=== PATIENT | female | born 1965 | race Two or more races ===

== ENCOUNTER 2020-10-24 13:02 | Outpatient (REF) | payer OTHER, SELFPAY ==
--- NOTE | 2020-10-24 13:07 | MM_ITS ---
EXAMINATION: MM SCREENING DIGITAL BREAST TOMOSYNTHESIS, BILATERAL CLINICAL INFORMATION: Screening. Asymptomatic. The lifetime risk of breast cancer based on the Tyrer-Cuzick Model is 5.0%. COMPARISON: Mammography: October 19, 2019 and studies dating back to February 07, 2012 TECHNIQUE: Digital breast tomosynthesis is performed in both the craniocaudal and mediolateral oblique views along with computer-aided detection (CAD). Synthesized 2D images are generated from the tomosynthesis. FINDINGS: There are scattered areas of fibroglandular density (ACR BI-RADS breast composition Category b). There are no significant masses, abnormal calcifications, or other abnormalities. MM/MM tomosynthesis screening BI IMPRESSION: There are no significant changes from prior study. ASSESSMENT: BI-RADS 1: Negative RECOMMENDATION: Routine annual mammography screening. This patient's information was entered into a reminder system with a target due date for their next mammogram.
== END 2020-10-24 13:03 | disposition home or self-care (01) ==
LOC: HO.MAMMO 13:02
PROVIDERS: PCP Internal Medicine; Visit Provider Internal Medicine
DX: Z12.31 Encounter for screening mammogram for malignant neoplasm of breast (principal)
CPT/HCPCS: 77063; 77067

== ENCOUNTER 2021-07-05 09:43 | Outpatient (REF) | payer OTHER, SELFPAY ==
--- NOTE | ~2021-07-05 | US_ITS ---
EXAMINATION: US ABDOMEN COMPLETE CLINICAL INFORMATION: Abnormal findings of blood chemistry. COMPARISON: CT abdomen and pelvis 06/22/2007. TECHNIQUE: Real-time imaging of the abdominal viscera. FINDINGS: PANCREAS: Normal. ABDOMINAL AORTA: The proximal, mid, and distal segments are normal in caliber. INFERIOR VENA CAVA: Visualized portions are normal. LIVER: The liver is normal in size. The liver contour is normal. Liver echotexture is increased. No focal hepatic lesion. There is no intrahepatic biliary duct dilatation seen. GALLBLADDER: Normal. The gallbladder is physiologically distended without evidence of stones, sludge, polyps, wall thickening or pericholecystic fluid. COMMON BILE DUCT: Normal in caliber measuring 0.3 cm in diameter. RIGHT KIDNEY: Normal. No hydronephrosis. No renal calculi or focal parenchymal lesions. The kidney measures 10.5 cm in maximum dimension. LEFT KIDNEY: Normal. No hydronephrosis. No renal calculi or focal parenchymal lesions. The kidney measures 9.8 cm in maximum dimension. SPLEEN: Normal. The spleen measures 9.9 cm in maximum dimension. FREE FLUID: None. US/US abdomen complete IMPRESSION: Echogenic liver probably representing fatty infiltration.
== END 2021-07-05 09:44 | disposition home or self-care (01) ==
LOC: HO.US 09:43
PROVIDERS: PCP Internal Medicine; Visit Provider Internal Medicine
DX: R79.89 Other specified abnormal findings of blood chemistry (principal)
CPT/HCPCS: 76700

== ENCOUNTER 2021-11-16 13:50 | Outpatient (REF) | payer OTHER, SELFPAY ==
[2021-11-16 14:20] LABS: MANUAL DIFF FLAG NO
[2021-11-16 14:39] LABS: Basophils Percent Auto 0.4 % (0-2); Eosinophils Absolute Auto 0.3 X10*3/uL (0.0-0.4); Eosinophils Percent Auto 3.2 % (0-4); Hematocrit 43.1 % (37.0-47.0); Hemoglobin 13.9 g/dl (12.0-16.0); Imm Gran Abs Auto 0.03 X10*3/uL (0.00-0.03); Imm Gran Pct Auto 0.4 % (0.0-0.4); Lymphocytes Absolute Auto 2.6 X10*3/uL (1.2-4.9); Lymphocytes Percent Auto 33.1 % (20-40); Mean Corpuscular HGB Conc 32.3 g/dl (31.0-35.0); Mean Corpuscular Hemoglobin 29.4 pg (27.0-33.0); Mean Corpuscular Volume 91.1 fL (80.0-98.0); Mean Platelet Volume 12.7 fL (9.4-12.3); Monocytes Absolute Auto 0.6 X10*3/uL (0.1-1.2); Monocytes Percent Auto 7.4 % (2-11); Neutrophils Absolute Auto 4.4 x10*3/uL (2.0-8.3); Neutrophils Percent Auto 55.5 % (45-73); Platelet Count 146 X10*3/uL (160-400); Red Blood Count 4.73 X10*6/uL (4.20-5.50); Red Cell Distribution Width 13.5 % (11.0-16.0); White Blood Count 7.9 X10*3/uL (4.8-10.8)
[2021-11-16 14:44] LABS: INTERNATIONAL NORM RATIO 1.1 (0.9-1.1); Prothrombin Time 12.8 SEC (9.9-13.0)
[2021-11-16 15:19] LABS: Alanine Aminotransferase 78 U/L (0-31); Albumin Level 4.1 g/dL (3.5-5.0); Alkaline Phosphatase 254 U/L (39-117); Aspartate Amino Transferase 94 U/L (5-31); Bilirubin Direct 0.2 mg/dL (0.0-0.5); Bilirubin Total 0.6 mg/dL (0.0-1.0); Iron 106 mcg/dL (30-160); Percent Iron Saturation 23 % (15-50); Total Iron Binding Capacity 455 mcg/dL (228-428); Total Protein 7.7 g/dL (6.5-8.0); Unsaturated Iron Binding 349 ug/dL
[2021-11-16 15:41] LABS: Ferritin 75 ng/mL (10-250)
[2021-11-19 13:31] LABS: Alpha 1 Anti-trypsin 185 mg/dL (83-199)
[2021-11-19 15:55] LABS: Mitochondrial Antibodies NEGATIVE (NEGATIVE)
[2021-11-20 14:43] LABS: Anti Nuclear Antibody Pattern Nuclear, Centromere; Anti Nuclear Antibody Screen POSITIVE (NEGATIVE)
[2021-11-21 13:32] LABS: Smooth Muscle Antibody <20 U (<20)
[2021-11-22 08:17] LABS: FIB-ALT 66 U/L (6-29); FIB-Alpha-2-Macroglobulin 301 mg/dL (106-279); FIB-Apolipoprotein A1 138 mg/dL (101-198); FIB-GGT 144 U/L (3-70); FIB-Haptoglobin 113 mg/dL (43-212); FIB-Total Bilirubin 0.5 mg/dL (0.2-1.2); Liver Fibrosis Score 0.58; Liver Fibrosis Stage F3; Nec Inflam Act Grade A1-A2
== END 2021-11-16 13:51 | disposition home or self-care (01) ==
LOC: HO.LAB 13:50
PROVIDERS: PCP Internal Medicine; Visit Provider Internal Medicine
DX: R79.89 Other specified abnormal findings of blood chemistry (principal); K76.0 Fatty (change of) liver, not elsewhere classified
CPT/HCPCS: 36415; 80076; 81596; 82103; 82728; 83540; 85025; 85610; 86015; 86038; 86039; 86255; 86256

== ENCOUNTER 2021-11-23 10:10 | Outpatient (REF) | payer OTHER, SELFPAY ==
--- NOTE | ~2021-11-23 | MM_ITS ---
EXAMINATION: MM SCREENING DIGITAL BREAST TOMOSYNTHESIS, BILATERAL CLINICAL INFORMATION: Screening. Asymptomatic. The lifetime risk of breast cancer based on the Tyrer-Cuzick Model is 7%. COMPARISON: Mammography: 10/24/2020, 10/19/2019, 09/21/2018 TECHNIQUE: Digital breast tomosynthesis is performed in both the craniocaudal and mediolateral oblique views along with computer-aided detection (CAD). Synthesized 2D images are generated from the tomosynthesis. FINDINGS: There are scattered areas of fibroglandular density (ACR BI-RADS breast composition Category b). There are no significant masses, abnormal calcifications, or other abnormalities. Parenchymal pattern is similar to prior studies. There are no significant changes. MM/MM tomosynthesis screening BI IMPRESSION: No mammographic evidence of malignancy. ASSESSMENT: BI-RADS 1: Negative RECOMMENDATION: Routine annual mammography screening. This patient's information was entered into a reminder system with a target due date for their next mammogram.
== END 2021-11-23 10:11 | disposition home or self-care (01) ==
LOC: HO.MAMMO 10:10
PROVIDERS: PCP Internal Medicine; Visit Provider Internal Medicine
DX: Z12.31 Encounter for screening mammogram for malignant neoplasm of breast (principal)
CPT/HCPCS: 77063; 77067

== ENCOUNTER 2021-12-13 10:40 | Outpatient (REF) | payer OTHER, SELFPAY ==
[2021-12-13 10:54] LABS: MANUAL DIFF FLAG NO
[2021-12-13 11:09] LABS: Basophils Percent Auto 0.6 % (0-2); Eosinophils Absolute Auto 0.2 X10*3/uL (0.0-0.4); Eosinophils Percent Auto 3.7 % (0-4); Hematocrit 42.8 % (37.0-47.0); Hemoglobin 13.7 g/dl (12.0-16.0); Imm Gran Abs Auto 0.02 X10*3/uL (0.00-0.03); Imm Gran Pct Auto 0.3 % (0.0-0.4); Lymphocytes Absolute Auto 2.2 X10*3/uL (1.2-4.9); Lymphocytes Percent Auto 34.1 % (20-40); Mean Corpuscular Hemoglobin 29.7 pg (27.0-33.0); Mean Corpuscular Volume 92.6 fL (80.0-98.0); Mean Platelet Volume 12.3 fL (9.4-12.3); Monocytes Absolute Auto 0.5 X10*3/uL (0.1-1.2); Monocytes Percent Auto 8.1 % (2-11); Neutrophils Absolute Auto 3.4 x10*3/uL (2.0-8.3); Neutrophils Percent Auto 53.2 % (45-73); Platelet Count 163 X10*3/uL (160-400); Red Blood Count 4.62 X10*6/uL (4.20-5.50); Red Cell Distribution Width 13.6 % (11.0-16.0); White Blood Count 6.4 X10*3/uL (4.8-10.8)
[2021-12-13 11:12] LABS: INTERNATIONAL NORM RATIO 1.2 (0.9-1.1); Prothrombin Time 13.2 SEC (9.9-13.0)
[2021-12-13 11:15] LABS: Partial Thromboplastin Time 44.4 SEC (24.1-38.0)
[2021-12-13 11:35] LABS: Alanine Aminotransferase 99 U/L (0-31); Alkaline Phosphatase 222 U/L (39-117); Aspartate Amino Transferase 100 U/L (5-31); Bilirubin Direct 0.2 mg/dL (0.0-0.5); Bilirubin Total 0.7 mg/dL (0.0-1.0); Total Protein 7.4 g/dL (6.5-8.0)
[2021-12-13 11:46] LABS: Gamma Glutamyl Transpeptidase 171 U/L (7-33)
[2021-12-16 21:42] LABS: Prot Elec - Albumin 3.9 g/dL (3.8-4.8); Prot Elec - Alpha1 0.3 g/dL (0.2-0.3); Prot Elec - Alpha2 0.8 g/dL (0.5-0.9); Prot Elec - Beta 1 0.6 g/dL (0.4-0.6); Prot Elec - Beta 2 0.4 g/dL (0.2-0.5); Prot Elec - Gamma 1.2 g/dL (0.8-1.7); Prot Elec - Total Protein 7.2 g/dL (6.1-8.1)
== END 2021-12-13 10:41 | disposition home or self-care (01) ==
LOC: HO.LAB 10:40
PROVIDERS: PCP Internal Medicine; Visit Provider Internal Medicine
DX: R79.89 Other specified abnormal findings of blood chemistry (principal); R76.8 Other specified abnormal immunological findings in serum
CPT/HCPCS: 36415; 80076; 82977; 84165; 85025; 85610; 85730

== ENCOUNTER 2021-12-19 11:33 | Day surgery (SDC) | payer OTHER, SELFPAY ==
[2021-12-19] VITALS (9 sets, daily range): BP systolic 103–129; BP diastolic 56–76; PULSE 73–94; RESP 15–18; TEMP 36.8–37.3; O2SAT 94–99; BMI 39.8
--- NOTE | ~2021-12-19 | US_ITS ---
EXAMINATION: US GUIDED LIVER CORE BIOPSY CLINICAL INFORMATION: Elevated LFTs. COMPARISON: 07/05/2021 TECHNIQUE: Ultrasound-guided liver core biopsy. FINDINGS: Informed consent was obtained from the patient prior to the procedure. During this process, the procedure and potential alternatives were explained, along with the intended outcome and benefits. The risks of the procedure, as well as the risk of not doing the procedure, were discussed. The patient was given the opportunity to ask questions regarding the procedure and appeared competent to make medical decisions. A signed consent form which documents this discussion was placed in the medical record. Using sterile technique and ultrasound guidance, a 17-gauge guiding needle was directed into the left lobe of liver. Two 18-gauge core biopsies were then obtained and placed in formalin. Patient tolerated procedure without difficulty. US/US biopsy liver IMPRESSION: Hepatic core biopsy as described.
[2021-12-19 12:03] LABS: MANUAL DIFF FLAG NO
[2021-12-19 12:09] LABS: Basophils Percent Auto 0.6 % (0-2); Eosinophils Absolute Auto 0.2 X10*3/uL (0.0-0.4); Eosinophils Percent Auto 2.7 % (0-4); Hematocrit 43.9 % (37.0-47.0); Hemoglobin 14.1 g/dl (12.0-16.0); Imm Gran Abs Auto 0.02 X10*3/uL (0.00-0.03); Imm Gran Pct Auto 0.3 % (0.0-0.4); Lymphocytes Absolute Auto 2.7 X10*3/uL (1.2-4.9); Lymphocytes Percent Auto 40.5 % (20-40); Mean Corpuscular HGB Conc 32.1 g/dl (31.0-35.0); Mean Corpuscular Hemoglobin 29.5 pg (27.0-33.0); Mean Corpuscular Volume 91.8 fL (80.0-98.0); Mean Platelet Volume 12.2 fL (9.4-12.3); Monocytes Absolute Auto 0.5 X10*3/uL (0.1-1.2); Monocytes Percent Auto 6.9 % (2-11); Neutrophils Absolute Auto 3.3 x10*3/uL (2.0-8.3); Platelet Count 162 X10*3/uL (160-400); Red Blood Count 4.78 X10*6/uL (4.20-5.50); Red Cell Distribution Width 13.5 % (11.0-16.0); White Blood Count 6.7 X10*3/uL (4.8-10.8)
[2021-12-19 12:12] LABS: INTERNATIONAL NORM RATIO 1.2 (0.9-1.1); Prothrombin Time 13.1 SEC (9.9-13.0)
[2021-12-19 12:15] LABS: Partial Thromboplastin Time 49.6 SEC (24.1-38.0)
[2021-12-19] MEDS: Lidocaine HCl 1 % MPF 5 ML VIAL SUBCUT (13:55)
== END 2021-12-19 17:00 | disposition home or self-care (01) ==
PROVIDERS: Radiology Diagnostic Radiology; PCP Internal Medicine; Visit Provider Radiology Diagnostic Radiology
DX: R79.89 Other specified abnormal findings of blood chemistry (principal); R76.8 Other specified abnormal immunological findings in serum; K76.0 Fatty (change of) liver, not elsewhere classified; E78.5 Hyperlipidemia, unspecified; R31.29 Other microscopic hematuria; E66.9 Obesity, unspecified; Z68.39 Body mass index [BMI] 39.0-39.9, adult; Z79.899 Other long term (current) drug therapy
CPT/HCPCS: 36415; 47000; 76942; 85025; 85610; 85730; 88307; 88313; 99152; J2250; J3010

== ENCOUNTER 2022-01-02 10:51 | Outpatient (REF) | payer OTHER, SELFPAY ==
[2022-01-02 12:57] LABS: Alanine Aminotransferase 69 U/L (0-31); Alkaline Phosphatase 220 U/L (39-117); Aspartate Amino Transferase 55 U/L (5-31); Bilirubin Direct 0.2 mg/dL (0.0-0.5); Bilirubin Total 0.5 mg/dL (0.0-1.0); Total Protein 7.3 g/dL (6.5-8.0)
== END 2022-01-02 10:52 | disposition home or self-care (01) ==
LOC: HO.LAB 10:51
PROVIDERS: PCP Internal Medicine; Visit Provider Internal Medicine
DX: K76.0 Fatty (change of) liver, not elsewhere classified (principal); R79.89 Other specified abnormal findings of blood chemistry
CPT/HCPCS: 36415; 80076

== ENCOUNTER 2022-04-29 12:01 | Outpatient (REF) | payer OTHER, SELFPAY ==
[2022-04-29 13:15] LABS: Cholesterol 186 mg/dL; HDL Cholesterol 36 mg/dL; LDL Cholesterol Calculated 125 mg/dl; Triglycerides 126 mg/dL
[2022-04-29 13:16] LABS: Alanine Aminotransferase 45 U/L (0-31); Albumin Level 3.9 g/dL (3.5-5.0); Alkaline Phosphatase 176 U/L (39-117); Aspartate Amino Transferase 58 U/L (5-31); Bilirubin Direct 0.3 mg/dL (0.0-0.5); Bilirubin Total 0.6 mg/dL (0.0-1.0); Total Protein 7.2 g/dL (6.5-8.0)
== END 2022-04-29 12:02 | disposition home or self-care (01) ==
LOC: HO.LAB 12:01
PROVIDERS: Absent Provider Internal Medicine; PCP Internal Medicine; Visit Provider Internal Medicine
DX: E78.5 Hyperlipidemia, unspecified (principal); K76.0 Fatty (change of) liver, not elsewhere classified; R79.89 Other specified abnormal findings of blood chemistry
CPT/HCPCS: 36415; 80061; 80076

== ENCOUNTER 2022-08-13 13:57 | Outpatient (REF) | payer OTHER, SELFPAY ==
[2022-08-13 16:23] LABS: Alanine Aminotransferase 65 U/L (0-31); Albumin Level 3.9 g/dL (3.5-5.0); Alkaline Phosphatase 199 U/L (39-117); Aspartate Amino Transferase 93 U/L (5-31); Bilirubin Direct 0.2 mg/dL (0.0-0.5); Bilirubin Total 0.6 mg/dL (0.0-1.0); Cholesterol 194 mg/dL; HDL Cholesterol 41 mg/dL; LDL Cholesterol Calculated 129 mg/dl; Total Protein 7.5 g/dL (6.5-8.0); Triglycerides 123 mg/dL
[2022-08-18 14:01] LABS: ANA Pattern 2 Nuclear, Homogeneous; ANA Titer 2 1:40 titer; Anti Nuclear Antibody Pattern Nuclear, Centromere; Anti Nuclear Antibody Screen POSITIVE (NEGATIVE)
== END 2022-08-13 13:58 | disposition home or self-care (01) ==
LOC: HO.LAB 13:57
PROVIDERS: Internal Medicine; Absent Provider Internal Medicine; PCP Internal Medicine; Visit Provider Family Medicine
DX: E78.5 Hyperlipidemia, unspecified (principal); K76.0 Fatty (change of) liver, not elsewhere classified; R79.89 Other specified abnormal findings of blood chemistry; K74.00 Hepatic fibrosis, unspecified
CPT/HCPCS: 36415; 80061; 80076; 86038; 86039

== ENCOUNTER 2022-11-26 10:45 | Outpatient (REF) | payer OTHER, SELFPAY ==
--- NOTE | ~2022-11-26 | MM_ITS ---
EXAMINATION: MM SCREENING DIGITAL BREAST TOMOSYNTHESIS, BILATERAL CLINICAL INFORMATION: Screening. Asymptomatic. The lifetime risk of breast cancer based on the Tyrer-Cuzick Model is 6.0%. COMPARISON: Mammography: November 23, 2021 and studies dating back to July 06, 2015 TECHNIQUE: Digital breast tomosynthesis is performed in both the craniocaudal and mediolateral oblique views along with computer-aided detection (CAD). Synthesized 2D images are generated from the tomosynthesis. FINDINGS: There are scattered areas of fibroglandular density (ACR BI-RADS breast composition Category b). There are no significant masses, abnormal calcifications, or other abnormalities. MM/MM tomosynthesis screening BI IMPRESSION: No significant changes from prior exam. ASSESSMENT: BI-RADS 1: Negative RECOMMENDATION: Routine annual mammography screening. This patient's information was entered into a reminder system with a target due date for their next mammogram.
== END 2022-11-26 10:46 | disposition home or self-care (01) ==
LOC: HO.MAMMO 10:45
PROVIDERS: Visit Provider Internal Medicine
DX: Z12.31 Encounter for screening mammogram for malignant neoplasm of breast (principal)
CPT/HCPCS: 77063; 77067

== ENCOUNTER 2022-12-05 14:15 | Outpatient (REF) | payer OTHER, SELFPAY ==
[2022-12-05 14:33] LABS: MANUAL DIFF FLAG NO
[2022-12-05 14:46] LABS: INTERNATIONAL NORM RATIO 1.2 (0.9-1.1); Prothrombin Time 13.8 SEC (10.0-13.1)
[2022-12-05 14:51] LABS: Basophils Absolute Auto 0.1 X10*3/uL (0.0-0.2); Eosinophils Absolute Auto 0.1 X10*3/uL (0.0-0.4); Eosinophils Percent Auto 1.5 % (0-4); Hematocrit 42.6 % (37.0-47.0); Hemoglobin 13.8 g/dl (12.0-16.0); Imm Gran Abs Auto 0.03 X10*3/uL (0.00-0.03); Imm Gran Pct Auto 0.4 % (0.0-0.4); Lymphocytes Absolute Auto 2.3 X10*3/uL (1.2-4.9); Lymphocytes Percent Auto 31.1 % (20-40); Mean Corpuscular HGB Conc 32.4 g/dl (31.0-35.0); Mean Corpuscular Hemoglobin 29.7 pg (27.0-33.0); Mean Corpuscular Volume 91.8 fL (80.0-98.0); Mean Platelet Volume 12.1 fL (9.4-12.3); Monocytes Absolute Auto 0.5 X10*3/uL (0.1-1.2); Monocytes Percent Auto 6.4 % (2-11); Neutrophils Absolute Auto 4.4 x10*3/uL (2.0-8.3); Neutrophils Percent Auto 59.6 % (45-73); Platelet Count 154 X10*3/uL (160-400); Red Blood Count 4.64 X10*6/uL (4.20-5.50); Red Cell Distribution Width 13.2 % (11.0-16.0); White Blood Count 7.3 X10*3/uL (4.8-10.8)
[2022-12-05 15:14] LABS: Alanine Aminotransferase 51 U/L (0-31); Albumin Level 3.7 g/dL (3.5-5.0); Alkaline Phosphatase 191 U/L (39-117); Aspartate Amino Transferase 83 U/L (5-31); Bilirubin Direct 0.3 mg/dL (0.0-0.5); Bilirubin Total 0.7 mg/dL (0.0-1.0); Total Protein 7.5 g/dL (6.5-8.0)
[2022-12-09 14:24] LABS: Smooth Muscle Antibody <20 U (<20)
[2022-12-10 13:19] LABS: Mitochondrial Antibodies NEGATIVE (NEGATIVE)
[2022-12-10 15:52] LABS: Anti Nuclear Antibody Pattern Nuclear, Centromere; Anti Nuclear Antibody Screen POSITIVE (NEGATIVE)
[2022-12-10 23:24] LABS: Liver Kidney Microsomal Ab <=20.0 U (<=20.0)
[2022-12-12 16:33] LABS: FIB-ALT 43 U/L (6-29); FIB-Alpha-2-Macroglobulin 311 mg/dL (106-279); FIB-Apolipoprotein A1 115 mg/dL (101-198); FIB-GGT 36 U/L (3-70); FIB-Haptoglobin 72 mg/dL (43-212); FIB-Total Bilirubin 0.6 mg/dL (0.2-1.2); Liver Fibrosis Score 0.62; Liver Fibrosis Stage F3; Nec Inflam Act Grade A1; Nec Inflam Act Score 0.34
== END 2022-12-05 14:16 | disposition home or self-care (01) ==
LOC: HO.LAB 14:15
PROVIDERS: PCP Internal Medicine; Visit Provider Internal Medicine
DX: R79.89 Other specified abnormal findings of blood chemistry (principal); R76.8 Other specified abnormal immunological findings in serum; K75.81 Nonalcoholic steatohepatitis (NASH); K76.0 Fatty (change of) liver, not elsewhere classified
CPT/HCPCS: 36415; 80076; 81596; 85025; 85610; 86015; 86038; 86039; 86255; 86256; 86376

== ENCOUNTER 2023-04-03 11:46 | Outpatient (REF) | payer OTHER, SELFPAY ==
[2023-04-03 12:48] LABS: Alanine Aminotransferase 35 U/L (0-31); Albumin Level 3.3 g/dL (3.5-5.0); Alkaline Phosphatase 168 U/L (39-117); Aspartate Amino Transferase 72 U/L (5-31); Bilirubin Direct 0.7 mg/dL (0.0-0.5); Bilirubin Total 1.3 mg/dL (0.0-1.0); Total Protein 7.1 g/dL (6.5-8.0)
== END 2023-04-03 11:47 | disposition home or self-care (01) ==
LOC: HO.LAB 11:46
PROVIDERS: Visit Provider Internal Medicine
DX: K76.0 Fatty (change of) liver, not elsewhere classified (principal); R79.89 Other specified abnormal findings of blood chemistry
CPT/HCPCS: 36415; 80076

== ENCOUNTER 2023-05-05 08:47 | Outpatient (REF) | payer OTHER, SELFPAY | END 2023-05-05 08:48 | disposition home or self-care (01) | LOC: HO.HOSX 08:47 | PROVIDERS: Visit Provider Physician Assistant | DX: Z13.89 Encounter for screening for other disorder (principal) ==

== ENCOUNTER 2023-05-20 08:42 | Outpatient (REF) | payer OTHER, SELFPAY | END 2023-05-20 08:43 | disposition home or self-care (01) | LOC: HO.HOSX 08:42 | PROVIDERS: Visit Provider Physician Assistant | DX: Z13.89 Encounter for screening for other disorder (principal) ==

== ENCOUNTER 2023-06-19 08:39 | Outpatient (AMB) | payer OTHER, SELFPAY ==
[2023-06-19 08:41] VITALS: BP 112/72; PULSE 78; TEMP 36.7; O2SAT 98; BMI 32.1
--- NOTE | 2023-06-19 08:41 | MHC.OFFVIS ---
Intake Vital Signs 06/19/23 08:41 Height 5 ft 2 in Weight 175 lb 11.335 oz BMI 32.1 BP 112/72 Blood Pressure Location Lt brachial Position Sitting Pulse 78 Pulse Source Pulse Oximeter Temp 98.1 F Temp Source Skin Pulse Oximetry (%) 98 Oxygen Delivery Method Room Air Intake Visit Reasons: Positive LUCÍA Intake Note: New patient here for positive LUCÍA. 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 Senior Computer Specialist Required: Yes Senior Computer Specialist Language: Slab Installer Name: Clemente [email or web address] Information Interpreted: clinical only Accompanied by: Self / Same As Patient Allergies No Known Allergies [No Known Allergies*] Allergy (Unverified 06/19/23 08:44) Medication List - Last Reconciled 06/19/23 by Fred Pappas MD cetirizine 10 mg PO DAILY clotrimazole 1% appl topical diclofenac sodium 1% topical BID emtricitabine-tenofovir (TDF) 200-300 mg 1 tab PO DAILY meloxicam 15 mg PO DAILY sertraline 100 mg PO DAILY ursodiol mg PO BID HPI HPI Comments History of Present Illness Details The patient is referred for evaluation of a positive LUCÍA. She does have some liver disease and this is thought to be steatohepatitis. They did do some laboratory work and the LUCÍA was positive at a titer of 1:1280. This was in a centromere pattern. She does have some knee pain that is worse with weight-bearing activity. She has received corticosteroid injections in Orthopedics for this that were helpful. There is no known history of injury to the knees. They do not really show any swelling. She takes Truvada because her has HIV although his viral load is suppressed with triple therapy. She has been trying to lose weight to help the liver issue. [facility] Medical History (Updated 06/19/23 @ 09:17 by Fred Pappas MD) Hx of obesity Hx of mixed hyperlipidemia History of fatty infiltration of liver History of elevated antinuclear antibody (LUCÍA) Social History (Updated 06/19/23 @ 08:47 by GROVER Queen) Household Members: Spouse and None Household Members Other:: daughter Alcohol intake: never Patient Tobacco Use Status: Never used Tobacco Current occupational status: unemployed Review of Systems Const Details: Some intentional weight loss. Negative for appetite change, fever, chills, malaise and fatigue Eyes Details: Itchy eyes at times attributed to allergy. Negative for vision change, dry eyes,headaches and dizziness ENT Details: Negative for hearing change, tinnitus, oral ulcer, nose bleeds and oral dryness. Card Details: Negative chest pain, edema and syncope Resp Details: Negative for SOB, cough and wheezing GI Details: Negative indigestion/heartburn, nausea, abdominal pain, bowel changes, diarrhea, constipation and bloody stool. Details: Negative for dysuria, hematuria, nocturia, decreased force/flow and genital discharge Skin/Breast Details: Negative for itching, rash, hives, Raynaud's symptoms, sun sensitivity, and skin cancer Neuro Details: Negative for epilepsy, palsy, stroke, changes in speech, tingling and weakness Psych Details: Depression stable on current meds. Endo Details: Negative for polyuria and polydypsia Davy/Lymph Details: Negative for excessive bruising or bleeding. Physical Exam Vital Signs: Last Vital Signs Temp 98.1 F 06/19/23 08:41 Pulse 78 06/19/23 08:41 BP 112/72 06/19/23 08:41 Pulse Ox 98 06/19/23 08:41 Oxygen Delivery Method Room Air 06/19/23 08:41 BMI result Body Mass Index 32.1 APPEARANCE: Patient in no acute distress EYES no redness, pupils equal and reactive to light, eyelids normal EARS: External ear normal, canal clear and tympanic membrane normal. NOSE/SINUS: Airflow through both nares, no nasal discharge, no bleeding THROAT: Oral mucosa moist, no ulcerations NECK: No thyromegaly or masses, no adenopathy, trachea midline. HEART: Regulrar rhythm, S1-S2 heard, no murmurs, rubs or gallops. LUNG: Clear to percussion and auscultation ABD: Normal bowel sounds. The liver edge is palpable about 2 cm below the right costal margin. No nodularity or tenderness. Elsewhere no organomegaly, masses or tenderness. EXTREMITIES: No edema, no calf tenderness, normal peripheral pulses. NEURO: Oriented and alert x3. No focal weakness. Reflexes symmetric. Gait normal. SKIN: No inflammatory or neoplastic lesions. Normal color and turgor JOINT EXAM:.?? Cervical Spine:.? Full range of motion without pain; no tenderness. Thoracic Spine:.? No scoliosis.? No tenderness on palpation. Lumbar Spine:.? Alignment normal.? Full range of motion without pain, no tenderness. Chest Wall:.? No tenderness, swelling, increased warmth or erythema. Hands:.? Normal pain-free range of motion without tenderness, swelling, increased warmth or erythema. Able to make a full fist and has a good sustainability director strength. Wrists:.? Normal pain-free range of motion without tenderness, swelling, increased warmth or erythema. Elbows:. Normal pain-free range of motion without tenderness, swelling, increased warmth or erythema. Shoulders:.?? Full range of motion without pain. No tenderness, weakness, swelling, increased warmth or erythema. Hips:.? Full range of motion without pain. Hip bursa:.? No tenderness. Knees:.?? Normal pain-free range of motion with some mild patellofemoral crepitus. There is minimal medial compartment tenderness but no effusion, swelling, increased warmth or erythema.? Ankles:.? Normal pain-free range of motion without tenderness, swelling, increased warmth or erythema. Feet:.? There is mild, nontender 1st MTP bony enlargement bilaterally. This is a bit more prominent on the right where it is associated with some hallux valgus deformity. The rest of the joints have normal pain-free range of motion without tenderness, swelling, increased warmth or erythema. Tender points:.? No tenderness to digital palpation at the occiput, trapezius, second rib, lateral epicondyle, knees, greater trochanter and gluteal area bilaterally. ? Assessment & Plan Assessment & Plan (1) History of fatty infiltration of liver: Comment: on liver biopsy 12/2021 Code(s): Z87.19 - Personal history of other diseases of the digestive system (2) Osteoarthritis of knees, bilateral: Code(s): M17.0 - Bilateral primary osteoarthritis of knee (3) History of elevated antinuclear antibody (LUCÍA): Code(s): Z87.898 - Personal history of other specified conditions Plan Her symptoms and signs do not really suggest an active inflammatory arthritis. The LUCÍA titer is fairly high and is of a centromere pattern. This would suggest CREST syndrome. However she does not really have any manifestations of that disorder. There are signs of osteoarthritis in the knees. I tried to reassure her that I do not really see signs of an active autoimmune inflammatory disease. We will check some other serologies to look into the LUCÍA. I do not think rheumatology follow-up is needed unless further symptoms develop or the antibody studies show further questions. Orders: Orders Anti DNA DS Antibody Today Z87.898 - Personal history of other specified conditions Anti-Centromere B Antibodies Today Z87.89 - Personal history of other specified conditions Creatinine Today Z87.898 - Personal history of other specified conditions Erythrocyte Sedimentation Rate Today Z87.898 - Personal history of other specified conditions Protein Creatinine Ratio, Ur Today Z87.89 - Personal history of other specified conditions Anti Extractable Nuclear Ag Today Z87.89 - Personal history of other specified conditions Complete Blood Count Auto Diff Today Z87.89 - Personal history of other specified conditions Coding Level of Care Code New Pt Level 3 (45257) Diagnoses History of fatty infiltration of liver Z87.19 Osteoarthritis of knees, bilateral M17.0 History of elevated antinuclear antibody (LUCÍA) Z87.898
== END 2023-06-19 09:16 | disposition home or self-care (01) ==
LOC: HO.RHE 08:39
PROVIDERS: PCP Internal Medicine; Visit Provider Internal Medicine Rheumatology
DX: Z87.19 Personal history of other diseases of the digestive system (principal); M17.0 Bilateral primary osteoarthritis of knee; Z87.898 Personal history of other specified conditions
CPT/HCPCS: 99203

== ENCOUNTER → 2023-06-19 08:39 | Outpatient (BNVA) | payer OTHER, SELFPAY | PROVIDERS: PCP Internal Medicine; Visit Provider Internal Medicine Rheumatology ==

== ENCOUNTER 2023-06-19 09:19 | Outpatient (REF) | payer OTHER, SELFPAY ==
[2023-06-19 10:48] LABS: MANUAL DIFF FLAG NO
[2023-06-19 10:55] LABS: Basophils Absolute Auto 0.1 X10*3/uL (0.0-0.2); Basophils Percent Auto 1.1 % (0-2); Eosinophils Absolute Auto 0.2 X10*3/uL (0.0-0.4); Eosinophils Percent Auto 2.5 % (0-4); Hematocrit 41.5 % (37.0-47.0); Hemoglobin 13.5 g/dl (12.0-16.0); Imm Gran Abs Auto 0.01 X10*3/uL (0.00-0.03); Imm Gran Pct Auto 0.2 % (0.0-0.4); Lymphocytes Absolute Auto 1.7 X10*3/uL (1.2-4.9); Mean Corpuscular HGB Conc 32.5 g/dl (31.0-35.0); Mean Corpuscular Hemoglobin 31.6 pg (27.0-33.0); Mean Corpuscular Volume 97.2 fL (80.0-98.0); Mean Platelet Volume 12.3 fL (9.4-12.3); Monocytes Absolute Auto 0.6 X10*3/uL (0.1-1.2); Monocytes Percent Auto 8.7 % (2-11); Neutrophils Absolute Auto 3.9 x10*3/uL (2.0-8.3); Neutrophils Percent Auto 61.5 % (45-73); Platelet Count 123 X10*3/uL (160-400); Red Blood Count 4.27 X10*6/uL (4.20-5.50); Red Cell Distribution Width 14.3 % (11.0-16.0); White Blood Count 6.3 X10*3/uL (4.8-10.8)
[2023-06-19 11:19] LABS: Estimated Glomerular Filt Rate > 60
[2023-06-19 11:29] LABS: Creatinine Urine 107.55 mg/dL; Protein/Creatinine Ratio, Ur 0.09 (<0.2); Total Protein Urine Random 10 mg/dL (<12)
[2023-06-19 11:53] LABS: Erythrocyte Sedimentation Rate 34 MM/HR (0-20)
[2023-06-23 20:44] LABS: Anti-Centromere B Antibodies 7.4 POS AI (<1.0 NEG)
[2023-06-24 19:44] LABS: Anti DNA DS Antibody 16 IU/mL; SM/Ribonucleoprotein Ab <1.0 NEG AI (<1.0 NEG); Smith Protein <1.0 NEG AI (<1.0 NEG)
== END 2023-06-19 09:20 | disposition home or self-care (01) ==
LOC: HO.10HDL 09:19
PROVIDERS: Visit Provider Internal Medicine Rheumatology
DX: Z87.898 Personal history of other specified conditions (principal)
CPT/HCPCS: 36415; 82565; 82570; 84156; 85025; 85652; 86225; 86235

== ENCOUNTER 2023-07-07 08:49 | Outpatient (REF) | payer OTHER, SELFPAY ==
[2023-07-07 10:20] LABS: Cholesterol 154 mg/dL (<200); HDL Cholesterol 27 mg/dL (>40); LDL Cholesterol Calculated 104 mg/dL (<100); Triglycerides 115 mg/dL (<150)
[2023-07-07 10:33] LABS: Alanine Aminotransferase 20 U/L (0-31); Albumin Level 3.3 g/dL (3.5-5.0); Alkaline Phosphatase 161 U/L (39-117); Aspartate Amino Transferase 59 U/L (5-31); Bilirubin Direct 0.8 mg/dL (0.0-0.5); Bilirubin Total 1.6 mg/dL (0.0-1.0); Total Protein 7.4 g/dL (6.5-8.0)
[2023-07-07 13:06] LABS: Reflex LDLD? No
== END 2023-07-07 08:50 | disposition home or self-care (01) ==
LOC: HO.LAB 08:49
PROVIDERS: PCP Internal Medicine; Visit Provider Internal Medicine
DX: E78.2 Mixed hyperlipidemia (principal); K74.69 Other cirrhosis of liver
CPT/HCPCS: 36415; 80061; 80076

== ENCOUNTER 2023-08-12 10:05 | Outpatient (REF) | payer OTHER, SELFPAY | END 2023-08-12 10:06 | disposition home or self-care (01) | LOC: HO.HOSX 10:05 | PROVIDERS: Visit Provider Physician Assistant | DX: Z13.89 Encounter for screening for other disorder (principal) ==

== ENCOUNTER 2023-09-01 08:30 | Outpatient (REF) | payer OTHER, SELFPAY ==
--- NOTE | ~2023-09-01 | US_ITS ---
EXAMINATION: US COMPLETE LIMITED WITH LIVER ELASTOGRAPHY CLINICAL INFORMATION: Steatohepatitis with elevated liver function tests. COMPARISON: Abdominal ultrasound dated 07/05/2021. TECHNIQUE: Real-time imaging of the abdominal viscera. Noninvasive ultrasound liver fibrosis assessment is performed using Samanta ElastPQ point quantification shear wave elastography (2D-SWE) with a C5-2 MHz transducer. Multiple elastography samples are obtained. FINDINGS: PANCREAS: Normal. The visualized pancreatic head and body are normal in appearance. The remainder of the pancreas is obscured from visualization by the overlying bowel gas. LIVER: The liver demonstrates normal size, contour and increased echogenicity. No focal lesion or intrahepatic biliary duct dilatation. The right lobe measures 16.8 cm in length. The left lobe measures 11.3 cm in length. Portal flow is towards the liver (hepatopetal). Shear wave liver elastography median stiffness is 1.68 m/s (reference: normal median stiffness is 1.3 m/s or less). IQR/median stiffness to assess sampling precision is 0.19 (reference: good quality data set is IQR/median stiffness of 0.15 or less). GALLBLADDER: Normal. The gallbladder is physiologically distended without evidence of stones, sludge, polyps, wall thickening or pericholecystic fluid. COMMON BILE DUCT: Normal in caliber measuring 0.3 cm in diameter. RIGHT KIDNEY: Normal. No hydronephrosis. No renal calculi or focal parenchymal lesions. The kidney measures 10.0 cm in maximum dimension. FREE FLUID: None demonstrated. US/US abdomen comp w elastography IMPRESSION: 1. There is borderline hepatomegaly. 2. There is generalized increase in hepatic echotexture, consistent with fatty infiltration or hepatocellular disease. Please correlate clinically. No focal hepatic mass or intrahepatic biliary dilatation is seen. 3. Liver elastography: Although measurements appear to rule out compensated advanced chronic liver disease, there is statistical variability of the sampling which decreases accuracy. REFERENCE: Society of Radiologists in Ultrasound Liver Stiffness Thresholds (2020): LIVER STIFFNESS THRESHOLDS: *Liver Stiffness equal or less than 1.3 m/s: High probability of being normal. *Liver Stiffness less than 1.7 m/s: In the absence of other known clinical signs, rules out compensated advanced chronic liver disease. *Liver Stiffness 1.7-2.1 m/s: Suggestive of compensated advanced chronic liver disease but need further test for confirmation. *Liver Stiffness over 2.1 m/s: Rules in compensated advanced chronic liver disease. *Liver Stiffness over 2.4 m/s: Suggestive of clinically significant portal hypertension. QUALITY OF DATA SET: *IQR/Median value equal or less than 0.15 implies a quality data set. *IQR/Median value over 0.15 implies a poor quality data set. SIGNIFICANT CHANGE FROM PRIOR EXAM: Significant change if liver stiffness measurement is 10% or greater from prior exam. OTHER CONSIDERATIONS: The stage of liver fibrosis may be overestimated in the setting of acute hepatitis, liver inflammation, elevated liver function tests, hepatic vascular congestion, obstructive cholestasis, non-fasting state, and infiltrative diseases such as amyloidosis and lymphoma. In some patients with NAFLD, the liver stiffness thresholds for compensated advanced chronic liver disease may be lower. In causes other than viral hepatitis and NAFLD, liver stiffness thresholds are not well established.
== END 2023-09-01 08:31 | disposition home or self-care (01) ==
LOC: HO.US 08:30
PROVIDERS: PCP Internal Medicine; Visit Provider Internal Medicine
DX: R79.89 Other specified abnormal findings of blood chemistry (principal); K74.00 Hepatic fibrosis, unspecified
CPT/HCPCS: 76705; 76981

== ENCOUNTER 2023-09-23 08:41 | Outpatient (AMB) | payer OTHER, SELFPAY ==
--- NOTE | 2023-09-23 08:45 | MHC.OFFVIS ---
Intake Vital Signs 09/23/23 09:02 Height 5 ft 2 in Weight 179 lb 3.773 oz BMI 32.8 BP 96/60 Blood Pressure Location Rt brachial Position Sitting Pulse 78 Pulse Source Pulse Oximeter Temp 97 F Temp Source Skin Pulse Oximetry (%) 98 Oxygen Delivery Method Room Air Intake Visit Reasons: History LUCÍA+ Intake Note: Patient last seen 06/19/23, presents today for follow up and test results. Restorative Art Embalmer Required: Yes Restorative Art Embalmer Language: Diesel Pile Hammer Operator Name: Libra Swartz [id number] Information Interpreted: clinical only Accompanied by: Self / Same As Patient Allergies No Known Allergies [No Known Allergies*] Allergy (Unverified 09/23/23 09:03) HPI HPI Comments History of Present Illness Details Ms. Ferrer, 58-year-old female returns for follow-up evaluation of her positive LUCÍA 1:1280, centromere pattern. She she was found to have a positive LUCÍA in August of 2022. Further evaluation with labs found that her double-stranded DNA and centromere antibodies were positive. With regards to connective tissue diseases, this would suggest that patient may have crest syndrome and/or lupus. However, currently she has no related symptoms and denies past experiences and incidences. She does have some liver disease and this is thought to be steatohepatitis (GARVEY) and so she has been trying to lose weight to help mitigate the liver concerns. Additionally, she does have some knee pain that is worse with weight-bearing activity, and follows with Ortho. She has received corticosteroid injections in Orthopedics for this that were helpful. There is no known history of injury to the knees. Patient denies Raynaud's phenomenon, butterfly rash on face or other rashes; denies photosensitivity - getting sick or developing a rash from being out in the sun; denies blood or froth in urine; patient denies hx of SOB, chest pain. Patient denies hx of Carditis or Pleuritis. Patient denies any history of DVT/PE. The patient reports never have had o take aspirin or a blood thinner during the successful pregnancies. Denies fevers, excessive fatigue, unexplained weight-loss or weight-gain, Denies: thinning hair or hair loss; Denies: dry, itchy eyes, red burning eyes needing steroids to treat; dry mouth, mouth sores or ulcers; nose bleed; ringing in the ear, Denies blood or mucous in stool; nausea, vomiting and diarrhea , difficulty swallowing, heartburn. She takes Truvada because her has HIV although his viral load is suppressed with triple therapy. [facility] Medical History (Updated 06/19/23 @ 09:17 by Fred Pappas MD) Hx of obesity Hx of mixed hyperlipidemia History of fatty infiltration of liver History of elevated antinuclear antibody (LUCÍA) Social History (Updated 06/19/23 @ 08:47 by GROVER Queen) Household Members: Spouse and None Household Members Other:: daughter Alcohol intake: never Patient Tobacco Use Status: Never used Tobacco Current occupational status: unemployed Review of Systems Const All systems reviewed & are unremarkable except as noted in HPI and below Physical Exam Vital Signs: BMI result Body Mass Index 32.8 APPEARANCE: Patient in no acute distress EYES no redness, pupils equal and reactive to light, eyelids normal EARS: External ear normal, canal clear and tympanic membrane normal. NOSE/SINUS: Airflow through both nares, no nasal discharge, no bleeding THROAT: Oral mucosa moist, no ulcerations NECK: No thyromegaly or masses, no adenopathy, trachea midline. HEART: Regulrar rhythm, S1-S2 heard, no murmurs, rubs or gallops. LUNG: Clear to percussion and auscultation ABD: Normal bowel sounds. The liver edge is palpable about 2 cm below the right costal margin. No nodularity or tenderness. Elsewhere no organomegaly, masses or tenderness. EXTREMITIES: No edema, no calf tenderness, normal peripheral pulses. NEURO: Oriented and alert x3. No focal weakness. Reflexes symmetric. Gait normal. SKIN: No inflammatory or neoplastic lesions. Normal color and turgor JOINT EXAM:.?? Cervical Spine:.? Full range of motion without pain; no tenderness. Thoracic Spine:.? No scoliosis.? No tenderness on palpation. Lumbar Spine:.? Alignment normal.? Full range of motion without pain, no tenderness. Chest Wall:.? No tenderness, swelling, increased warmth or erythema. Hands:.? Normal pain-free range of motion without tenderness, swelling, increased warmth or erythema. Able to make a full fist and has a good restaurant host/hostess strength. Wrists:.? Normal pain-free range of motion without tenderness, swelling, increased warmth or erythema. Elbows:. Normal pain-free range of motion without tenderness, swelling, increased warmth or erythema. Shoulders:.?? Full range of motion without pain. No tenderness, weakness, swelling, increased warmth or erythema. Hips:.? Full range of motion without pain. Hip bursa:.? No tenderness. Knees:.?? Normal pain-free range of motion with some mild patellofemoral crepitus. There is minimal medial compartment tenderness but no effusion, swelling, increased warmth or erythema.? Ankles:.? Normal pain-free range of motion without tenderness, swelling, increased warmth or erythema. Feet:.? There is mild, nontender 1st MTP bony enlargement bilaterally. This is a bit more prominent on the right where it is associated with some hallux valgus deformity. The rest of the joints have normal pain-free range of motion without tenderness, swelling, increased warmth or erythema. Tender points:.? No tenderness to digital palpation at the occiput, trapezius, second rib, lateral epicondyle, knees, greater trochanter and gluteal area bilaterally. ? Results Reviewed Results Reviewed: Laboratory Tests 12/05/22 12/05/22 06/19/23 14:31 14:31 09:30 ESR Creatinine 0.82 Total Bilirubin Direct Bilirubin AST ALT Alkaline Phosphatase LUCÍA Screen POSITIVE A LUCÍA Titer 1:1280 H LUCÍA Titer 2 1:80 H LUCÍA Pattern Nuclear, Centromere A Sm (Kwok) Antibody SM/EXTRUSION DIE TEMPLATE MAKER IgG Antibody Double Strand DNA Ab Centromere B Antibody Anti-Mitochondrial Ab NEGATIVE Anti-Smooth Muscle Ab <20 Janna/Kid Microsom Ab Int <=20.0 06/19/23 06/19/23 07/07/23 09:30 09:30 09:16 ESR 34 H Creatinine Total Bilirubin 1.6 H Direct Bilirubin 0.8 H AST 59 H ALT 20 Alkaline Phosphatase 161 H LUCÍA Screen LUCÍA Titer LUCÍA Titer 2 LUCÍA Pattern Sm (Kwok) Antibody <1.0 NEG SM/EXTRUSION DIE TEMPLATE MAKER IgG Antibody <1.0 NEG Double Strand DNA Ab 16 H Centromere B Antibody 7.4 POS A Anti-Mitochondrial Ab Anti-Smooth Muscle Ab Janna/Kid Microsom Ab Int 09/01/2023 EXAMINATION: US COMPLETE LIMITED WITH LIVER ELASTOGRAPHY CLINICAL INFORMATION: Steatohepatitis with elevated liver function tests. COMPARISON: Abdominal ultrasound dated 07/05/2021. US/US abdomen comp w elastography IMPRESSION: 1. There is borderline hepatomegaly. 2. There is generalized increase in hepatic echotexture, consistent with fatty infiltration or hepatocellular disease. Please correlate clinically. No focal hepatic mass or intrahepatic biliary dilatation is seen. 3. Liver elastography: Although measurements appear to rule out compensated advanced chronic liver disease, there is statistical variability of the sampling which decreases accuracy. 12/19/2021 [facility] [id number] DIAGNOSIS LIVER, BIOPSY: Steatohepatitis with: - Moderate portal and mild lobular chronic inflammation with rare eosinophils. - Predominantly microvesicular steatosis involving 30-40% of the tissue with focal balloon cell degeneration. - Portal and sinusoidal fibrosis with focal nodule formation (Stage 3 fibrosis). See description and comment. COMMENT: The findings are most consistent with a toxic/metabolic etiology. Please correlate with other clinical and laboratory findings (including viral and other autoimmune markers). Microscopic Description Sections have cores of liver tissue with predominantly portal chronic inflammation comprised of lymphocytes and few eosinophils. A few areas of lobular inflammation are also identified. Mixed, predominantly microvesicular, steatosis is present involving approximately 30-40% of the parenchyma with scattered balloon cell degeneration identified. Portal and sinusoidal fibrosis is present with focal nodule formation on trichrome stain. The hepatic plates appear normal on reticulin stain. No significant iron deposition is present on iron stain and no intracytoplasmic PAS positive material is identifie Assessment & Plan Assessment & Plan (1) History of fatty infiltration of liver: Comment: on liver biopsy 12/2021 Code(s): Z87.19 - Personal history of other diseases of the digestive system (2) Osteoarthritis of knees, bilateral: Code(s): M17.0 - Bilateral primary osteoarthritis of knee (3) History of elevated antinuclear antibody (LUCÍA): Code(s): Z87.898 - Personal history of other specified conditions Plan #+LUCÍA/DsDNA/Centromere Antibody: Ms. Ferrer's lab results shows highly positive LUCÍA,1:1280, with centromere pattern, and some postive extractable nuclear antigens (FRANCISCO) which are for double-stranded DNA(anti-dsDNA) and centromere antibodies. Within the context of connective tissue diseases, the presence of centromere and dsDNA antibodies usually suggest crest syndrome(C.R.E.S.T)/Sclerosis and SLE respectively. However, the patient denies past and present episodes of associated symptoms. Additionally, her joint symptoms and features do not suggest an active inflammatory arthritis. There are signs of osteoarthritis in the knees but I have reassured her that I do not see signs of an active autoimmune inflammatory disease at this time. I have discussed with her features to observed for and gave her a printout of symptoms for CREST which do have some overlap symptoms of SLE. Notwithstanding, this serology can also be related to her known liver concerns for which she is being followed by GI and takes Ursodiol. Anti-centromere antibodies (ACAs) are detected in patients with various autoimmune diseases such as Sj?gren?s syndrome (SS), systemic sclerosis (SSc) and primary biliary cholangitis (PBC).? Birgit N, Latricia M, Fadi K, Kanrosa m Y, Arsen H, Cedrick K, Saul H, Gautam S, Vesta H, Tsmaggie K, Takeuchi T. Anti-centromere antibodies target centromere-kinetochore macrocomplex: a comprehensive autoantigen profiling. [facility] Rheum Dis. 2020;80(5):651-659. doi: 10.1136/[id number]. Epub 2019Aug 23. PMID: [id number]; PMCID: [id number].. Coding Level of Care Code Est Pt Level 3 (56081) Diagnoses History of fatty infiltration of liver Z87.19 Osteoarthritis of knees, bilateral M17.0 History of elevated antinuclear antibody (LUCÍA) Z87.898
[2023-09-23 09:02] VITALS: BP 96/60; PULSE 78; TEMP 36.1; O2SAT 98; BMI 32.8
== END 2023-09-23 09:24 | disposition home or self-care (01) ==
PROVIDERS: PCP Internal Medicine; Visit Provider Nurse Practitioner Family
DX: Z87.19 Personal history of other diseases of the digestive system (principal); M17.0 Bilateral primary osteoarthritis of knee; Z87.898 Personal history of other specified conditions
CPT/HCPCS: 99213

== ENCOUNTER → 2023-09-23 08:41 | Outpatient (BNVA) | payer OTHER, SELFPAY | PROVIDERS: PCP Internal Medicine; Visit Provider Nurse Practitioner Family | DX: M17.0 Bilateral primary osteoarthritis of knee (principal); Z87.19 Personal history of other diseases of the digestive system; Z87.898 Personal history of other specified conditions | CPT/HCPCS: 99212 ==

== ENCOUNTER 2023-11-26 12:51 | Outpatient (REF) | payer OTHER, SELFPAY ==
[2023-11-26 13:08] LABS: MANUAL DIFF FLAG NO
[2023-11-26 13:55] LABS: Basophils Absolute Auto 0.1 X10*3/uL (0.0-0.2); Basophils Percent Auto 0.7 % (0-2); Eosinophils Absolute Auto 0.2 X10*3/uL (0.0-0.4); Eosinophils Percent Auto 2.5 % (0-4); Hematocrit 37.1 % (37.0-47.0); Hemoglobin 12.1 g/dl (12.0-16.0); Imm Gran Abs Auto 0.02 X10*3/uL (0.00-0.03); Imm Gran Pct Auto 0.3 % (0.0-0.4); Lymphocytes Absolute Auto 2.1 X10*3/uL (1.2-4.9); Lymphocytes Percent Auto 27.4 % (20-40); Mean Corpuscular HGB Conc 32.6 g/dl (31.0-35.0); Mean Corpuscular Hemoglobin 30.6 pg (27.0-33.0); Mean Corpuscular Volume 93.9 fL (80.0-98.0); Mean Platelet Volume 12.4 fL (9.4-12.3); Monocytes Absolute Auto 0.6 X10*3/uL (0.1-1.2); Monocytes Percent Auto 8.2 % (2-11); Neutrophils Absolute Auto 4.7 x10*3/uL (2.0-8.3); Neutrophils Percent Auto 60.9 % (45-73); Platelet Count 120 X10*3/uL (160-400); Red Blood Count 3.95 X10*6/uL (4.20-5.50); Red Cell Distribution Width 14.8 % (11.0-16.0); White Blood Count 7.7 X10*3/uL (4.8-10.8)
[2023-11-26 13:56] LABS: INTERNATIONAL NORM RATIO 1.3 (0.9-1.1); Prothrombin Time 15.5 SEC (11.1-13.3)
[2023-11-26 14:18] LABS: Alanine Aminotransferase 22 U/L (0-31); Alkaline Phosphatase 167 U/L (39-117); Aspartate Amino Transferase 54 U/L (5-31); Bilirubin Direct 0.7 mg/dL (0.0-0.5); Bilirubin Total 1.1 mg/dL (0.0-1.0)
[2023-11-27 13:19] LABS: Alpha Fetoprotein 8.1 ng/mL
[2023-11-30 20:04] LABS: FIB-ALT 21 U/L (6-29); FIB-Alpha-2-Macroglobulin 253 mg/dL (106-279); FIB-Apolipoprotein A1 84 mg/dL (101-198); FIB-GGT 25 U/L (3-70); FIB-Haptoglobin 34 mg/dL (43-212); FIB-Total Bilirubin 1.1 mg/dL (0.2-1.2); Liver Fibrosis Score 0.77; Liver Fibrosis Stage F4; Nec Inflam Act Grade A0; Nec Inflam Act Score 0.16
== END 2023-11-26 12:52 | disposition home or self-care (01) ==
LOC: HO.LAB 12:51
PROVIDERS: PCP Internal Medicine; Visit Provider Internal Medicine
DX: K74.00 Hepatic fibrosis, unspecified (principal); R79.89 Other specified abnormal findings of blood chemistry
CPT/HCPCS: 36415; 80076; 81596; 82105; 85025; 85610

== ENCOUNTER 2023-12-03 10:44 | Outpatient (REF) | payer OTHER, SELFPAY | END 2023-12-03 10:45 | disposition home or self-care (01) | LOC: HO.MAMMO 10:44 | PROVIDERS: PCP Internal Medicine; Visit Provider Internal Medicine | DX: Z12.31 Encounter for screening mammogram for malignant neoplasm of breast (principal) | CPT/HCPCS: 77063; 77067 ==

== ENCOUNTER → 2023-12-03 11:00 | Outpatient (BNV) | payer OTHER, SELFPAY | PROVIDERS: PCP Internal Medicine; Visit Provider Radiology Diagnostic Radiology | DX: Z12.31 Encounter for screening mammogram for malignant neoplasm of breast (principal) | CPT/HCPCS: 77063; 77067 ==

== ENCOUNTER 2023-12-12 10:37 | Outpatient (REF) | payer OTHER, SELFPAY ==
[2023-12-12 11:49] LABS: MANUAL DIFF FLAG NO
[2023-12-12 12:01] LABS: Basophils Absolute Auto 0.1 X10*3/uL (0.0-0.2); Basophils Percent Auto 0.9 % (0-2); Eosinophils Absolute Auto 0.2 X10*3/uL (0.0-0.4); Eosinophils Percent Auto 3.8 % (0-4); Hematocrit 35.4 % (37.0-47.0); Hemoglobin 11.3 g/dl (12.0-16.0); Imm Gran Abs Auto 0.01 X10*3/uL (0.00-0.03); Imm Gran Pct Auto 0.2 % (0.0-0.4); Lymphocytes Absolute Auto 1.7 X10*3/uL (1.2-4.9); Lymphocytes Percent Auto 29.3 % (20-40); Mean Corpuscular HGB Conc 31.9 g/dl (31.0-35.0); Mean Corpuscular Hemoglobin 30.6 pg (27.0-33.0); Mean Corpuscular Volume 95.9 fL (80.0-98.0); Mean Platelet Volume 12.3 fL (9.4-12.3); Monocytes Absolute Auto 0.5 X10*3/uL (0.1-1.2); Monocytes Percent Auto 9.2 % (2-11); Neutrophils Absolute Auto 3.3 x10*3/uL (2.0-8.3); Neutrophils Percent Auto 56.6 % (45-73); Platelet Count 104 X10*3/uL (160-400); Red Blood Count 3.69 X10*6/uL (4.20-5.50); Red Cell Distribution Width 14.4 % (11.0-16.0); White Blood Count 5.7 X10*3/uL (4.8-10.8)
[2023-12-12 12:04] LABS: INTERNATIONAL NORM RATIO 1.3 (0.9-1.1); Prothrombin Time 16.2 SEC (11.1-13.3)
[2023-12-12 13:02] LABS: Alanine Aminotransferase 20 U/L (0-31); Albumin Level 2.9 g/dL (3.5-5.0); Alkaline Phosphatase 150 U/L (39-117); Amylase 120 U/L (28-100); Aspartate Amino Transferase 42 U/L (5-31); Bilirubin Direct 0.7 mg/dL (0.0-0.5); Bilirubin Total 1.2 mg/dL (0.0-1.0); Blood Urea Nitrogen 7 mg/dL (9-16); Estimated Glomerular Filt Rate > 60; Lipase 69 U/L (8-78); Total Protein 6.6 g/dL (6.5-8.0)
== END 2023-12-12 10:38 | disposition home or self-care (01) ==
LOC: HO.10HDL 10:37
PROVIDERS: Visit Provider Internal Medicine
DX: K76.0 Fatty (change of) liver, not elsewhere classified (principal); K74.00 Hepatic fibrosis, unspecified; R79.89 Other specified abnormal findings of blood chemistry; R77.2 Abnormality of alphafetoprotein; R10.13 Epigastric pain
CPT/HCPCS: 36415; 80076; 82150; 82565; 83690; 84520; 85025; 85610

== ENCOUNTER 2024-01-15 09:30 | Outpatient (REF) | payer OTHER, SELFPAY ==
--- NOTE | ~2024-01-15 | MR_ITS ---
EXAMINATION: MR ABDOMEN WITHOUT AND WITH CONTRAST CLINICAL INFORMATION: Fatty liver, stage III hepatic fibrosis by ultrasound guided liver biopsy on 12/19/2021, abnormal liver function test COMPARISON: MRI abdomen on 05/02/2023 TECHNIQUE: Examination was performed in a high field strength MRI scanner. Multiplanar multiphasic imaging of the abdomen was performed without IV contrast enhancement. Multiphasic Axial T1 weighted fat suppressed images of the upper abdomen were obtained after IV injection of 8 mL Gadavist. Coronal T1 weighted fat-suppressed images of the abdomen were obtained following the dynamic axial series. FINDINGS: LIVER: The liver shows lobulated contour. Contrast enhanced dynamic images are markedly limited by patient motion blurring. An observation with diffuse arterial phase hyperenhancement is seen at posterior lateral corner of left hepatic lobe segment IVb measuring 1.2 x 1.6 cm in size (previously 1.1 x 1.7 cm), remains T1 hyperintense on portal venous phase, mostly T1 isointense on more delayed postcontrast images. The calculated hepatic fat percentage is 5.0%, compatible with mild hepatic steatosis. HEPATOBILIARY: Gallbladder is normal without filling defects. Common bile duct is not dilated. PANCREAS: No focal pancreatic lesion with abnormal signal can be seen. SPLEEN: Spleen is normal in size without focal lesion. ADRENAL: Bilateral adrenal glands are normal in shape and size. KIDNEYS: Bilateral kidneys are normal in size with a stable T2 hyperintense nonenhancing simple cyst measuring 0.7 cm in diameter at posterior medial superior right renal cortex, for which no follow up imaging is recommended. L5-S1 degenerative lumbar disc disease is present. MR/MR abdomen wo/w con IMPRESSION: 1. Unchanged hepatic cirrhosis and Mild hepatic steatosis. 2. Stable 1.2 x 1.6 cm arterial phase hyperenhancing observation at posterior lateral corner of left hepatic lobe segment IVb, remains T1 hyperintense on portal venous phase, mostly T1 isointense on more delayed postcontrast images, compatible with stable LI-RADS 3 observation. 3. Stable 0.7 cm simple cyst at posterior medial superior right renal cortex, for which no follow up imaging is recommended.
[2024-01-15] MEDS: gadobutroL 10 ML VIAL IVPUSH (10:31)
== END 2024-01-15 09:31 | disposition home or self-care (01) ==
LOC: HO.MRI 09:30
PROVIDERS: PCP Internal Medicine; Visit Provider Internal Medicine
DX: K76.0 Fatty (change of) liver, not elsewhere classified (principal); K74.00 Hepatic fibrosis, unspecified; R79.89 Other specified abnormal findings of blood chemistry; R77.2 Abnormality of alphafetoprotein
CPT/HCPCS: 74183; A9585

== ENCOUNTER 2024-03-03 08:16 | Day surgery (SDC) | payer OTHER, SELFPAY ==
[2024-02-27 13:30] VITALS: BMI 30.7
[2024-03-03 08:57] VITALS: BP 145/75; PULSE 68; RESP 16; TEMP 37.1; O2SAT 98
[2024-03-03] MEDS: Lactated Ringers 1,000 ML 80 ML IVCONT (09:08)
--- NOTE | 2024-03-03 09:21 | P.CONAN_ITS ---
[facility] Active Problems Active Problems: All Active Problems Osteoarthritis of knees, bilateral (Acute) History of fatty infiltration of liver (Acute) History of elevated antinuclear antibody (LUCÍA) (Acute) Hx of mixed hyperlipidemia (Acute) Hx of obesity (Acute) Past Medical History Medical History (Updated 02/27/24 @ 13:32 by Zulma Momin RN) Family history of HIV Hx of obesity Hx of mixed hyperlipidemia History of fatty infiltration of liver History of elevated antinuclear antibody (LUCÍA) Family History Family history of problems with anesthesia: No Surgical History Surgical History (Updated 02/27/24 @ 13:32 by Zulma Momin RN) History of liver biopsy H/O colonoscopy History of Problems with Anesthesia: No Social History Social History (Updated 06/19/23 @ 08:47 by GROVER Urbano) Household Members: Spouse and None Household Members Other:: daughter Alcohol intake: never Patient Tobacco Use Status: Never used Tobacco Second Hand Smoke Exposure: No Use of substances other than those prescribed or required for medical reasons: No Are you DNR?: No Advance Directives: No Advance Directives Information Provided: Yes Advance Directives on File: No Current occupational status: unemployed Meds Allergies Allergy/AdvReac Type Severity Reaction Status Date / Time No Known Allergies Allergy Unverified 09/23/23 09:03 [No Known Allergies*] Active Medications: Current Medications Lactated Ringer's (Lr) 1,000 mls @ 80 mls/hr IVCONT .[id number] DEMAR Last Admin: 03/03/24 09:08 Dose: 80 mls/hr Sodium Biphosphate/Sodium Phosphate (Sodium Phosphate,Ellis-Dibasic 133 Ml Enema) 133 ml NJ ONCE PRN PRN Reason: Poor Colonoscopy Prep Results Home Medications ?Medication ?Instructions ?Recorded ?Confirmed ?Last Taken ?Type cetirizine 10 mg tablet 10 mg PO DAILY 06/12/23 02/27/24 Unknown History clotrimazole 1 % topical cream 1 appl topical DAILY 06/12/23 02/27/24 Unknown History diclofenac sodium 1 % topical gel 1 ea topical BID 06/12/23 02/27/24 Unknown History emtricitabine 200 mg-tenofovir 1 tab PO DAILY 06/12/23 02/27/24 Unknown History disoproxil fumarate 300 mg tablet meloxicam 15 mg tablet 15 mg PO DAILY 06/12/23 02/27/24 Unknown History sertraline 100 mg tablet 100 mg PO DAILY 06/12/23 02/27/24 Unknown History ursodiol 500 mg tablet 500 mg PO BID 06/12/23 02/27/24 Unknown History Exam Height,Weight and Vital Signs: Height 5 ft 4 in Weight 81.193 kg Last Vital Signs Temp 98.7 F 03/03/24 08:57 Pulse 68 03/03/24 08:57 Resp 16 03/03/24 08:57 BP 145/75 H 03/03/24 08:57 Pulse Ox 98 03/03/24 08:57 O2 Del Method Room Air 03/03/24 08:57 Airway Mallampati Class: III TM Dist: >3cm Neck ROM: Full Assessment and Plan Assessment Anesthesia Assessment: Anesthesia Plan Discussed and Chart Reviewed Final Anesthetic Review Family History of Problems with Anesthesia: No History of Problems with Anesthesia: No NPO: Yes ASA Class: III Final Preanesthetic Review: No Changes in Pt Med Stat, Meds/Allgs Chart Reviewed, Consent Obtained/Reviewed and Anes Risks/Benef Reviewed Patient Risk: Intermediate Procedure Risk: Low Anesthetic Plan Anesthetic Plan: TIVA Disposition: Standard PACU
--- NOTE | 2024-03-03 10:59 | P.BOP_ITS ---
Brief Operative Note Date of Service: 03/03/24 Pre-op diagnosis: GERD, abd pain, Screening Post-op diagnosis: other (Gastropathy, Hiatal hernia, Diverticulosis) Procedure: EGD, Colonoscopy to the cecum Surgeon: Raj Manuel MD Anesthesia: MAC Was an Family Engagement Specialist used for this Procedure?: No Estimated blood loss (mL): 0 Pathology: none sent Condition: stable Disposition: PACU
[2024-03-03 11:00] VITALS: BP 102/54; PULSE 74; RESP 16; TEMP 36.4; O2SAT 98
[2024-03-03 11:15] VITALS: BP 115/61; PULSE 69; RESP 16; TEMP 36.4; O2SAT 98
[2024-03-03 11:30] VITALS: BP 122/80; PULSE 70; RESP 16; TEMP 36.3; O2SAT 100
--- NOTE | 2024-03-03 11:48 | OP_ITS ---
DATE OF SERVICE: 03/03/2024 SURGEON: Raj Manuel MD INDICATIONS: The patient presents for evaluation of underlying cirrhosis, abdominal discomfort, and colorectal cancer screening. Full consent has been obtained from her for this, including risks of bleeding and perforation. PREOPERATIVE DIAGNOSIS: POSTOPERATIVE DIAGNOSIS: PROCEDURE PERFORMED: Esophagogastroduodenoscopy, and colonoscopy to the cecum. ESTIMATED BLOOD LOSS: COMPLICATIONS: ANESTHESIA: Monitored anesthesia care. ASSISTANTS: SPECIMENS: PREOPERATIVE DIAGNOSES: Cirrhosis, gastroesophageal reflux, abdominal discomfort, and colorectal cancer screening. POSTOPERATIVE DIAGNOSES: Cirrhosis, gastroesophageal reflux, abdominal discomfort, colorectal cancer screening, hiatal hernia, mild portal gastropathy, diverticulosis, and internal hemorrhoids. DESCRIPTION OF PROCEDURE: The patient was placed in the left lateral decubitus position. The Olympus video gastroscope was passed in the posterior oropharynx and upper esophagus under direct vision. The scope was passed slowly into the distal esophagus. The gastroesophageal junction appeared at 35 cm. There was slight evidence of minimal irregularity consistent with reflux, but no evidence of esophagitis nor Hurd esophagus. With insufflation of air, I did not visualize any sign of varices, although there was a purplish hue to the submucosa. The scope entered the stomach. There was a small hiatal hernia. The scope was advanced to pylorus and the duodenum was cannulated to the descending portion. The duodenum including the bulb appeared normal without mass or ulceration. The scope was withdrawn back to the stomach. The gastric antrum and body appeared normal with good peristalsis. The scope was retroflexed, visualizing the proximal stomach carefully, which had changes consistent with some gastropathy with some mild cobblestoning of the mucosa. There was no ulceration, mass, nor varices. The scope was straightened and withdrawn back to the esophagus. Again, with insufflation of air, I did not appreciate any varices. The scope was withdrawn from the patient. She was turned around for the colonoscopy. The digital rectal exam revealed no abnormalities. The Olympus video pediatric colonoscope was then entered into the rectum and advanced easily to the cecum. Once in the cecum, I did identify normal-appearing cecal pouch with appendiceal orifice and a normal-appearing ileocecal valve. There was transillumination of light deep in the right lower quadrant. The entire cecum and ileocecal valve appeared normal. The scope was slowly withdrawn assessing all mucosal surfaces carefully. Preparation was excellent. In the ascending colon, were approximately 2 or 3 mm polyps. In the transverse colon, was an approximately 4 mm polyp. Given her relative coagulopathy and thrombocytopenia, and the minimal nature of the polyps, I did not biopsy nor removed them. I did not visualize any sign of other polyps, colitis, nor angiodysplasia. There was a mild amount of sigmoid diverticulosis. In the rectum, scope was retroflexed, visualizing some small internal hemorrhoids, but no other pathology. The scope was straightened and withdrawn from the patient. She tolerated both procedures well and was returned to the recovery area in stable condition. IMPRESSION: 1. Proximal portal gastropathy. 2. Hiatal hernia. 3. Gastroesophageal reflux. 4. Diverticulosis. 5. Internal hemorrhoids. PLAN: At this point, the patient reports that her previous abdominal discomfort has improved on omeprazole and I did advise to continue that. She has been given instructions not to use any aspirin or NSAIDs on a long-term basis given the underlying liver disease, relative thrombocytopenia, and relative coagulopathy. I would recommend a repeat colonoscopy in 10 years for further screening if she is stable from a clinical standpoint. She will continue her Ursodiol for the underlying fatty liver and liver disease. She will be seen by the [facility] for a followup visit. A recent MRI of the liver was nonrevealing. There was evidence of cirrhosis, but no sign of any suspicious liver mass. She has been advised to call me prior to the [facility] office visit if need be. This has been discussed with her . MD FRANK Ruiz/ALBERT / [id number]
== END 2024-03-03 12:24 | disposition home or self-care (01) ==
PROVIDERS: PCP Internal Medicine; Visit Provider Internal Medicine
PROC: (CPT 43235; principal; 2024-03-03 09:30)
DX: K76.6 Portal hypertension (principal); K31.89 Other diseases of stomach and duodenum; K44.9 Diaphragmatic hernia without obstruction or gangrene; K21.9 Gastro-esophageal reflux disease without esophagitis; R10.13 Epigastric pain; Z12.11 Encounter for screening for malignant neoplasm of colon; K57.30 Diverticulosis of large intestine without perforation or abscess without bleeding; K64.8 Other hemorrhoids; K76.0 Fatty (change of) liver, not elsewhere classified; K74.00 Hepatic fibrosis, unspecified; R79.89 Other specified abnormal findings of blood chemistry; R77.2 Abnormality of alphafetoprotein; E78.2 Mixed hyperlipidemia; Z79.899 Other long term (current) drug therapy
CPT/HCPCS: 43235; 45378; J1596; J2704

== ENCOUNTER 2024-05-18 08:21 | Emergency (ER) | payer OTHER, SELFPAY ==
--- NOTE | ~2024-05-18 | XR_ITS ---
EXAMINATION: XR LUMBOSACRAL SPINE CLINICAL INFORMATION: Back pain COMPARISON: None available. TECHNIQUE: Three views of the lumbosacral spine. FINDINGS: 5 lumbar type vertebral bodies are identified. Mild anterolisthesis L4 on L5, grade 1 anterolisthesis L5 on S1 with disc space narrowing. Vertebral body heights are maintained. Pedicles and SI joints within normal limits. No hip joint narrowings. Nonspecific bowel pattern with prominent thick-walled left mid abdominal small bowel loops. Phleboliths. XR/XR lumbar spine 2-3V IMPRESSION: Lower lumbar and lumbosacral anterolistheses and L5-S1 disc space narrowing.
[2024-05-18 08:22] VITALS: BP 131/61; PULSE 59; RESP 19; TEMP 36.6; O2SAT 98; BMI 34.0
--- NOTE | 2024-05-18 09:27 | ED.GENADULT ---
HPI - General Adult General Chief complaint: Extremity Injury, Lower Stated complaint: both feet in pain Time Seen by Provider: 05/18/24 09:04 Source: patient and RN notes reviewed Mode of arrival: ambulatory Limitations: no limitations History of Present Illness ED Provider: Ying Reynolds PA-C HPI narrative: This is a 59-year-old female who presents emergency department with complaints of low back pain x 1 week. Patient denies any recent trauma or injury. She states that she woke up with last week and felt pain in her back. She states that the pain is constant and radiates down both of her legs. She expresses a electricity like sensation in her bilateral legs. Reports pain worsens with ambulation and with weight-bearing. She denies any saddle anesthesia. She does report some urinary symptoms, expressing that when she urinates she is able to urinate however stops mid stream and has to urinate a little bit more. She denies any dysuria, hematuria. She denies any fevers or chills. No chest pain or shortness of breath. No abdominal pain, nausea or vomiting. She has been taking Tylenol at home which has provided her with minimal relief. No other complaints or concerns at this time. MD complaint: Low back pain Onset (ago): week(s) Location: back Radiation: non-radiation Relieving factors: rest Exacerbating factors: movement Associated symptoms: denies other symptoms Treatments prior to arrival: none Related Data Home Medications ?Medication ?Instructions ?Recorded ?Confirmed cetirizine 10 mg tablet 10 mg PO DAILY 06/12/23 02/27/24 clotrimazole 1 % topical cream 1 appl topical DAILY 06/12/23 02/27/24 diclofenac sodium 1 % topical gel 1 ea topical BID 06/12/23 02/27/24 emtricitabine 200 mg-tenofovir 1 tab PO DAILY 06/12/23 02/27/24 disoproxil fumarate 300 mg tablet meloxicam 15 mg tablet 15 mg PO DAILY 06/12/23 02/27/24 sertraline 100 mg tablet 100 mg PO DAILY 06/12/23 02/27/24 ursodiol 500 mg tablet 500 mg PO BID 06/12/23 02/27/24 Previous Rx's ?Medication ?Instructions ?Recorded cyclobenzaprine 10 mg tablet 10 mg PO TID PRN muscle spasm #10 05/18/24 tabs ibuprofen 400 mg tablet 400 mg PO Q6H PRN pain #30 tabs 05/18/24 lidocaine 5 % topical patch 1 patch topical DAILY #30 ea 05/18/24 (Lidoderm) prednisone 20 mg tablet 40 mg (2 x 20 mg) PO DAILY 5 days 05/18/24 #10 tabs Allergies Allergy/AdvReac Type Severity Reaction Status Date / Time No Known Allergies Allergy Verified 05/18/24 08:26 [No Known Allergies*] Review of Systems Review of Systems: Yes all other systems are reviewed and are negative Constitutional: Constitutional: Reports as per HPI [facility] Past Medical History Medical History (Updated 05/18/24 @ 12:38 by MAX Melendez) Family history of HIV Hx of obesity Hx of mixed hyperlipidemia History of fatty infiltration of liver History of elevated antinuclear antibody (LUCÍA) Surgical History (Updated 02/27/24 @ 13:32 by Zulma Momin RN) History of liver biopsy H/O colonoscopy Social History Social History (Updated 06/19/23 @ 08:47 by GROVER Urbano) Household Members: Spouse and None Household Members Other:: daughter Alcohol intake: never Patient Tobacco Use Status: Never used Tobacco Second Hand Smoke Exposure: No Advance Directives: No Advance Directives Information Provided: Yes Do you have a plan to hurt others: No Plan Current occupational status: unemployed Physical Exam ED Vital Signs: Vital Signs - 24 hr 05/18/24 08:22 05/18/24 10:36 Temperature 98 F 97.9 F Pulse Rate 59 79 Respiratory Rate 19 14 Blood Pressure 131/61 127/64 Pulse Oximetry 98 99 Oxygen Delivery Method Room Air Room Air BMI result Body Mass Index 34.0 Const General: cooperative, comfortable and no acute distress Orientation/consciousness: patient oriented x3 Limitations: no limitations [facility] Head: Yes normal to inspection, Yes normocephalic and Yes atraumatic Ears: hearing grossly normal bilaterally General nose exam: Normal external nose present Face and sinus: Yes normal facial exam Mouth: Normal oral and palatal mucosa present, oropharynx normal and moist mucous membranes Throat: Yes posterior oropharynx normal Eyes General: appearance normal, both eyes and all related structures Eyelids: Yes eyelids normal Conjunctivae: conjunctivae normal Sclerae: sclerae normal Pupils: Equal, round and reactive pupils present EOM: EOMs intact bilaterally Neck Neck: Yes normal visual inspection, Yes full ROM and Yes no lymphadenopathy Lymphatic: no lymphadenopathy noted Chest Chest palpation & inspection: normal inspection of the chest Resp Effort & Inspection: normal respiratory effort and able to speak in complete sentences Auscultation: clear to auscultation bilaterally, no crackles, no rales, no rhonchi and no wheezes Cardio Rate: regular rate Rhythm: regular rhythm Heart sounds: S1 normal heart sound present and S2 normal heart sound present GI Other: rectal examination performed with Judy Jay ED rvda master certified rv technician present. Normal rectal tone, sensation intact Inspection: Yes normal to inspection General: Yes no CVA tenderness Back/Spine/Pelvis Other: Tenderness palpation along the lumbar midline spine, and bilateral paraspinous muscles. Distal sensation circulation intact. Strength 5/5 in lower extremities. Back: no CVA tenderness Skin General skin exam: no rashes or lesions noted Trauma: no lacerations or abrasions Wounds: no wounds Neuro General: patient oriented x3 and moves all extremities Cranial nerves: Yes Equal, round and reactive pupils present Extrem Other: No calf tenderness, no peripheral edema. General: Yes normal to inspection Right upper extremity: normal to inspection Left upper extremity: normal to inspection Right lower extremity: normal to inspection Left lower extremity: normal to inspection Course Reevaluation(s) Reevaluation #1: Post void residual of 65 mL of urine left in the bladder. Lumbar spine x-ray shows lower lumbar and lumbosacral anterolisthesis and L5-S1 disc space narrowing. She is ambulatory in the department. She is able to urinate, does report having to stop midstream but able to fully empty her bladder. Time: 11:17 Reevaluation #2: Rectal examination performed, she is ambulatory in the department without any difficulty. Sensation intact, DTR 2+, given workup today, patient's symptoms likely attributed to lumbar radiculopathy. Given strict return precautions. She understands agrees with plan. She will call her PCP today to follow-up. Discharged on muscle relaxants, steroids, and anti-inflammatories. She understands and agrees with plan. Time: 12:42 Medications Administered Discontinued Medications Generic Name Dose Route Start Last Admin Trade Name Freq PRN Reason Stop Dose Admin Ketorolac Tromethamine 30 mg 05/18/24 09:26 05/18/24 09:45 Ketorolac Tromethamine 30 Mg/Ml Vial IVPUSH 08/13/24 09:27 30 mg ONCE ONE Administration Medical Decision Making Medical Decision Making [facility] Narrative: This is a 59-year-old female, with a history of osteoarthritis of bilateral knees, who presents emergency department with complaints of back pain. On arrival, vital signs within normal limits. She is alert and oriented x4. Patient with tenderness palpation along her lumbar spine and bilateral paraspinous muscles. She does endorse some urinary symptoms including having to void, stopping midstream, and continuing to void. She has no dysuria, hematuria. Patient with 5/5 lower extremity strength, distal sensation circulation intact. She has no saddle anesthesia. Given urinary complaint, will obtain UA, as well as postvoid bladder scan. Will medicate with Toradol, and x-rays of the lumbar spine was also ordered. Differential Diagnosis Differential Diagnoses: The differential diagnosis associated with the presentation includes Lumbar radiculopathy, disc herniation, lumbar strain, sprain, spasm, cauda equina syndrome-unlikely Lab Data [facility] Lab Attestation statement: I reviewed the patient's lab results. Labs: Lab Results 05/18/24 Range/Units 10:51 Urine Color Yellow Urine Appearance Clear Urine pH 7.5 (5.0-9.0) Ur Specific [place] 1.010 (1.005-1.025) Urine Protein Negative (Neg-Trace) mg/dL Urine Glucose (UA) Negative (Negative) mg/dL Urine Ketones Negative (Negative) mg/dL Urine Blood Negative (Negative) Urine Nitrite Negative (Negative) Ur Leukocyte Esterase Negative (Negative) Radiology Impression Discussion of test interpretation with radiology: I have reviewed the radiologist's reading. External Record Review External record reviewed: Inpatient record, Office record, Outpatient record, Prior outpatient labs, Prior outpatient radiology, Primary care record and Outside ED record Discharge Plan Discharge Clinical Impression: Acute left lumbar radiculopathy Patient Disposition: Home, Self-Care Instructions: Lumbar Radiculopathy (ED) Additional Instructions: You were seen in the emergency department due to low back pain and bilateral lower extremity pain. Your urine does not appear to be infected. You do have anterolisthesis and disc space narrowing. Please take prescribed medication as directed. Prednisone is a steroid on medication which will help reduce inflammation. Flexeril as a muscle relaxants, this can cause drowsiness, do not drink alcohol or drive while taking this medication. You may take ibuprofen as needed for pain. Drink plenty of fluids get plenty of rest. Follow-up with your primary care physician regarding this visit. If any new or worsening symptoms occur including but not limited to severe back pain, chest pain, shortness of breath, numbness into your groin, weakness in your legs, please return for re-evaluation. Prescriptions: New cyclobenzaprine 10 mg tablet 10 mg PO TID PRN (Reason: muscle spasm) Qty: 10 0RF prednisone 20 mg tablet 40 mg PO DAILY 5 Days Qty: 10 0RF ibuprofen 400 mg tablet 400 mg PO Q6H PRN (Reason: pain) Qty: 30 0RF lidocaine [Lidoderm] 5 % adhesive patch,medicated 1 patch topical DAILY Qty: 30 0RF Rx Instructions: leave on most painful area for up to 12 hrs No Action diclofenac sodium 1 % gel 1 ea topical BID clotrimazole 1 % cream 1 appl topical DAILY meloxicam 15 mg tablet 15 mg PO DAILY ursodiol 500 mg tablet 500 mg PO BID emtricitabine-tenofovir (TDF) 200-300 mg tablet 1 tab PO DAILY sertraline 100 mg tablet 100 mg PO DAILY cetirizine 10 mg tablet 10 mg PO DAILY Print Language: Northern Irish
[2024-05-18] MEDS: Ketorolac Tromethamine 30 MG/ML VIAL IVPUSH (09:45)
--- NOTE | 2024-05-18 09:47 | PC.NURSE ---
pt medicated for 7/10 leg/back pain per order
[2024-05-18 10:36] VITALS: BP 127/64; PULSE 79; RESP 14; TEMP 36.6; O2SAT 99
--- NOTE | 2024-05-18 10:57 | PC.NURSE ---
urine obtained, bs performed
[2024-05-18 11:15] LABS: Appearance Urine Clear; Color Urine Yellow; Glucose Urine UA Negative (Negative); Leukocyte Esterase Urine Negative (Negative); Nitrite Urine Negative (Negative); PH 7.5 (5.0-9.0); Urine Blood Negative (Negative); Urine Ketones Negative (Negative); Urine Protein Negative (Neg-Trace)
[2024-05-18 12:53] VITALS: BP 127/64; PULSE 79; RESP 14; TEMP 36.6; O2SAT 99
== END 2024-05-18 12:53 | disposition home or self-care (01) ==
PROVIDERS: Physician Assistant Medical; Emergency Provider Emergency Medicine; PCP Internal Medicine
DX: M54.16 Radiculopathy, lumbar region (principal); M54.50 Low back pain, unspecified
CPT/HCPCS: 72100; 81003; 96374; 99283; 99284; J1885

== ENCOUNTER 2024-05-25 | Outpatient (REF) | payer OTHER, SELFPAY ==
--- NOTE | ~2024-05-25 | XR_ITS ---
EXAMINATION: XR KNEE, LEFT XR KNEE, RIGHT XR KNEE AP STANDING CLINICAL INFORMATION: PA and COMPARISON: Prior radiographs, most recently 12/31/2018. TECHNIQUE: Lateral and axial views of the left knee are submitted. Lateral and axial views of the right knee are submitted. AP bilateral standing view of the knees was obtained. FINDINGS: Bony alignment and mineralization are normal. There is mild narrowing of the medial and patellofemoral joint space compartments of the right knee, with peripheral osteophyte formation. The lateral joint space compartment is well-maintained. There is mild narrowing of the medial and patellofemoral joint space compartments of the left knee, with peripheral osteophyte formation. The left lateral joint space compartment is well-maintained. There are small loose bodies seen within the posterior left joint space. No fracture, dislocation, or joint effusion is seen. No foreign body is seen. XR/XR knee RT 3V IMPRESSION: 1. There is mild osteoarthritic change of the medial and patellofemoral joint space compartments of the right knee. 2. There is mild osteoarthritic change of the medial and patellofemoral joint space compartments of the left knee. 3. No fracture, dislocation or left knee joint effusion is seen. 4. There are small loose bodies within the posterior left joint space. Electronically signed by: Elias Hunt MD 06/17/2024 10:32 PM EDT
--- NOTE | ~2024-05-25 | XR_ITS ---
EXAMINATION: XR KNEE, LEFT XR KNEE, RIGHT XR KNEE AP STANDING CLINICAL INFORMATION: PA and COMPARISON: Prior radiographs, most recently 12/31/2018. TECHNIQUE: Lateral and axial views of the left knee are submitted. Lateral and axial views of the right knee are submitted. AP bilateral standing view of the knees was obtained. FINDINGS: Bony alignment and mineralization are normal. There is mild narrowing of the medial and patellofemoral joint space compartments of the right knee, with peripheral osteophyte formation. The lateral joint space compartment is well-maintained. There is mild narrowing of the medial and patellofemoral joint space compartments of the left knee, with peripheral osteophyte formation. The left lateral joint space compartment is well-maintained. There are small loose bodies seen within the posterior left joint space. No fracture, dislocation, or joint effusion is seen. No foreign body is seen. XR/XR knee LT 3V IMPRESSION: 1. There is mild osteoarthritic change of the medial and patellofemoral joint space compartments of the right knee. 2. There is mild osteoarthritic change of the medial and patellofemoral joint space compartments of the left knee. 3. No fracture, dislocation or left knee joint effusion is seen. 4. There are small loose bodies within the posterior left joint space. Electronically signed by: Elias Hunt MD 06/17/2024 10:32 PM EDT
== END 2024-05-25 00:01 | disposition home or self-care (01) ==
LOC: HO.HOSX
PROVIDERS: Visit Provider Physician Assistant
DX: M25.562 Pain in left knee (principal); M25.561 Pain in right knee
CPT/HCPCS: 73562

== ENCOUNTER 2024-05-25 13:54 | Outpatient (AMB) | payer OTHER, SELFPAY ==
[2024-05-25 14:11] VITALS: BMI 34.0
--- NOTE | 2024-05-25 14:11 | A.OFFVIS_ITS ---
Vital Signs 05/25/24 14:11 Height 5 ft 1 in Weight 180 lb BMI 34.0 Intake Visit Reasons: OV- B/L knee pain Intake Note: Carissa a 59 year old female who presents today for a new patient evaluation of bilateral knee pain. Patient reports her pain has been present for about 3 weeks, Denies injury. She has intermittent pain located at the anterior aspect of knee. NO relief with topical cream and very little relief with Tylenol and motrin. She was prescribed prednisone by ER and felt this provided her with some relief. No previous tx. Allergies No Known Allergies [No Known Allergies*] Allergy (Verified 05/25/24 16:16) HPI HPI OV- B/L knee pain: Details: 59-year-old female, who is Togolese speaking, presents in the office today, as a new patient, for an evaluation of bilateral knee pain. The patient presented to the ED on 05/18/24 with a complaint of back pain radiating down her bilateral lower extremities. She was prescribed cyclobenzaprine 10 mg PO TID PRN, prednisone 40 mg PO daily, ibuprofen 400 mg PO Q6H, and lidocaine patches to be applied once daily. ? ? While in the office today, the patient reports her pain has been present for three weeks. She denies any injury. She confirms the use of topical creams with no relief. She has also tried Tylenol, Motrin and prednisone with mild relief. She reports her pain is intermittent and along the anterior aspect of the bilateral knees. ? [facility] Medical History (Updated 05/25/24 @ 14:44 by Sarah Stover PA-C) Family history of HIV Hx of obesity Hx of mixed hyperlipidemia History of fatty infiltration of liver History of elevated antinuclear antibody (LUCÍA) Surgical History History of liver biopsy H/O colonoscopy Social History Household Members: Spouse and None Household Members Other:: daughter Alcohol intake: never Patient Tobacco Use Status: Never used Tobacco Second Hand Smoke Exposure: No Current occupational status: unemployed Review of Systems Const All systems reviewed & are unremarkable except as noted in HPI and below Physical Exam Vital Signs: BMI result Body Mass Index 34.0 Const General: cooperative, healthy appearing and no acute distress Resp Effort & Inspection: normal respiratory effort and able to speak in complete sentences Cardio Rate: regular rate Peripheral pulses: Peripheral pulses 2+ throughout GI Palpation (GI): Soft to palpation Skin Lesions: no lesions Rashes: no rashes Extrem Other: Bilateral knees: Normal to inspection. No ecchymosis, erythema, or joint effusion. No tenderness to palpation along the medial or lateral joint lines. Full knee extension and flexion. Crepitus felt with ROM. NVI.?? Assessment & Plan Assessment & Plan (1) Lumbar radiculopathy: Code(s): M54.16 - Radiculopathy, lumbar region Category: Medical Plan Ms. Winslow is a 59-year-old female, who is Togolese speaking, presents in the office today, as a new patient, for an evaluation of bilateral knee pain. The patient presented to the ED on 05/18/24 with a complaint of back pain radiating down her bilateral lower extremities. She was prescribed cyclobenzaprine 10 mg PO TID PRN, prednisone 40 mg PO daily, ibuprofen 400 mg PO Q6H, and lidocaine patches to be applied once daily. ? ? While in the office today, the patient reports her pain has been present for three weeks. She denies any injury. She confirms the use of topical creams with no relief. She has also tried Tylenol, Motrin and prednisone with mild relief. She reports her pain is intermittent and along the anterior aspect of the bilateral knees.? ? The patient reports her symptoms back three weeks ago with pain radiating down her bilateral lower [id number] accompanied by numbness and tingling. A referral was placed for the patient to be further evaluated of her lower back by Physiatry. In the meantime, I have placed a referral to physical therapy to begin while she is waiting to be evaluated. Follow-up will be PRN, or sooner if needed. ? Orders: Orders XR knee RT 3V Today M25.569 - Pain in unspecified knee PT Evaluation and Treatment Today M54.16 - Radiculopathy, lumbar region Patient Instructions: Scribed by Savannah Rivera manager medical affairs, for Sarah Stover PA-C on 05/25/2024 at 1:57 pm, EST.? Coding Level of Care Code New Pt Level 3 (49719) Diagnoses Lumbar radiculopathy M54.16
== END 2024-05-25 14:41 | disposition home or self-care (01) ==
PROVIDERS: PCP Internal Medicine; Visit Provider Physician Assistant
DX: M54.16 Radiculopathy, lumbar region (principal)
CPT/HCPCS: 99203

== ENCOUNTER → 2024-05-25 13:54 | Outpatient (BNVA) | payer OTHER, SELFPAY | PROVIDERS: PCP Internal Medicine; Visit Provider Physician Assistant | DX: M54.16 Radiculopathy, lumbar region (principal) | CPT/HCPCS: 99202 ==

== ENCOUNTER 2024-07-05 13:32 | Outpatient (REF) | payer OTHER, SELFPAY ==
[2024-07-05 13:50] LABS: MANUAL DIFF FLAG NO
[2024-07-05 14:07] LABS: Basophils Absolute Auto 0.1 X10*3/uL (0.0-0.2); Basophils Percent Auto 0.9 % (0-2); Eosinophils Absolute Auto 0.2 X10*3/uL (0.0-0.4); Eosinophils Percent Auto 2.9 % (0-4); Hematocrit 35.2 % (37.0-47.0); Hemoglobin 11.6 g/dl (12.0-16.0); Imm Gran Abs Auto 0.03 X10*3/uL (0.00-0.03); Imm Gran Pct Auto 0.4 % (0.0-0.4); Lymphocytes Absolute Auto 2.1 X10*3/uL (1.2-4.9); Lymphocytes Percent Auto 26.9 % (20-40); Mean Corpuscular Hemoglobin 31.5 pg (27.0-33.0); Mean Corpuscular Volume 95.7 fL (80.0-98.0); Mean Platelet Volume 12.1 fL (9.4-12.3); Monocytes Absolute Auto 0.8 X10*3/uL (0.1-1.2); Monocytes Percent Auto 10.4 % (2-11); Neutrophils Absolute Auto 4.5 x10*3/uL (2.0-8.3); Neutrophils Percent Auto 58.5 % (45-73); Platelet Count 102 X10*3/uL (160-400); Red Blood Count 3.68 X10*6/uL (4.20-5.50); Red Cell Distribution Width 15.3 % (11.0-16.0); White Blood Count 7.6 X10*3/uL (4.8-10.8)
[2024-07-05 14:31] LABS: INTERNATIONAL NORM RATIO 1.3 (0.9-1.1); Prothrombin Time 15.6 SEC (10.9-12.4)
[2024-07-05 14:34] LABS: Alanine Aminotransferase 21 U/L (0-31); Albumin Level 3.1 g/dL (3.5-5.0); Alkaline Phosphatase 164 U/L (39-117); Aspartate Amino Transferase 45 U/L (5-31); Bilirubin Direct 0.6 mg/dL (0.0-0.5); Bilirubin Total 1.4 mg/dL (0.0-1.0); Total Protein 6.6 g/dL (6.5-8.0)
[2024-07-07 12:32] LABS: Alpha Fetoprotein 6.9 ng/mL
[2024-07-10 18:18] LABS: FIB-ALT 19 U/L (6-29); FIB-Alpha-2-Macroglobulin 282 mg/dL (106-279); FIB-Apolipoprotein A1 70 mg/dL (101-198); FIB-GGT 21 U/L (3-65); FIB-Haptoglobin 16 mg/dL (43-212); FIB-Total Bilirubin 1.3 mg/dL (0.2-1.2); Liver Fibrosis Score 0.89; Liver Fibrosis Stage F4; Nec Inflam Act Grade A0; Nec Inflam Act Score 0.16
== END 2024-07-05 13:33 | disposition home or self-care (01) ==
LOC: HO.LAB 13:32
PROVIDERS: PCP Internal Medicine; Visit Provider Internal Medicine
DX: K74.60 Unspecified cirrhosis of liver (principal); K75.81 Nonalcoholic steatohepatitis (NASH)
CPT/HCPCS: 36415; 80076; 81596; 82105; 85025; 85610

== ENCOUNTER 2024-07-26 11:04 | Outpatient (REF) | payer OTHER, SELFPAY ==
[2024-07-26 14:31] LABS: Blood Urea Nitrogen 8 mg/dL (9-16); Estimated Glomerular Filt Rate > 60
== END 2024-07-26 11:05 | disposition home or self-care (01) ==
LOC: HO.10HDL 11:04
PROVIDERS: Visit Provider Internal Medicine
DX: K74.60 Unspecified cirrhosis of liver (principal); R77.2 Abnormality of alphafetoprotein; R93.2 Abnormal findings on diagnostic imaging of liver and biliary tract
CPT/HCPCS: 36415; 82565; 84520

== ENCOUNTER 2024-07-27 11:06 | Outpatient (REF) | payer OTHER, SELFPAY ==
[2024-07-27] MEDS: gadobutroL 10 ML VIAL IVPUSH (12:08)
== END 2024-07-27 11:07 | disposition home or self-care (01) ==
LOC: HO.MRI 11:06
PROVIDERS: PCP Internal Medicine; Visit Provider Internal Medicine
DX: K74.60 Unspecified cirrhosis of liver (principal); R77.2 Abnormality of alphafetoprotein; R93.2 Abnormal findings on diagnostic imaging of liver and biliary tract
CPT/HCPCS: 74183; A9585

== ENCOUNTER → 2024-07-27 11:26 | Outpatient (BNV) | payer OTHER, SELFPAY | PROVIDERS: PCP Internal Medicine; Visit Provider Radiology Diagnostic Radiology | DX: K74.60 Unspecified cirrhosis of liver (principal) | CPT/HCPCS: 74183 ==

== ENCOUNTER 2024-12-16 09:43 | Outpatient (REF) | payer OTHER, SELFPAY ==
--- OUTSIDE RECORDS SUMMARY | 2024-12-16 11:41 | XMS_ITS | Encounter Summary ---
Author Organization [employer] Address [address] [place] [address] [address] [place] [address] Care Team Providers Care Crack Off Person Name Role Phone Rey Soriano MD Primary Care Provide r Encounter Details Date Type Department Care Team (Late st Contact Info) Description 02/06/2023 Abstract [facility] MEDICINE [address] [place], [place] [phone] Rey Soriano MD [address] [place], [place] [phone] Social History Tobacco Use Types Packs/Day Years Used Date Smoking Tobacco: Never Smokeless Tobacco: Never PHQ-2 Answer Date Recorded Patient Health Questionnaire-2 Score 0 10/01/2022 Depression Answer Date Recorded Patient Health Questionnaire-2 Score 0 10/01/2022 Comments Unknown Sex and Gender Information Value Date Recorded Sex Assigned at Female 08/05/2022 10:17 AM EDT Legal Sex Female 10:17 AM EDT Gender Identity Female 08/05/2022 10:17 AM EDT Sexual Orientation Straight 08/05/2022 10 :17 AM EDT documented as of this encounter Plan of Treatment Not on file documented as of this encounter Procedures Procedure Name Priority Date/Time Associated Diagnosis Comments COLONOSCOPY Routine 02/13/2015 8:32 AM EDT documented in this encounter Results * Colonoscopy (02/13/2015 8:32 AM EDT) Colonoscopy Normal Normal Narrative Alpa Concepcion - 02/13/2015 8:32 AM EDT Recommended 10 year follow up per pcp note hyperplastic polyp us Historical Provider HEALTH MAINTENANCE Edited Result - Final documented in this encounter Visit Diagnoses Not on filedocumented in this encounter Care Teams Crack Off Person Relationship Specialty Start Date End Date Rey Soriano MD [address] [place] [id number] PCP - General Internal Medicine 07/04/14 documented as of this encounter
--- OUTSIDE RECORDS SUMMARY | 2024-12-16 11:41 | XMS_ITS | Encounter Summary ---
Author Organization [facility] Address [address] [place] [address] [address] [place] [address] Care Team Providers Care Community Service Aide Name Role Phone Rey Soriano MD Primary Care Provide r Encounter Details Date Type Department Care Team (Late st Contact Info) Description 09/23/2022 Telephone [facility] MEDICINE [address] [place], [place] [phone] Rey Soriano MD [address] [place], [place] [phone] Social History Tobacco Use Types Packs/Day Years Used Date Smoking Tobacco: Never Assessed Comments Unknown Sex and Gender Information Value Date Recorded Sex Assigned at Female 08/05/2022 10:17 AM EDT Legal Sex Female 10:17 AM EDT Gender Identity Female 08/05/2022 10:17 AM EDT Sexual Orientation Straight 08/05/2022 10 :17 AM EDT COVID-19 Exposure Response Date Recorded In the last 10 days, have yo u been in contact with someone who was confirmed or suspected to have Coronavirus/COVID-19? No / Unsure 09/12/2022 10:19 AM EST documented as of this encounter Plan of Treatment Not on file documented as of this encounter Visit Diagnoses Not on filedocumented in this encounter Care Teams Community Service Aide Relationship Specialty Start Date End Date Rey Soriano MD [address] [place], [place] [phone] PCP - General Internal Medicine 07/04/14 documented as of this encounter
--- OUTSIDE RECORDS SUMMARY | 2024-12-16 11:41 | XMS_ITS | Patient Health Record ---
Author Organization [facility] Address [address] [place] [address] Care Team Providers Care Licensed Prosthetist Name Role Phone Ludy Ellis MD, Rey Primary Care Provide r Unavailable Raj Manuel [phone] Allergies No Known Allergies Results Component Value Reference Range Notes Prothrombin Time INR Reviewed date:07/05/2024 06:13:08 PM Interpretation: Performing Lab:[facility], [address] [place] [phone] Notes/Report: Prothrombin Time 15.6 10.9-12.4 SEC INTERNATIONAL NORM RATIO 1.3 0.9-1.1 INTERNATIONAL NORMALIZED RATIO (INR) REFERENCE RANGES Reference Range For patients not on anticoagulant therapy: 0.9 - 1.1 INR ranges for oral anticoagulant therapy: For prevention and treatment of venous thrombosis and pulmonary embolism: 2.0 - 3.0 For acute myocardial infarction with aspirin therapy: 2.0 - 3.0 For acute myocardial infarction without aspirin therapy: 3.0 - 4.0 For patients with mechanical prosthetic heart valves: 2.5 - 3.5 Liver Fibrosis Pnl Reviewed date:07/11/2024 02:14:42 PM Interpretation: Performing Lab:[facility], [address] [place] [phone] Notes/Report: Liver Fibrosis Score 0.89 Liver Fibrosis Stage F4 Liver Fibrosis Interpretation SEE NOTE severe fibrosis Fibro Test Score (f) Metavir Score f>=0 and f<=0.21 : F0 (no fibrosis) f>0.21 and f<=0.27 : F0-F1 (no fibrosis) f>0.27 and f<=0.31 : F1 (minimal fibrosis) f>0.31 and f<=0.48 : F1-F2 (minimal fibrosis) f>0.48 and f<=0.58 : F2 (moderate fibrosis) f>0.58 and f<=0.72 : F3 (advanced fibrosis) f>0.72 and f<=0.74 : F3-F4 (advanced fibrosis) f>0.74 and f<=1.00 : F4 (severe fibrosis) Nec Inflam Act Score 0.16 Nec Inflam Act Grade A0 Nec Inflam Act Interpretation SEE NOTE no activity ActiTest Score (a) Metavir Score a>=0 and a<=0.17 : A0 (no activity) a>0.17 and a<=0.29 : A0-A1 (no activity) a>0.29 and a<=0.36 : A1 (minimal activity) a>0.36 and a<=0.52 : A1-A2 (minimal activity) a>0.52 and a<=0.60 : A2 (significant activity) a>0.60 and a<=0.62 : A2-A3 (significant activity) a>0.62 and a<=1.00 : A3 (severe activity) EIA-Qeeng-7-Macroglobuli n 282 106-279 mg/dL FIB-Haptoglobin 16 43-212 mg/dL FIB-Apolipoprotein A1 70 101-198 mg/dL FIB-Total Bilirubin 1.3 0.2-1.2 mg/dL FIB-GGT 21 3-65 U/L FIB-ALT 19 6-29 U/L Reference ID [id number] Footnote SEE NOTE The reliability of results is dependent on compliance with the preanalytical and analytical conditions recommended by [employer]. The tests have to be deferred for: acute hemolysis, acute hepatitis, acute inflammation, extra hepatic cholestasis. The advice of a specialist should be sought for interpretation in chronic hemolysis and Gilbert's syndrome. The test interpretation is not validated in liver transplant patients. Isolated extreme values of one of the components should lead to caution in interpreting the results. In case of discordance between a biopsy result and a test, it is recommended to seek the advice of a specialist. The causes of these discordances could be due to a flaw of the test or to a flaw in the biopsy: i.e. a liver biopsy has a 33% variability rate for one fibrosis stage. FibroTest is interpretable for chronic hepatitis B and C, alcoholic and non alcoholic steatosis. ActiTest is interpretable for chronic hepatitis B and C. The performance characteristics have been determined by [employer] [facility]. It has not been cleared or approved by the U.S. Food and Drug Administration. Performance characteristics refer to the analytical performance of the test. [employer], the associated logo, [employer] and all associated [employer] oden are the registered trademarks of [employer]. All third republican oden - (R) and (TM) - are the property of their respective owners. (C) [id number] [employer]. All rights reserved. THIS TEST WAS PERFORMED AT: [email or web address] [place] [address] [place] [address] VERONIKA DELONG MD,PHD,LAURA MR abdomen wo/w con Reviewed date:03/01/2024 11:38:03 PM Interpretation: Performing Lab: Notes/Report: [address] [address] Magnetic Resonance Report Signed Patient: Carissa Killian MR#: [id number] : 1965 Acct:[id number] Age/Sex: 58 / F ADM Date: 01/15/24 Loc: .MRI Attending Dr: Raj Manuel MD Ordering Physician: Raj Manuel Date of Service: 01/15/24 Procedure(s): MR abdomen wo/w con Accession Number(s): [id number] cc: Rey Bess MD; Raj Manuel EXAMINATION: MR ABDOMEN WITHOUT AND WITH CONTRAST CLINICAL INFORMATION: Fatty liver, stage III hepatic fibrosis by ultrasound guided liver biopsy on 12/19/2021, abnormal liver function test COMPARISON: MRI abdomen on 05/02/2023 TECHNIQUE: Examination was performed in a high field strength MRI scanner. Multiplanar multiphasic imaging of the abdomen was performed without IV contrast enhancement. Multiphasic Axial T1 weighted fat suppressed images of the upper abdomen were obtained after IV injection of 8 mL Gadavist. Coronal T1 weighted fat-suppressed images of the abdomen were obtained following the dynamic axial series. FINDINGS: LIVER: The liver shows lobulated contour. Contrast enhanced dynamic images are markedly limited by patient motion blurring. An observation with diffuse arterial phase hyperenhancement is seen at posterior lateral corner of left hepatic lobe segment IVb measuring 1.2 x 1.6 cm in size (previously 1.1 x 1.7 cm), remains T1 hyperintense on portal venous phase, mostly T1 isointense on more delayed postcontrast images. The calculated hepatic fat percentage is 5.0%, compatible with mild hepatic steatosis. HEPATOBILIARY: Gallbladder is normal without filling defects. Common bile duct is not dilated. PANCREAS: No focal pancreatic lesion with abnormal signal can be seen. SPLEEN: Spleen is normal in size without focal lesion. ADRENAL: Bilateral adrenal glands are normal in shape and size. KIDNEYS: Bilateral kidneys are normal in size with a stable T2 hyperintense nonenhancing simple cyst measuring 0.7 cm in diameter at posterior medial superior right renal cortex, for which no follow up imaging is recommended. L5-S1 degenerative lumbar disc disease is present. MR/MR abdomen wo/w con IMPRESSION: 1. Unchanged hepatic cirrhosis and Mild hepatic steatosis. 2. Stable 1.2 x 1.6 cm arterial phase hyperenhancing observation at posterior lateral corner of left hepatic lobe segment IVb, remains T1 hyperintense on portal venous phase, mostly T1 isointense on more delayed postcontrast images, compatible with stable LI-RADS 3 observation. 3. Stable 0.7 cm simple cyst at posterior medial superior right renal cortex, for which no follow up imaging is recommended. Dictated By: Luz Marina Macias Signed By: <Electronically signed by Luz Marina Macias in OV> 01/27/24 1532 DD/ 1017 TD/TT: [place]: [address] [address] Magnetic Resonance Report Signed Patient: Susan Killian MR#: [id number] : 1965 Acct:[id number] Age/Sex: 58 / F ADM Date: 01/15/24 Loc: HO.MRI Attending Dr: Raj Manuel MD Ordering Physician: Raj Manuel Date of Service: 01/15/24 Procedure(s): MR abdomen wo/w con Accession Number(s): [id number] cc: Rey Bess MD; Raj Manuel EXAMINATION: MR ABDOMEN WITHOUT A ND WITH CONTRAST CLINICAL INFORMATION: Fatty liver, stage I II hepatic fibrosis by ultrasound guided liver biopsy on 12/19/2021 , abnormal liver function test COMPARISON: MRI abdomen on 05/02/2023 TECHNIQUE: Examination was performed in a high field strength MRI scanner. Multiplanar multipha sic imaging of the abdomen was performed without IV contrast enhancement. Multiphasic Axial T1 weighted fat suppressed images of the upper abdomen were obtaine d after IV injection of 8 mL Gadavist. Coronal T1 weighted fat-suppres sed images of the abdomen were obtained following the dynamic axial series. FINDINGS: LIVER: The liver itzel ws lobulated contour. Contrast enhanced dynamic images are markedly limited by patient motion blurring. An observation with diffuse arterial phase hyperenhancement is seen at posterior lateral corner of left hepatic lobe segment IVb measuring 1.2 x 1.6 cm in size (previously 1.1 x 1.7 cm), remains T1 hyperintense on portal venous phase, mostly T1 isointense on more delayed postcontrast images. The calculated hepat ic fat percentage is 5.0%, compatible with mild hepatic steatosis. HEPATOBILIARY: Gallbladder is normal without filling defects. Common bile duct is not dilated. PANCREAS: No focal pancreatic lesion with abnormal signal can be seen. SPLEEN: Spleen is normal in size without focal lesion. ADRENAL: Bilateral adrenal glands are normal in shape and size. KIDNEYS: Bilateral kidneys are normal in size with a stable T2 hyperintense nonenhancing simple cyst measuring 0.7 cm in diameter at posterior medial superior right renal cortex, for which no follow up imaging is recommended. L5-S1 degenerative lumbar disc disease is present. MR/MR abdomen wo/w con IMPRESSION: 1. Unchanged hepatic cirrhosis and Mild hepatic steatosis. 2. Stable 1.2 x 1.6 cm arterial phase hyperenhancing observation at posterior lateral corner of left hepatic lobe segment IVb, remains T1 hyperintense on port al venous phase, mostly T1 isointense on more delayed postcontrast images, compatible with stable LI-RADS 3 observation. 3. Stable 0.7 cm sim ple cyst at posterior medial superior right renal cortex, for which no follow up imaging is recommended. Dictated By: Luz Marina Macias Signed By: <Electronically signed by Luz Marina Macias in OV> 01/27/24 1532 DD/ 1017 TD/TT: [place]: Complete Blood Count Auto Di ff Reviewed date:07/05/2024 06:12:47 PM Interpretation: Performing Lab:[address] [address] Notes/Report: White Blood Count 7.6 4.8-10.8 X10*3/uL Red Blood Count 3.68 4.20-5.50 X10*6/uL Hemoglobin 11.6 12.0-16.0 g/dl Hematocrit 35.2 37.0-47.0 % Mean Corpuscular Volume 95.7 80.0-98.0 fL Mean Corpuscular Hemoglobin 31.5 27.0-33.0 pg Mean Corpuscular HGB Conc 33.0 31.0-35.0 g/dl Red Cell Distribution Width 15.3 11.0-16.0 % Platelet Count 102 160-400 X10*3/uL Mean Platelet Volume 12.1 9.4-12.3 fL Neutrophils Percent Auto 58.5 45-73 % Imm Gran Pct Auto 0.4 0.0-0.4 % Lymphocytes Percent Auto 26.9 20-40 % Monocytes Percent Auto 10.4 2-11 % Eosinophils Percent Auto 2.9 0-4 % Basophils Percent Auto 0.9 0-2 % NRBC Pct Auto 0.0 0.0-0.2 /100WBC Neutrophils Absolute Auto 4.5 2.0-8.3 x10*3/uL Imm Gran Abs Auto 0.03 0.00-0.03 X10*3/uL Lymphocytes Absolute Auto 2.1 1.2-4.9 X10*3/uL Monocytes Absolute Auto 0.8 0.1-1.2 X10*3/uL Eosinophils Absolute Auto 0.2 0.0-0.4 X10*3/uL Basophils Absolute Auto 0.1 0.0-0.2 X10*3/uL NRBC Abs Auto 0.000 0.0-0.012 X10*3/uL Liver Panel Reviewed date:07/05/2024 06:13:00 PM Interpretation: Performing Lab:[facility], [address] [place] [phone] Notes/Report: Bilirubin Total 1.4 0.0-1.0 mg/dL Bilirubin Direct 0.6 0.0-0.5 mg/dL Slight Hem olysis Aspartate Amino Transferase 45 5-31 U/L Slight Hemolysis Alanine Aminotransferase 21 0-31 U/L Total Protein 6.6 6.5-8.0 g/dL Albumin Level 3.1 3.5-5.0 g/dL Alkaline Phosphatase 164 39-117 U/L Alpha Fetoprotein Reviewed date:07/19/2024 01:06:12 PM Interpretation: Performing Lab:[facility], [address] [place] [phone] Notes/Report: Alpha Fetoprotein 6.9 Reference Range: <6.1 The use of AFP as a tumor marker in females is not recommended. This test was performed using the [employer] [place] chemiluminescent method. Values obtained from different assay methods cannot be used interchangeably. AFP levels, regardless of value, should not be interpreted as absolute evidence of the presence or absence of disease. THIS TEST WAS PERFORMED AT: [facility] [address] [place] [phone] RACHAEL LAW MD Blood Urea Nitrogen Reviewed date:07/26/2024 11:02:34 PM Interpretation: Performing Lab:[facility], [address] [place] [phone] Notes/Report: Blood Urea Nitrogen 8 9-16 mg/dL Creatinine Reviewed date:07/26/2024 11:02:43 PM Interpretation: Performing Lab:[address] [address] Notes/Report: Creatinine 0.75 0.5-1.4 mg/dL Estimated Glomerular Filt Rate > 60 NOTE: For -[place] individuals, multiply the result by 1.210. Chronic Kidney Disease: Estimated GFR < 60 mL/min/1.73m2 Severe Kidney Disease: Estimated GFR < 15 mL/min/1.73m2 MR abdomen wo/w con Reviewed date:09/26/2024 01:24:09 PM Interpretation: Performing Lab: Notes/Report: [address] [place] [address] Magnetic Resonance Report Signed Patient: Carissa Killian MR#: [id number] : 1965 Acct:[id number] Age/Sex: 59 / F ADM Date: 07/27/24 Loc: HO.MRI Attending Dr: Raj Manuel MD Ordering Physician: Raj Manuel MD Date of Service: 07/27/24 Procedure(s): MR abdomen wo/w con Accession Number(s): [id number] cc: Rey Bess MD; Raj Manuel MD EXAMINATION: MR ABDOMEN WITHOUT AND WITH CONTRAST CLINICAL INFORMATION: Cirrhosis. Elevated alpha feta protein. COMPARISON: MRI dated January 15, 2024. TECHNIQUE: MR abdomen was performed without and with use of 8 mL intravenous Gadavist gadolinium contrast. Postcontrast images are performed in multiphase dynamic sequences. Imaging was performed in 3 planes. No reported immediate complications. FINDINGS: Submitted for interpretation on September 22, 2024. Limited by patient's breathing motion artifact. LIVER, GALLBLADDER, AND BILIARY TREE: Liver measures 16 cm. Nodularity. Heterogeneous signal throughout the parenchyma. No arterial phase enhancing lesion. Heterogeneous hypointense T1 and portal venous phase enhancement adjacent to the gallbladder fossa segment IVb. Nonspecific. Gallbladder is contracted with questionable biliary sludge. There is an edematous gallbladder wall likely related to hepatocellular disease. No intrahepatic or extrahepatic biliary ductal dilatation. PANCREAS: No focal mass. No peripancreatic fluid collection. No main pancreatic ductal dilatation. SPLEEN: 12 cm. No focal mass. ADRENAL GLANDS: No nodular lesions. KIDNEYS AND URETERS: No renal mass. No hydronephrosis. 0.7 cm exophytic fluid signal characteristic lesions in the posterior midportion upper pole junction right kidney. GASTROINTESTINAL TRACT: Abundant stool. No intestinal dilatation. ABDOMINAL WALL: Small fat-containing umbilical hernia. LYMPH NODES: No lymphadenopathy. VASCULAR: No aneurysm or dissection abdominal aorta. Splenorenal shunting, tortuous and prominent. Main portal vein, hepatic veins and intrahepatic portions of the IVC are patent. OSSEOUS STRUCTURES: Grade 1 anterolisthesis L4-5 and L5-S1. MR/MR abdomen wo/w con IMPRESSION: No hepatocellular carcinoma. Cirrhosis without gross ascites. Overall stable. Electronically signed by: Andrea tSeve MD 09/22/2024 03:49 PM EST Dictated By: Andrea Thomson MD Signed By: <Electronically signed by Andrea Singer MD in OV> 09/22/24 1549 DD/ 1126 TD/TT: 07/27/24 1146 [place]: [address] [address] Magnetic Resonance Report Signed Patient: Susan Killian MR#: [id number] : 1965 Acct:[id number] Age/Sex: 59 / F ADM Date: 07/27/24 Loc: HO.MRI Attending Dr: Raj Manuel MD Ordering Physician: Raj Manuel MD Date of Service: 07/27/24 Procedure(s): MR abdomen wo/w con Accession Number(s): [id number] cc: Rey Bess MD; Raj Manuel MD EXAMINATION: MR ABDOMEN WITHOUT A ND WITH CONTRAST CLINICAL INFORMATION: Cirrhosis. Elevated alpha feta protein. COMPARISON: MRI dated January 15, 2024. TECHNIQUE: MR abdomen was performed without and with use of 8 mL intravenous Gadavist gadolinium contrast. Postcontrast images are performed in multiphase dynamic sequences. Imaging was performed in 3 planes. No reported immediate complications. FINDINGS: Submitted for interpretation on September 22, 2024. Limited by patient's breathing motion artifact. LIVER, GALLBLADDER, AND BILIARY TREE: Liver measures 16 cm . Nodularity. Heterogeneous signal throughout the parenchyma. No arter ial phase enhancing lesion. Heterogeneous hypointense T1 and portal venous phase enhancement adjacent to the gallbladder fossa segment IVb. Nonspecific. Gallbladder is contracted with questionable biliary sludge. There is an edematous gallbladde r wall likely related to hepatocellular disease. No intrahepatic or extrahepatic biliary ductal dilatation. PANCREAS: No focal mass. No peripancreatic fluid collection. No main pancreatic ductal dilatation. SPLEEN: 12 cm. No fo surya mass. ADRENAL GLANDS: No nodular lesions. KIDNEYS AND URETERS: No renal mass. No hydronephrosis. 0.7 cm exophytic fluid signal characteristic lesio ns in the posterior midportion upper pole junction right kidney. GASTROINTESTINAL TRACT: Abundant stool. No intestinal dilatation. ABDOMINAL WALL: Smal l fat-containing umbilical hernia. LYMPH NODES: No lymphadenopathy. VASCULAR: No aneurys m or dissection abdominal aorta. Splenorenal shunting , tortuous and prominent. Main portal vein, hepatic veins and intrahepat ic portions of the IVC are patent. OSSEOUS STRUCTURES: Grade 1 anterolisthesis L4-5 and L5-S1. MR/MR abdomen wo/w con IMPRESSION: No hepatocellular carcinoma. Cirrhosis without gr oss ascites. Overall stable. Electronically abigail d by: Andrea Steve MD 09/22/2024 03:49 PM EST Dictated By: Andrea Ballard MD Signed By: <Electronically signed by Andrea Singer MD in OV> 09/22/24 1549 DD/ 1126 TD/TT: 07/27/24 1146 [place]: Reason For Referral No Information Medications Medication SIG (Take, Route, Frequency, Duration) Notes Start Date End Date Status Omeprazole 40 MG 1 Orally Once a day for 30 day(s) 12/09/2023 Active Ursodiol 500 MG 2 tablets QAM and 1 tablet Q PM Orally BID 12/30/2021 Active Emtricitabine-Tenofo vir DF 200-300 MG Oral for 30 Active Ursodiol 500 MG 2 Orally Twice a day for 30 day(s) 12/22/2022 Not-Taking Truvada 200-300 MG 1 tablet Orally Once a day for 30 day(s) For her 's HIV Active Ursodiol 500 MG 2 Orally Twice a day for 30 day(s) 08/20/2023 Not-Taking Immunizations Vaccine Route Administration Date Status Comme nts Influenza Unknown 07/18/2021 Administered Influenza Unknown 07/09/2022 Administered Social History Tobacco Use: Social History Observation Description Date Details (start date - stop date) Never Smoker NA - NA Tobacco Use/Smoking Question Answer Notes Patient is a nonsmoker Alcohol Screen Question Answer Notes Did you have a drink containing alcohol in the p ast year? No Points 0 Interpretation Negative Section Notes: No significant alcohol, nons moker No significant alcohol, nons moker No significant alcohol, nons moker No significant alcohol, nons moker No significant alcohol, nons moker Problems Problem Type SNOMED Code ICD Code Onset Dates Problem Status W/U Status Risk Notes Problem Colon cancer screening (009067464) Colon cancer screening (Z12.11) Active confirmed Problem Epigastric pain (69608500) Epigastric abdominal pain (R10.13) Active confirmed Problem Diverticular disease of colon (186711310) Diverticulosis of large intestine without perforation or abscess without bleeding (K57.30) Active confirmed Problem GARVEY - Nonalcoholic steatohepatitis (311906578) Nonalcoholic steatohepatitis (GARVEY) (K75.81) Active confirmed Problem Gastroesophageal reflux disease (955975370) Gastroesophageal reflux disease (K21.9) Active confirmed Problem 675572589 Elevated liver function tests (R79.89) Active confirmed Problem 972595775 Fatty liver (K76.0) Active confirmed Problem Cirrhotic (578742484) Cirrhosis (K74.60) Active confirmed Problem Serum alpha-fetoprotein level elevated (437142926) 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) Active confirmed Problem Abnormal findings diagnostic imaging of liver and biliary tract (272269503) Abnormal MRI, liver (R93.2) Active confirmed Problem 334752189 LUCÍA positive (R76.8) Active confirmed Problem Portal fibrosis without cirrhosis (629519041) Liver fibrosis (K74.00) Active confirmed Vital Signs Blood pressure diastolic 00 mm Hg 07/06/2024 Height 64 in 07/06/2024 Blood pressure systolic 00 mm Hg 07/06/2024 Weight 177 lbs 07/06/2024 BMI 30.38 kg/m2 07/06/2024 Encounters Encounter Location Date Provider Diagnosis [facility] [place] [address] [place] [phone] 03/03/2024 Raj Manuel Encounter for screen ing colonoscopy Z12.11 ; Colon polyps K63.5 ; Diverticulosis of large intestine without perforation or abscess without bleeding K57.30 ; Other hemorrhoids K64.8 ; Gastroesophageal reflux disease K21.9 ; Hiatal hernia K44.9 ; Other diseases of stomach and duodenum K31.89 ; Cirrhosis K74.60 and Abdominal pain R10.9 [facility] [address] [place] [phone] 07/06/2024 Raj Manuel Fatty liver K76.0 ; Cirrhosis K74.60 ; Elevated liver function tests R79.89 ; Gastroesophageal reflux disease K21.9 ; Colon cancer screening Z12.11 ; Elevated alpha fetoprotein R77.2 and Abnormal MRI, liver R93.2 [facility] [address] [place] [phone] 03/04/2024 Raj Manuel [facility] [address] [place] [phone] 03/10/2024 Raj Manuel [facility] [address] [place] [phone] 04/05/2024 Raj Manuel [facility] [address] [place] [phone] 06/29/2024 Raj Manuel Cirrhosis K74.60 and Nonalcoholic steatohepatitis (GARVEY) K75.81 [facility] [address] [place] [phone] 07/19/2024 Raj Manuel Assessments Encounter Date Diagnosis (ICD Code) Assessment Notes Treatment Notes Treatment Clinical Notes Section Notes 03/03/2024 Encounter for screening colonoscopy (ICD-10 - Z12.11) 03/03/2024 Colon polyps (ICD-10 - K63.5) 07/06/2024 Fatty liver (ICD-10 - K76.0) Continue the same Ursodiol Overall, Carissa appears well and her liver disease remained well compensated at the present time. We did review her GI procedures from earlier in the year and I recommended a followup colonoscopy in 5 years for further screening given the small polyps that were not removed. I did advise her to continue omeprazole for symptomatic relief of her previous abdominal pain. In regard to the underlying liver disease I did recommend that she continue the current regimen of ursodiol. The results of her pending alpha-fetoprote in level and liver fibrosis score will be checked. However, I will repeat a MRI of the liver later this year to compare to her previous exams with the solitary liver lesion to insure stability. She has lost some considerable weight intentionally and I did advise her certainly continue that as that would be very helpful to keep herself healthy both in general and in regard to the underlying liver disease. I will plan to see her again in the Spring but advised her to contact me prior to that if she has any problems or questions I can be of assistance with. Carissa was comfortable with this plan. Thank you again for allowing me to participate in Carissa's care. I shall continue to keep you advised of her progress. 07/06/2024 Cirrhosis (ICD-10 - K74.60) Overall, Carissa appears well and her liver disease remained well compensated at the present time. We did review her GI procedures from earlier in the year and I recommended a followup colonoscopy in 5 years for further screening given the small polyps that were not removed. I did advise her to continue omeprazole for symptomatic relief of her previous abdominal pain. In regard to the underlying liver disease I did recommend that she continue the current regimen of ursodiol. The results of her pending alpha-fetoprote in level and liver fibrosis score will be checked. However, I will repeat a MRI of the liver later this year to compare to her previous exams with the solitary liver lesion to insure stability. She has lost some considerable weight intentionally and I did advise her certainly continue that as that would be very helpful to keep herself healthy both in general and in regard to the underlying liver disease. I will plan to see her again in the Spring but advised her to contact me prior to that if she has any problems or questions I can be of assistance with. Carissa was comfortable with this plan. Thank you again for allowing me to participate in Carissa's care. I shall continue to keep you advised of her progress. 06/29/2024 Nonalcoholic steatohepatitis (GARVEY) (ICD-10 - K75.81) 06/29/2024 Cirrhosis (ICD-10 - K74.60) 03/03/2024 Diverticulosis of large intestine without perforation or abscess without bleeding (ICD-10 - K57.30) 07/06/2024 Elevated liver function tests (ICD-10 - R79.89) Overall, Carissa appears well and her liver disease remained well compensated at the present time. We did review her GI procedures from earlier in the year and I recommended a followup colonoscopy in 5 years for further screening given the small polyps that were not removed. I did advise her to continue omeprazole for symptomatic relief of her previous abdominal pain. In regard to the underlying liver disease I did recommend that she continue the current regimen of ursodiol. The results of her pending alpha-fetoprote in level and liver fibrosis score will be checked. However, I will repeat a MRI of the liver later this year to compare to her previous exams with the solitary liver lesion to insure stability. She has lost some considerable weight intentionally and I did advise her certainly continue that as that would be very helpful to keep herself healthy both in general and in regard to the underlying liver disease. I will plan to see her again in the Spring but advised her to contact me prior to that if she has any problems or questions I can be of assistance with. Carissa was comfortable with this plan. Thank you again for allowing me to participate in Carissa's care. I shall continue to keep you advised of her progress. 03/03/2024 Other hemorrhoids (ICD-10 - K64.8) 07/06/2024 Gastroesophageal reflux disease (ICD-10 - K21.9) Continue the omeprazole Overall, Carissa appears well and her liver disease remained well compensated at the present time. We did review her GI procedures from earlier in the year and I recommended a followup colonoscopy in 5 years for further screening given the small polyps that were not removed. I did advise her to continue omeprazole for symptomatic relief of her previous abdominal pain. In regard to the underlying liver disease I did recommend that she continue the current regimen of ursodiol. The results of her pending alpha-fetoprote in level and liver fibrosis score will be checked. However, I will repeat a MRI of the liver later this year to compare to her previous exams with the solitary liver lesion to insure stability. She has lost some considerable weight intentionally and I did advise her certainly continue that as that would be very helpful to keep herself healthy both in general and in regard to the underlying liver disease. I will plan to see her again in the Spring but advised her to contact me prior to that if she has any problems or questions I can be of assistance with. Carissa was comfortable with this plan. Thank you again for allowing me to participate in Carissa's care. I shall continue to keep you advised of her progress. 03/03/2024 Gastroesophageal reflux disease (ICD-10 - K21.9) 07/06/2024 Colon cancer screening (ICD-10 - Z12.11) Repeat colonoscopy in 2028 Overall, Carissa appears well and her liver disease remained well compensated at the present time. We did review her GI procedures from earlier in the year and I recommended a followup colonoscopy in 5 years for further screening given the small polyps that were not removed. I did advise her to continue omeprazole for symptomatic relief of her previous abdominal pain. In regard to the underlying liver disease I did recommend that she continue the current regimen of ursodiol. The results of her pending alpha-fetoprote in level and liver fibrosis score will be checked. However, I will repeat a MRI of the liver later this year to compare to her previous exams with the solitary liver lesion to insure stability. She has lost some considerable weight intentionally and I did advise her certainly continue that as that would be very helpful to keep herself healthy both in general and in regard to the underlying liver disease. I will plan to see her again in the Spring but advised her to contact me prior to that if she has any problems or questions I can be of assistance with. Carissa was comfortable with this plan. Thank you again for allowing me to participate in Carissa's care. I shall continue to keep you advised of her progress. 03/03/2024 Hiatal hernia (ICD-10 - K44.9) 07/06/2024 Elevated alpha fetoprotein (ICD-10 - R77.2) Overall, Carissa appears well and her liver disease remained well compensated at the present time. We did review her GI procedures from earlier in the year and I recommended a followup colonoscopy in 5 years for further screening given the small polyps that were not removed. I did advise her to continue omeprazole for symptomatic relief of her previous abdominal pain. In regard to the underlying liver disease I did recommend that she continue the current regimen of ursodiol. The results of her pending alpha-fetoprote in level and liver fibrosis score will be checked. However, I will repeat a MRI of the liver later this year to compare to her previous exams with the solitary liver lesion to insure stability. She has lost some considerable weight intentionally and I did advise her certainly continue that as that would be very helpful to keep herself healthy both in general and in regard to the underlying liver disease. I will plan to see her again in the Spring but advised her to contact me prior to that if she has any problems or questions I can be of assistance with. Carissa was comfortable with this plan. Thank you again for allowing me to participate in Carissa's care. I shall continue to keep you advised of her progress. 03/03/2024 Other diseases of stomach and duodenum (ICD-10 - K31.89) 07/06/2024 Abnormal MRI, liver (ICD-10 - R93.2) Overall, Carissa appears well and her liver disease remained well compensated at the present time. We did review her GI procedures from earlier in the year and I recommended a followup colonoscopy in 5 years for further screening given the small polyps that were not removed. I did advise her to continue omeprazole for symptomatic relief of her previous abdominal pain. In regard to the underlying liver disease I did recommend that she continue the current regimen of ursodiol. The results of her pending alpha-fetoprote in level and liver fibrosis score will be checked. However, I will repeat a MRI of the liver later this year to compare to her previous exams with the solitary liver lesion to insure stability. She has lost some considerable weight intentionally and I did advise her certainly continue that as that would be very helpful to keep herself healthy both in general and in regard to the underlying liver disease. I will plan to see her again in the Spring but advised her to contact me prior to that if she has any problems or questions I can be of assistance with. Carissa was comfortable with this plan. Thank you again for allowing me to participate in Carissa's care. I shall continue to keep you advised of her progress. 03/03/2024 Cirrhosis (ICD-10 - K74.60) 03/03/2024 Abdominal pain (ICD-10 - R10.9) Plan Of Treatment Pending Test Test Name Order Date BUN 07/06/2024 BUN 12/09/2023 LIVER PROFILE 10/23/2022 LIVER PROFILE 11/22/2021 LIVER PROFILE 06/29/2024 LIVER PROFILE 07/16/2022 LIVER PROFILE 12/22/2022 LIVER PROFILE 11/16/2021 LIVER PROFILE 12/30/2021 LIVER PROFILE 12/09/2023 LIVER PROFILE 07/29/2023 GGT 11/22/2021 IRON + IBC (FE) 11/16/2021 CBC w DIFF 12/09/2023 CBC w DIFF 07/29/2023 CBC w DIFF 11/16/2021 CBC w DIFF 10/23/2022 CBC w DIFF 06/29/2024 CBC w DIFF 11/22/2021 PROTHROMBIN TIME (PT, INR) 11/16/2021 PROTHROMBIN TIME (PT, INR) 11/22/2021 PARTIAL THROMBOPLASTIN TIME (PTT) 2021 [id number] (A1A) 11/16/2021 ALPHA-FETOPROTEIN,TUMOR MARKER 3 ALPHA-FETOPROTEIN,TUMOR MARKER 4 LIVER KIDNEY MICROSOMAL AB (LKM AB) 10/06 MRI ABD W&WO CONTRAST 12/09/2023 MRI ABD W&WO CONTRAST 07/06/2024 US LIVER BIOPSY CORE GUIDE 11/22/2021 FLUOR. ANTINUCLEAR AB SCREEN (YARED) 07/06 FLUOR. ANTINUCLEAR AB SCREEN (YARED) 10/06 FLUOR. ANTINUCLEAR AB SCREEN (YARED) 11/06 HCV LIVER FIBROSIS, FIBRO TEST 2 Prothrombin Time INR 07/29/2023 Prothrombin Time INR 10/23/2022 Creatinine 07/06/2024 Liver Fibrosis Pnl 10/23/2022 Liver Fibrosis Pnl 07/29/2023 Protein Electrophoresis, Serum 2 Mitochondrial Antibody 10/23/2022 Smooth Muscle Antibody 10/23/2022 US abdomen comp w elastography 3 Future Test Test Name Order Date UPPER GI ENDOSCOPY 12/09/2023 COLONOSCOPY 12/09/2023 Next Appt Details Provider Name:Raj Buitrago Manuel , 02/04/2025 01:00:00 PM, [address] [place] [address], [address], [place], [address], Insurance Providers Payer Name Payer Address Payer Phone Subscriber Number Group Number Insured Name Patient Relationship to Insured Coverage Start Date Coverage End Date [facility] [address] Attn Claims [place] [id number] CARISSA KILLIAN Self - patient is the insured Medical (General) History Medical History History ICD Code Obesity Microscopic hematuria Fatty liver with elevated LF T's--completely negative liver workup except for a positive LUCÍA at a titer of 1:640 in a nuclear and centromere pattern. Liver biopsy in December of 2021 revealed findings most consistent with a fatty liver and stage III liver fibrosis with nodules--the biopsy report does not describe much in the way of any findings that would support autoimmune hepatitis. She was started on ursodiol l 1.5 g daily in December of 2021. She is also being followed by Dr. Justin Crook at [facility] Hepatology [facility]. Hyperlipidemia Denies CT,DM,CVA,Lung disease,renal dise ase Colonoscopy age 49-Dr. Sindhu joaquin--told of polyp, but advised to repeat the colonoscopy in 10 years She takes Truvada due to her 's H IV infection Screening colonoscopy in February of 2024 was negative other than some very small benign-appearing polyps which were not biopsied or removed given her relative coagulopathy and thrombocytopenia Upper endoscopy in February revealed some mild portal gastropathy but was negative for any varices or other pathology spring-slightly elev ated alpha-fetoprotein level of 8 with a MRI showing a 1.2 x 1.6 cm arterial phase hyperenhancing lesion which was not felt to represent a hepatoma. It appeared stable from a 2022 MRI Surgical History Surgery Date(Month/Year)
--- OUTSIDE RECORDS SUMMARY | 2024-12-16 11:41 | XMS_ITS ---
Author Organization [facility] Address [address] [place] [address] Care Team Providers Care Covered Button Maker Name Role Phone Ludy Ellis MD, Rey Primary Care Provide Raj Mireles [phone] Allergies No Known Allergies REASON FOR VISIT Patient presents today for a fatty liver Medications Medication SIG (Take, Route, Frequency, Duration) Notes Start Date End Date Status Ursodiol 500 MG 2 Orally Twice a day for 30 day(s) 12/22/2022 Not-Taking Ursodiol 500 MG 2 Orally Twice a day for 30 day(s) 08/20/2023 Not-Taking Omeprazole 40 MG 1 Orally Once a day for 30 day(s) 12/09/2023 Active Ursodiol 500 MG 2 tablets QAM and 1 tablet Q PM Orally BID 12/30/2021 Active Emtricitabine-Tenofo vir DF 200-300 MG Oral for 30 Active Truvada 200-300 MG 1 tablet Orally Once a day for 30 day(s) For her 's HIV Active Social History Tobacco Use: Social History Observation Description Date Details (start date - stop date) Never Smoker NA - NA Tobacco Use/Smoking Question Answer Notes Patient is a nonsmoker Alcohol Screen Question Answer Notes Did you have a drink containing alcohol in the p ast year? No Points 0 Interpretation Negative Section Notes: No significant alcohol, nons moker Problems Problem Type SNOMED Code ICD Code Onset Dates Problem Status W/U Status Risk Notes Problem Abnormal findings diagnostic imaging of liver and biliary tract ([id number]) Abnormal MRI, liver (R93.2) Active confirmed Vital Signs Blood pressure systolic 00 mm Hg 10/01/20 24 Blood pressure diastolic 00 mm Hg 024 Height 64 in 07/06/2024 Weight 177 lbs 07/06/2024 BMI 30.38 kg/m2 07/06/2024 Encounters Encounter Location Date Provider Diagnosis [facility] [address] [place] [address] 07/06/2024 Raj Manuel Fatty liver K76.0 ; Cirrhosis K74.60 ; Elevated liver function tests R79.89 ; Gastroesophageal reflux disease K21.9 ; Colon cancer screening Z12.11 ; Elevated alpha fetoprotein R77.2 and Abnormal MRI, liver R93.2 Assessments Encounter Date Diagnosis (ICD Code) Assessment Notes Treatment Notes Treatment Clinical Notes Section Notes 07/06/2024 Fatty liver (ICD-10 - K76.0) Continue [...] keep you advised of her progress. 07/06/2024 Elevated liver function tests (ICD-10 - [...] keep you advised of her progress. 07/06/2024 Gastroesophageal reflux disease (ICD-10 - K21.9) [...] keep you advised of her progress. 07/06/2024 Colon cancer screening (ICD-10 - Z12.11) [...] keep you advised of her progress. 07/06/2024 Elevated alpha fetoprotein (ICD-10 - R77.2) [...] keep you advised of her progress. 07/06/2024 Abnormal MRI, liver (ICD-10 - R93.2) [...] to keep you advised of her progress. Plan Of Treatment Treatment Notes Assessment Notes Fatty liver Continue the same Ur sodiol Gastroesophageal reflux disease Continue the omeprazole Colon cancer screening Repeat colonoscop y in 2028 Pending Test Test Name Order Date BUN 07/06/2024 MRI ABD W&WO CONTRAST 07/06/2024 Creatinine 07/06/2024 Next Appt Details Follow Up: Spring 2024, Reas on: Provider Name:Raj Manuel , 02/04/2025 01:00:00 PM, [address] [facility], [address], [place], [address], Progress Notes * MARIA D CARISSA EDOB: 4 (59 yo F)Acc No.[id number]:07/06/2024 Progress Notes Patient:?JUNIOR KILLIANNA Tomer Provider:?Raj Manuel MD :1965???Age:59 Y???Sex:Female D ate:07/06/2024 Address:[address] [place], [place] [id number] Pcp:Rey lockwood MD Subjective: * Chief Complaints: * ???Patient presents today fo r a fatty liver * HPI: ???incontinence:? I saw Carissa in followup today in regard to her underlying history of cirrhosis in relation to fatty liver. ?I last saw Carissa in February, at which time she underwent an upper endoscopy and colonoscopy. The colonoscopy revealed only tiny polyps which were not biopsied or removed due to her relative coagulopathy and thrombocytopenia. The upper endoscopy was negative for varices but did reveal a mild portal gastropathy and hiatal hernia. She did have a slightly elevated alpha-fetoprotein level of 8 and MRI in January showed a 1.2 x 1.6 cm arterial phase hyperenhancing lesion that was felt to be benign and not consistent with a hepatoma. ?Since those procedures she has been feeling well. She has remained on daily omeprazole with good relief of her previous upper abdominal discomfort. She also denies any heartburn or abdominal pain. She denies any jaundice, increasing abdominal girth, pruritus, fatigue or edema. Her bowel movements have been regular and without any signs of bleeding. ?Laboratories from today showed a hemoglobin of 11.6, platelets 102,000, and white blood cell count 7.6. This was all stable compared to December. Her PT was stable at 15.6 with INR 1.3. Her LFTs were also stable with a total bilirubin of 1.4, AST 45, ALT 21, albumin 3.1, and an alkaline phosphatase of 164. She does have an alpha-fetoprotein level and liver fibrosis score pending. * ROS:?General/Constitutional:?Change in appetite?denies.?Chills?denies.?Fatigue?denies.?Ophthalmologic:?Comments?all negative.?ENT:?Comments?all negative.?Respiratory:?hemoptysis?denies.?Cough?denies.?Cardiovascular:?Chest pain?denies.?Orthopnea?denies.?Gastrointestinal:?Comments?See HPI for details.?Genitourinary:?Hematuria?denies.?Dysuria?denies.?Musculoskeletal:?Painful joints?denies.?Weakness?denies.?Skin:?Itching?denies.?Rash?denies.?Neurologic:?Headache?denies.?Seizures?denies.?Psychiatric:?Comments?all negative.? * Medical History:? * Surgical History:?Denies Pas t Surgical History * Hospitalization/Major Diagno stic Procedure:?No Hospitalization History. * Family History:?Father: dece ased.?Mother: alive, diagnosed with HTN (hypertension), Diabetes.? No family history of colon cancer nor liver disease. * Social History:?Tobacco Use:?Tobacco Use/Smoking?Patient is a?nonsmoker.?Drugs/Alcohol:?Alcohol Screen?Did you have a drink containing alcohol in the past year??No,?Points?0,?Interpretation?Negative.?Miscellaneous:?Marital status: single. Occupation: retired. ???No significant alcohol, nonsmoker. * Medications:?TakingTruvada 2 00-300 MG Tablet 1 tablet Orally Once a day, Notes: For her 's HIVOmeprazole 40 MG Capsule Delayed Release 1 Orally Once a dayUrsodiol 500 MG Tablet 2 tablets QAM and 1 tablet Q PM Orally BIDEmtricitabine-Tenofovir DF 200-300 MG Tablet Oral Taking Truvada 200-300 MG Tablet 1 tablet Orally Once a day, Notes: For her 's HIVTaking Omeprazole 40 MG Capsule Delayed Release 1 Orally Once a dayTaking Ursodiol 500 MG Tablet 2 tablets QAM and 1 tablet Q PM Orally BIDTaking Emtricitabine-Tenofovir DF 200-300 MG Tablet Oral Not- Taking/PRNUrsodiol 500 MG Tablet 2 Orally Twice a dayUrsodiol 500 MG Tablet 2 Orally Twice a dayNot-Taking/PRN Ursodiol 500 MG Tablet 2 Orally Twice a dayNot-Taking/PRN Ursodiol 500 MG Tablet 2 Orally Twice a dayDiscontinuedClotrimazole 1 % Cream 1 application Externally Twice a dayVoltaren 1 % Gel as directed Externally MiraLax (colon prep) 17 GM/SCOOP Powder 1 238Gm bottle mixed with Gatorade or Crystal Light Orally begin at 5:00 p.m. the day before the procedureDulcolax (colon prep) 5 MG Tablet Delayed Release take at 3:00 p.m and 7:00p.m. Orally two tablets twice a day for one dayOmeprazole 20 MG Capsule Delayed Release 1 Orally Once a day in the morningMedication List reviewed and reconciled with the patientDiscontinued Clotrimazole 1 % Cream 1 application Externally Twice a dayDiscontinued Voltaren 1 % Gel as directed Externally Discontinued MiraLax (colon prep) 17 GM/SCOOP Powder 1 238Gm bottle mixed with Gatorade or Crystal Light Orally begin at 5:00 p.m. the day before the procedureDiscontinued Dulcolax (colon prep) 5 MG Tablet Delayed Release take at 3:00 p.m and 7:00p.m. Orally two tablets twice a day for one dayDiscontinued Omeprazole 20 MG Capsule Delayed Release 1 Orally Once a day in the morningMedication List reviewed and reconciled with the patient * Allergies:?N.K.D.A.yes[Aller gies Verified] Objective: * Vitals:?Wt: 177 lbs, Ht: 64 in, BMI:30.38 Index, BP: 00/00 mm Hg. * Examination: ???General Examination: ?GENERAL APPEARANCE:?pleasant, well nourished, well developed, in no acute distress.?EYES:?sclera non-icteric.?ORAL CAVITY:?mucosa moist.?NECK/THYROID:?no cervical lymphadenopathy, neck supple.?SKIN:?nonjaundiced, no spider angiomata.?HEART:?S1, S2 normal.?LUNGS:?clear to auscultation bilaterally.?ABDOMEN:?normal bowel sounds, no guarding or rigidity, no guarding or rigidity, no masses palpable, soft, nondistended. She does have some tenderness to palpation in the epigastric area.?EXTREMITIES:?no edema.?NEUROLOGIC:?alert and oriented.? Assessment: * Assessment: 1.?Cirrhosis - K74.60 (Prima ry)?2.?Fatty liver - K76.0?3.?Elevated liver function tests - R79.89?4.?Gastroesophageal reflux disease - K21.9?5.?Colon cancer screening - Z12.11?6.?Elevated alpha fetoprotein - R77.2?7.?Abnormal MRI, liver - R93.2? Overall, Carissa appears well and her liver [...] of ursodiol. The results of her pending alpha-fetoprotein level and liver fibrosis score will be [...] to keep you advised of her progress. Plan: * Treatment: 2.?Fatty liver? Notes: Continue the same Ursodiol??3.?Gastroesophageal reflux disease? Notes: Continue the omeprazole??4.?Colon cancer screening? Notes: Repeat colonoscopy in 2028??5.?Elevated alpha fetoprotein?LAB: BUN ?LAB: Creatinine ?Imaging: MRI ABD W&WO CONTRAST* 6.?Abnormal MRI, liver?LAB: BUN ?LAB: Creatinine ?Imaging: MRI ABD W&WO CONTRAST* * Procedure Codes:?3017F COLOR ECTAL CA SCREEN DOC [id number] TOBACCO [id number] BP SCR NOT PRFRM REC REASON NOS * Follow Up:?Spring 2024 * * Sign off status: Completed true * Provider:?Raj Manuel MD Date:? 024 Generated for Eli pina/Murtaza/eTransmitting on:?12/16/2024 11:41 AM EDT History and Physical Notes * HPI (History of Present Illness) Category Sub-Category Detail Notes Category Not es incontinence I saw Carissa in followup today in regard to her underlying history of cirrhosis in relation to fatty liver. I last saw Carissa in February, at which time she underwent an upper endoscopy and colonoscopy. The colonoscopy revealed only tiny polyps which were not biopsied or removed due to her relative coagulopathy and thrombocytopenia. The upper endoscopy was negative for varices but did reveal a mild portal gastropathy and hiatal hernia. She did have a slightly elevated alpha-fetoprotein level of 8 and MRI in January showed a 1.2 x 1.6 cm arterial phase hyperenhancing lesion that was felt to be benign and not consistent with a hepatoma. Since those procedures she has been feeling well. She has remained on daily omeprazole with good relief of her previous upper abdominal discomfort. She also denies any heartburn or abdominal pain. She denies any jaundice, increasing abdominal girth, pruritus, fatigue or edema. Her bowel movements have been regular and without any signs of bleeding. Laboratories from today showed a hemoglobin of 11.6, platelets 102,000, and white blood cell count 7.6. This was all stable compared to December. Her PT was stable at 15.6 with INR 1.3. Her LFTs were also stable with a total bilirubin of 1.4, AST 45, ALT 21, albumin 3.1, and an alkaline phosphatase of 164. She does have an alpha-fetoprotein level and liver fibrosis score pending. Examination Category Sub-Category Detail Notes Category Not es General Examination GENERAL APPEARANCE: pleasant , well nourished, well developed, in no acute distress HEAD: EYES: sclera non-icteric EARS: NOSE: THROAT: NECK/THYROID: no cervical lymphade nopathy, neck supple HEART: S1, S2 normal CHEST: LUNGS: clear to auscultatio n bilaterally ABDOMEN: normal bowel sounds, no guarding or rigidity, no guarding or rigidity, no masses palpable, soft, nondistended. She does have some tenderness to palpation in the epigastric area NEUROLOGIC: alert and oriented SKIN: nonjaundiced, no spi darryn angiomata EXTREMITIES: no edema PERIPHERAL PULSES: BACK: BREASTS: MUSCULOSKELETAL: MALE GENITOURINARY: LYMPH NODES: RECTAL EXAM: FEMALE GENITOURINARY: ORAL CAVITY: mucosa moist
--- OUTSIDE RECORDS SUMMARY | 2024-12-16 11:41 | XMS_ITS ---
Author Organization [facility] Address [address] [place] [address] Care Team Providers Care Park Ranger Name Role Phone Ludy Ellis MD, Rey Primary Care Provide Raj Mireles [phone] Results Component Value Reference Range Notes Prothrombin Time INR Reviewed date:07/05/2024 06:13:08 PM Interpretation: Performing Lab:[facility], [address] [place] [id number] Notes/Report: Prothrombin Time 15.6 10.9-12.4 SEC INTERNATIONAL [...] Pnl Reviewed date:07/11/2024 02:14:42 PM Interpretation: Performing Lab:[facility], [address] [place] [id number] Notes/Report: Liver Fibrosis Score 0.89 Liver Fibrosis [...] a>0.62 and a<=1.00 : A3 (severe activity) UCE-Vkmkk-0-Macroglobulin 282 106-279 mg/dL FIB-Haptoglobin 16 43-212 mg/dL FIB-Apolipoprotein A1 70 101-198 mg/dL FIB-Total Bilirubin 1.3 0.2-1.2 mg/dL FIB-GGT 21 3-65 U/L FIB-ALT 19 6-29 U/L Reference ID [id number] Footnote SEE NOTE The reliability of results is dependent on compliance with the preanalytical and analytical conditions recommended by [employer]. The tests have to be deferred for: [...] The performance characteristics have been determined by [facility]. It has not been cleared or approved by the U.S. Food and Drug Administration. Performance characteristics refer to the analytical performance of the test. [employer], the associated logo, [employer] and all associated [employer] o[employer] are the registered trademarks of [employer]. All third alliance party oden - (R) and (TM) - are the property of their respective owners. (C) 0812-6946 [employer]. All rights reserved. THIS TEST WAS PERFORMED AT: [employer] [facility] [address] [place] [address] VERONIKA DELONG MD,PHD,LAURA REASON FOR VISIT LABS Problems Problem Type SNOMED Code ICD Code Onset Dates Problem Status W/U Status Risk Notes Problem GARVEY - Nonalcoholic steatohepatitis (705528464) Nonalcoholic steatohepatitis (GARVEY) (K75.81) Active confirmed Encounters Encounter Location Date Provider Diagnosis [facility] [address] [place] [address] 06/29/2024 Raj Manuel Cirrhosis K74.60 and Nonalcoholic steatohepatitis (GARVEY) K75.81 Assessments Encounter Date Diagnosis (ICD Code) Assessment Notes Treatment Notes Treatment Clinical Notes Section Notes 06/29/2024 Cirrhosis (ICD-10 - K74.60) 06/29/2024 Nonalcoholic steatohepatitis (GARVEY) (ICD-10 - K75.81) Plan Of Treatment Pending Test Test Name Order Date LIVER PROFILE 06/29/2024 CBC w DIFF 06/29/2024 ALPHA-FETOPROTEIN,TUMOR MARKER Next Appt Details Provider Name:Raj Manuel , 02/04/2025 01:00:00 PM, [address], [address], [place], [address], Progress Notes * FAY KILLIAN EDOB: 4 (59 yo F)Acc No.[id number]:06/29/2024 Patient:?FAY KILLIAN :1965???Age:59 Y???Sex:Female Address:[address] [place] [address], [place], [address] Subjective: * Chief Complaints: * ???LABS * Medical History:? * Surgical History:? * Hospitalization/Major Diagno stic Procedure:? * Medications:? Objective: Assessment: * Assessment: 1.?Cirrhosis - K74.60 (Prima ry)?2.?Nonalcoholic steatohepatitis (GARVEY) - K75.81? Plan: * Treatment: ? Value Reference Range ?Prothrombin Time 15.6 H 10.9-1 2.4 - SEC * ?INTERNATIONAL NORM RATIO 1.3 H 0.9-1.1 - ?LAB: Liver Fibrosis Pnl2.?Nonalcoholic steatohepatitis (GARVEY)?LAB: LIVER PROFILE ?LAB: CBC w DIFF ?LAB: ALPHA-FETOPROTEIN,TUMOR MARKER ?LAB: Prothrombin Time INR* ? Value Reference Range ?Prothrombin Time 15.6 H 10.9-1 2.4 - SEC * ?INTERNATIONAL NORM RATIO 1.3 H 0.9-1.1 - ?LAB: Liver Fibrosis Pnl * Procedure Codes:? * true * Date:? Generated for Eli pina/Murtaza/eTransmitting on:?12/16/2024 11:41 AM EDT
--- OUTSIDE RECORDS SUMMARY | 2024-12-16 11:41 | XMS_ITS | Encounter Summary ---
Author Organization [employer] Address [address] [place] [address] Care Team Providers Care Software Integration Developer Name Role Phone Rey Soriano MD Primary Care Provide r Encounter Details Date Type Department Care Team ([facility] st Contact Info) Description 12/02/2024 Telephone C [facility] [address] [place] [address] Poli, Saira, OD [address] [place] [address] Social History Tobacco Use Types Packs/Day Years Used Date Smoking Tobacco: Never Smokeless Tobacco: Never Alcohol Use Standard Drinks/Week Comments Never 0 (1 standard drink = 0.6 oz pur e alcohol) PHQ-2 Answer Date Recorded Patient Health Questionnaire-2 Score 0 10/01/2022 Housing Stability Answer Date Recorded What is your housing situation today? I have lanalaurence sandhu 10/01/[address] you li ve. Do you have problems with any of the following? None of the above 10/01/2023 Food Insecurity Answer Date Recorded Within the past 12 months, y ou worried that your food would run out before you got money to buy more: Never True 07/23/2023 Within the past 12 months,th e food you bought just didn't last and you didn't have enough money to get more: Never True Transportation Answer Date Recorded In the past 12 months, has l ack of transportation kept you from medical appts, meetings, work or from getting things needed for daily living? No 07/23/2023 Utilities Answer Date Recorded In the past 12 months, has t he electric, gas, oil or water company threatened to shut off services in your home? No 07/23/2023 Depression Answer Date Recorded Patient Health Questionnaire-2 Score 0 10/01/2022 Internet Access Answer Date Recorded Internet Access Q1 Yes 06/07/2024 Internet Access Q2 Not on file 06/07/2024 Comments No Sex and Gender Information Value Date Recorded Sex Assigned at Female 08/05/2022 10:17 AM EDT Legal Sex Female 10:17 AM EDT Gender Identity Female 08/05/2022 10:17 AM EDT Sexual Orientation Straight 08/05/2022 10 :17 AM EDT documented as of this encounter Plan of Treatment Not on file documented as of this encounter Visit Diagnoses Not on filedocumented in this encounter Care Teams Software Integration Developer Relationship Specialty Start Date End Date Rey Soriano MD [address] [place] [address] PCP - General Internal Medicine 07/04/14 documented as of this encounter
--- OUTSIDE RECORDS SUMMARY | 2024-12-16 11:41 | XMS_ITS | Encounter Summary ---
Author Organization [facility] [facility] Address [address] [place] [address] [address] [place] [address] Care Team Providers Care Pet Technologist Name Role Phone Rey Soriano MD Primary Care Provide r Reason for Visit * Reason Comments Med Refill Encounter Details Date Type Department Care Team (Late st Contact Info) Description 05/14/2023 Refill [facility] MED[facility]INE [address] [place], [place] [phone] Chiquis Kumar MD [address] [place], [place] [phone] Acute nonintractable headache, unspecified headache type Social History Tobacco Use Types Packs/Day Years [...] documented as of this encounter Visit Diagnoses Diagnosis Acute nonintractable headache, unspecified headache type documented in this encounter Care Teams Pet Technologist Relationship Specialty Start Date End Date Rey Soriano MD [address] [place], [place] [phone] PCP - General Internal Medicine 07/04/14 documented as of this encounter
--- OUTSIDE RECORDS SUMMARY | 2024-12-16 11:41 | XMS_ITS | Clinical Summary ---
Author Organization [employer] Address [address] [place] [address] [address] [place] [address] Care Team Providers Care Motor Vehicles Inspector Name Role Phone Rey Soriano MD Primary Care Provide r Allergies No known active allergies Medications * This document contains information received from the source organization and may not represent a complete record from that organization. emtricitabine-teno fovir DF (Truvada) 200-300 MG tablet Take 1 tablet by mouth. 06/04/20 22 Active ursodiol (Actigall) 500 MG tablet twice a day. 12/31/19 22 Active ketotifen (Zaditor) 0.025 % ophthalmic solution Administer 1 drop into affected eye(s) every 12 (twelve) hours. 02/07/20 22 Active sertraline (Zoloft) 100 MG tablet Take 100 mg by mouth in the morning. 09/25/20 22 Active omega-3 (Fish Oil) 1000 MG capsule daily. Acti ve sodium chloride (Trainer Nasal Lincoln) 0.65 % nasal sprayIndications:N angus congestion 1-2 sprays on each nostril every 2-3 hours as needed for nasal congestion 30 mL 1 11/26/19 23 Active clotrimazole (Lotrimin) 1 % creamIndications:D ermatitis APPLY TO AFFECTED AREA(S) AND SURROUNDING AREA(S) TWICE DAILY IN THE MORNING AND EVENING 60 g 02/15/20 23 Active meloxicam (Mobic) 15 MG tabletIndications: Pain TAKE 1 TABLET BY MOUTH DAILY NEEDED FOR PAIN 30 tablet 08/12/20 23 Active cetirizine (ZyrTEC) 10 MG tablet TAKE 1 TABLET BY MOUTH EVERY DAY NEEDED FOR NASAL CONGESTION 90 tablet 1 11/25/19 Active tiZANidine (Zanaflex) 2 MG tablet 1-2 tab po bid x 1w then bid prn pain 60 tablet 05/25/20 Active ibuprofen 400 MG tablet Take 1 tablet (400 mg) by mouth every 6 (six) hours if needed for moderate pain or fever for up to 30 doses. 20 tablet 09/22/20 Active Nirmatrelvir&Riton avir 300/100 (Paxlovid, 300/100,) 20 x 150 MG & 10 x 100MG tablet therapy pack Take 300 mg by mouth 2 times daily. Take 3 tablets 2x/day for 5 days 30 each 09/22/20 Active Acetaminophen Extra Strength 500 MG tabletIndications: Acute nonintractable headache, unspecified headache type TAKE 1 TABLET BY MOUTH EVERY 6 HOURS NEEDED FOR PAIN OR FEVER OR FOR HEADACHE 40 tablet 09/22/20 Active Active Problems Problem Noted Date Diagnosed Date Other osteoarthritis of spine 05/25/2024 Assessment & Plan (05/25/2024 1:07 PM EDT): - pt has mild radiculopathy symptoms - advised to do stretching exercises, information handed to pt today - use heat to affected area + Lidocaine patch for radiculopathy - use Tylenol + Tizanidine and RTC PRN if she developes urinary retention or worsening LE paresthesia/weakness - refer to PT Other cirrhosis of liver 07/01/2023 Assessment & Plan (07/01/2023 2:11 PM EDT): Thought to be due to GARVEY. Under the care of liver clinic at [facility] Dr Justin Crook Elevated antinuclear antibody (LUCÍA) level 2021 Assessment & Plan (07/01/2023 2:18 PM EDT): Pt with positive LUCÍA Titer 1;1280 Pattern: Nuclear, centromere This was ordered by GI who has been pursuing a diagnostic work up for Steatohepatitis Seen by Rheumatology who did not find clinial evidence of inflamatory arthritis, he ordered furhter labs that came positive for Anti centromere Ab 06/19/2023 Assessment & Plan (12/24/2022 9:07 AM EDT): Pt with positive LUCÍA Titer 1;1280 Pattern: Nuclear, centromere This was ordered by GI who has been pursuing a diagnostic work up for Steatohepatitis Plan: Will refer to Rheumatology for evaluation Endometrial hyperplasia 10/01/2022 Assessment & Plan (10/01/2022 8:39 AM EST): Pt with a Hx of heavy menstrual bleeding She is A0 , sexually active pre-menopausal Pt was evaluated by [facility]'s [facility] who recommended to proceed with Transvaginal US done on 10/03/2014 that showed a thickened endometrium and ? fibroid. Pt had an endometrial biopsy 09/04/2015 that was unremarkable and has a f/u with them. she has the Mirena in place GARVEY (nonalcoholic steatohepatitis) 10/01/2022 Assessment & Plan (07/01/2023 2:17 PM EDT): Pt here for a f/u Patient with persistent elevation of LFTs, off Statins Work up neg for Hepatitis, Pt also on Truvada for HIV prevention ( partner HIV positive). U/S shows fatty liver Pt see by Dr Manuel ( ) Fibrosure with a score of 0.58 suggestive of moderate fibrosis and a positive LUCÍA. I discussed with her the need to loose weight, I referred her to the comprehensive weight management program Pt underwent liver biopsy 12/19/2021 that showed: steatohepatitis with moderate portal and mild lobular chronic inflamation with rare eosinophils, predominantely microvesicular steatosis involving 30-40% of the tissue with focal ballon cell degeneration. portal and sinusoidal fibrosis with focal nodule formation ( stage 3 fibrosis) Findings most consistent with toxic/metabolic etiology Case discussed with Dr Manuel who is treating her for Ursodiol for fatty liver and recommended repeat labs. She is now under the care of Dr Justin Rehman at [facility]. Last seen in 2022 had EGD that showed grade 1 esophageal varices. She will continue to follow with him Assessment & Plan (12/24/2022 11:12 AM EDT): Pt here for a f/u Patient with persistent elevation of LFTs, off Statins Work up neg for Hepatitis, Pt also on Truvada for HIV prevention ( partner HIV positive). U/S shows fatty liver Pt see by Dr Manuel (GI ) Fibrosure with a score of 0.58 suggestive of moderate fibrosis and a positive LUCÍA. I discussed with her the need to loose weight, I referred her to the comprehensive weight management program Pt underwent liver biopsy 12/19/2021 that showed: steatohepatitis with moderate portal and mild lobular chronic inflamation with rare eosinophils, predominantely microvesicular steatosis involving 30-40% of the tissue with focal ballon cell degeneration. portal and sinusoidal fibrosis with focal nodule formation ( stage 3 fibrosis. Findings most consistent with toxic/metabolic etiology Case discussed with Dr Manuel who is treating her for Ursodiol for fatty liver and recommended repeat labs Repeat labs 12/05/2022 showed ALT 51 , AST 83 Assessment & Plan (10/01/2022 8:36 AM EST): Pt here for a f/u Patient with previous persistent elevation of LFTs, Statin was discontinued as a result Work up neg for Hepatitis, Pt also on Truvada for HIV prevention ( partner HIV positive). U/S shows fatty liver Pt see by Dr Manuel (GI ) Fibrosure with a score of 0.58 suggestive of moderate fibrosis and a positive LUCÍA. I discussed with her the need to loose weight, I referred her to the comprehensive weight management program Pt underwent liver biopsy 12/19/2021 that showed: steatohepatitis with moderate portal and mild lobular chronic inflamation with rare eosinophils, predominantely microvesicular steatosis involving 30-40% of the tissue with focal ballon cell degeneration. portal and sinusoidal fibrosis with focal nodule formation ( stage 3 fibrosis. Findings most consistent with toxic/metabolic etiology Case discussed with Dr Manuel who is treating her for Ursodiol for fatty liver and recommended repeat labs Repeat labs 08/13/2022 showed ALT 65 , AST 93 At risk for sexually transmi tted disease due to partner with HIV 10/01/2022 Assessment & Plan (10/01/2022 8:38 AM EST): Pt's partner is HIV positive She is on Truvada to prevent HIV being followed by PrEP navigator at [facility] health care 10/01/2022 Assessment & Plan (07/01/2023 2:19 PM EDT): Mammogram: NL : 11/26/2022 Pap Smear: NL: 09/09/2017 Colonoscopy: 02/13/2015 Dr. Isaias Pritchett, Dx hyperplastic polyp 10 year f/u rec. Assessment & Plan (10/01/2022 11:05 AM EST): Physical exam today within normal limits Mammogram: NL : 11/23/2021 Pap Smear: NL: 09/09/2017 Colonoscopy: 02/13/2015 Dr. Isaias Pritchett, Dx hyperplastic polyp 10 year f/u rec. Mild major depression, single episode 01/15/2018 Assessment & Plan (10/01/2022 8:39 AM EST): Pt reports she is doing well Under the care of Leonel Thomas psychotherapist and Psychiatrist Melinda medina Pt is on Sertraline 100 mg po daily, Hydroxyzine 25 mg po prn Doing well Mixed hyperlipidemia 09/14/2015 Assessment & Plan (07/01/2023 2:26 PM EDT): Here for a f/u Most recent lipid profile from: 08/13/2022 shows a total cholesterol of: 194 triglycerides of: 123 HDL of: 41 and LDL of: 123 Currently off statins due to persistent LFT elevation She was on a regimen of: Simvastatin 40 mg po qhs and Fish Oil 1000 mg po TID Plan: Continue to hold Statins advised to try to adhere to a low cholesterol diet, counseled and educated about diet and exercise, Patient encouraged to come up with a personal goal for weight loss. Seen by Benefits Specialist Recruiter twice Will repeat Lipid profile Assessment & Plan (12/24/2022 9:04 AM EDT): Here for a f/u Most recent lipid profile from: 08/13/2022 shows a total cholesterol of: 194 triglycerides of: 123 HDL of: 41 and LDL of: 123 Currently off statins due to persistent LFT elevation She was on a regimen of: Simvastatin 40 mg po qhs and Fish Oil 1000 mg po TID Plan: Continue to hold Statins advised to try to adhere to a low cholesterol diet, counseled and educated about diet and exercise, Patient encouraged to come up with a personal goal for weight loss. Seen by Benefits Specialist Recruiter twice Microscopic hematuria 07/06/2012 Assessment & Plan (10/01/2022 8:40 AM EST): Pt with a previous Hx. of microscopic hematuria has had an extensive urology work up by Dr. Yepez that included a cystoscopy (12-11-2007) that was within normal limits. CT scan of abdomen and pelvis was also normal (06-22-2007), Urine cytology (06/16/2008) was negative. Pt was also seen by Renal specialist (Dr Beverly) who recommended to continue to monitor her renal function on a yearly basis. Most recent BUN nad Cr done on: 07/02/2021 were wnl. Obesity 07/06/2012 Assessment & Plan (12/24/2022 9:04 AM EDT): Patient has been counseled and educated about diet and exercise. Personal goal of weight loss discussed Encounters Date Type Department Care Team Description 12/02/2024 Telephone [facility] [address] [place] [address] Saira Ashton, OD 10/21/2024 12:10 PM EST Immunization [facility] [address] [place] [address] Ashley Norwood RN Encounter for immunization 10/21/2024 Travel 09/22/2024 3:40 PM EST Office Visit [facility] [address], [place] [phone] Alpesh Zambrano MD COVID-19 virus infection (Primary Dx); Cough, unspecified type; Acute nonintractable headache, unspecified headache type 09/22/2024 Telephone [facility] [address] [place] [address] Rey Soriano MD Nurse Triage from Last 3 Months Immunizations Name Administration Dates Next Due Hep A, Adult 09/26/2023,02/14/2023 Hep B, adult 11/13/2020,06/06/2020,11/26/2019 Influenza Injectable Quadriv alant Preservative Free IIV4 MDCK 07/11/2022 Influenza injectable quadriv alent IIV4 with preservative 07/19/2019,07/28/2018,09/18/2017 Influenza injectable quadriv alent preservative free 09/26/2023,07/18/2021,07/13/2020,2016,07/04/2015 Influenza, IIV3, injectable 07/09/2022,1 ,07/19/2014,2010 Influenza, Split (incl. tari fied surface antigen) 07/07/2013,06/18/2012 Influenza, seasonal, injecta ble, preservative free 10/21/2024 Moderna Covid-19 Vaccine 12+ 09/17/2021,12/20/19 21,11/21/2020 TD (adult), 2 Lf tetanus tox oid, preservative free, adsorbed 09/06/2004 Tdap 12/06/2014 Zoster, Recombinant 09/12/2022,07/11/2022 Social History Tobacco Use Types Packs/Day Years Used Date Smoking Tobacco: Never Smokeless Tobacco: Never Tobacco Cessation:Counseling Given: Not Answered Alcohol Use Standard Drinks/Week Comments Never 0 (1 standard drink = 0.6 oz pur e alcohol) PHQ-2 Answer Date Recorded Patient Health Questionnaire-2 Score 0 10/01/2022 Housing Stability Answer Date Recorded What is your housing situation today? I have lana edson 10/01/[address] you li [...] Orientation Straight 08/05/2022 10 :17 AM EDT Last Filed Vital Signs Vital Sign Reading Time Taken Comments Blood Pressure 118/74 09/22/2024 4:05 PM EST Pulse 76 09/22/2024 4:05 PM EST Temperature 37.1 ??C (98.8 ??F) 09/22/2024 4:05 PM ES T Respiratory Rate 20 09/22/2024 4:05 PM EST Oxygen Saturation 99% 09/22/2024 4:05 PM EST Inhaled Oxygen Concentration - - Weight 80.7 kg (178 lb) 09/22/2024 4:05 PM EST Height 154.9 cm (5' 1 ) 05/25/2024 11:58 AM EDT Body Mass Index 33.63 05/25/2024 11:58 AM EDT Plan of Treatment Health Maintenance Due Date Last Done Comments CT Colonography 1965 FIT DNA/Cologuard 1965 FIT 1965 FOBT 1965 Sigmoidoscopy 1965 Alcohol/Substance Use Screening 1976 Pneumococcal Vaccine: 50+ Years (1 of 2 - PCV) 02/16/1983 Depression Screening 10/01/2023 10/01/2022, 10/01/20 22 RSV Patients and Patients Aged 60 years or older (1 - Risk 60-74 years 1-dose series) 2024 COVID-19 Vaccine ( season) 2024 09/17/2021, 12/19/2020, 11/21/2020 SDOH Screening 10/28/2024 10/28/2023 DTaP/Tdap/Td Vaccines (2 - Td or Tdap) 12/06/2024 12/06/2014, 09/06/2004 Colonoscopy 02/13/2025 02/13/2015 Colorectal Cancer Screening 02/13/2025 Tobacco Screening 09/22/2025 09/22/2024 Mammogram 12/03/2025 12/03/2023, 11/07, 11/23/2021, Additional history exists Cervical Cancer Screening 11/28/2027 HPV/Cotest 11/28/2027 11/28/2022 Pap Smear 11/28/2027 11/28/2022 Lipid Panel 07/07/2028 07/07/2023, 11/0 05/2022, 04/29/2022, Additional history exists Hepatitis B Vaccines Completed 11/13/2020, 06/06/2020, 11/26/2019 HIV Screening Completed 07/02/2021 Hepatitis C Screening Completed 07/02/2021 Zoster Vaccines Completed 09/12/2022, 07/11/2022 Hepatitis A Vaccines Completed 09/26/2023, 02/15/20 Influenza Vaccine Completed 10/21/2024, , 07/11/2022, Additional history exists HIB Vaccines Aged Out No longer eligi ble based on patient's age to complete this topic HPV Vaccines Aged Out No longer eligi ble based on patient's age to complete this topic IPV Vaccines Aged Out No longer eligi ble based on patient's age to complete this topic Meningococcal Vaccine Aged Out No arslan duarte eligible based on patient's age to complete this topic RSV under 20 months Aged Out No longe r eligible based on patient's age to complete this topic Rotavirus Vaccines Aged Out No longer eligible based on patient's age to complete this topic Procedures Procedure Name Priority Date/Time Associated Diagnosis Comments POCT INFLUENZA B (ID NOW RAPID MOLECULAR) Routine 09/22/2024 4:16 PM EST Cough, unspecified type POCT INFLUENZA A (ID NOW RAPID MOLECULAR) Routine 09/22/2024 4:16 PM EST Cough, unspecified type POCT COVID-19 AG ARCHER ID NOW Routine 09/22/2024 4:07 PM EST Cough, unspecified type BI MAMMOGRAM SCREENING TOMOSYNTHESIS BILATERAL Routine 12/03/2023 11:05 AM EST LIPID PANEL WITH REFLEX TO DIRECT LDL Routine 07/07/2023 9:16 AM EDT Mixed hyperlipidemia PAP/HPV Routine 11/28/2022 ZZZ HISTORICAL HEPATITIS C AB W/REFL TO HCV RNA, QN, PCR Routine 07/02/2021 9:13 AM EDT HIV 1/2 ANTIGEN/ANTIBODY, FOURTH GENERATION W/RFL Routine 07/02/2021 9:13 AM EDT COLONOSCOPY Routine 02/13/2015 8:32 AM EDT from Last 3 Months or Most Recently Relevant to Health Maintenance Results * POCT Rapid Influenza B ARCHER ID NOW (09/22/2024 4:16 PM EST) [facility] Influenza B Negative Negative, Indeterminate [facility] Swab 09/22/2024 4:16 PM EST us Alpesh Zambrano MD POINT OF CARE TEST ENTER/EDIT OR DERABLES Final Result Performing Organization Address [facility] Co de Phone Number [facility] [address] [place] [phone] * POCT Rapid Influenza A ARCHER ID NOW (09/22/2024 4:16 PM EST) [facility] Influenza A Negative Negative, Indeterminate [facility] Swab 09/22/2024 4:16 PM EST us Alpesh Zambrano MD POINT OF CARE TEST ENTER/EDIT OR DERABLES Final Result Performing Organization Address [facility] Co de Phone Number [facility] [address] [place] [phone] * (ABNORMAL) POCT Rapid Covid-19 ARCHER ID NOW (09/22/2024 4:07 PM EST) Coronavirus Antigen PCR Positive (A) Negative, Indeterminate, None Detected, Invalid, Specimen unsatisfactory for evaluation, Weakly Positive [facility] Swab 09/22/2024 4:07 PM EST us Alpesh Zambrano MD POINT OF CARE TEST ENTER/EDIT OR DERABLES Final Result [facility] [address] [place] [phone] * BI Mammogram Screening Tomosynthesis Bilateral (12/03/2023 11:05 AM EST) Anatomical Region Laterality Modality Breast Bilateral Mammography 12/03/2023 11:0 5 AM EST Narrative 12/21/2023 3:37 PM EDT ? [facility] [place] ? [address] ?[place] [id number] ? Mammography Report ? Signed ? Patient: Magriz,Carissa ?MR#: [id number] ? : 1965 ?Acct:[id number] ? Age/Sex: 58 / F ?ADM Date: 12/03/23 ? Loc: HO.MAMMO ? Attending Dr: Rey Bess MD ? Ordering Physician: Rey Bess MD ?Resu ?? lts: 1Negative ? Date of Service: 12/03/ ?Follow Up: 1 Year From Orig ?? inal Mammogram ? Procedure(s): MM tomosynthesis screening BI ?? Accession Number(s): [id number] ? cc: Rey Bess MD ? EXAMINATION: ?? MM SCREENING DIGITAL BREAST TOMOSYNTHESIS, BILATERAL ? CLINICAL INFORMATION: ? Screening. Asymptomatic. ? COMPARISON: ?? Mammography: This study is compared with prior exams dating back to ?? 2019. ? TECHNIQUE: ?? Digital breast tomosynthesis is performed in both the craniocaudal and ?? mediolateral oblique views along with computer-aided detection (CAD). ?? Synthesized 2D images are generated from the tomosynthesis. ? FINDINGS: ?? There are scattered areas of fibroglandular density (ACR BI-RADS breast ?? composition Category b). ? There are no significant masses, abnormal calcifications, or other ?? abnormalities. ? MM/MM tomosynthesis screening BI ?? IMPRESSION: ?? No mammographic evidence of malignancy. ? ASSESSMENT: ? BI-RADS BI-RADS 1 - Negative ? RECOMMENDATION: ?? Routine annual mammography screening. ? 1 year F/U ? This examination should not preclude the clinical evaluation of a ?? suspicious palpable abnormality. ? This patient's information was entered into a reminder system with a ?? target due date for their next mammogram. ? Dictated By: ?Karina Sandhu MD ? Signed By: ?<Electronically signed by Karina Sandhu MD in OV> ? 12/21/23 1533 ? DD/ 1105 ? TD/TT: ? Cardroom Attendant: ? Procedure Note Fadia, Nicolasa - 12/21/2023 [facility] [address] [place] [address] Dr. Ballard, WANDA [address] Mammography Report Signed Patient: Dawna Winslow#: [id number] : 1965Acct:[id number] Age/Sex: 58 / FADM Date: 12/03/23 Loc: HO.MAMMO Attending Dr: Rey Bess MD Ordering Physician: Rey Bess MDResu lts: 1Negative Date of Service: 12/03/23Follow Up: 1 Year From Orig inal Mammogram Procedure(s): MM tomosynthesis screening BI Accession Number(s): [id number] cc: Rey Bess MD EXAMINATION: MM SCREENING DIGITAL BREAST TOMOSYNTHESIS, BILATERAL CLINICAL INFORMATION: Screening. Asymptomatic. COMPARISON: Mammography: This study is compared with prior exams dating back to 2019. TECHNIQUE: Digital breast tomosynthesis is performed in both the craniocaudal and mediolateral oblique views along with computer-aided detection (CAD). Synthesized 2D images are generated from the tomosynthesis. FINDINGS: There are scattered areas of fibroglandular density (ACR BI-RADS breast composition Category b). There are no significant masses, abnormal calcifications, or other abnormalities. MM/MM tomosynthesis screening BI IMPRESSION: No mammographic evidence of malignancy. ASSESSMENT: BI-RADS BI-RADS 1 - Negative RECOMMENDATION: Routine annual mammography screening. 1 year F/U This examination should not preclude the clinical evaluation of a suspicious palpable abnormality. This patient's information was entered into a reminder system with a target due date for their next mammogram. Dictated By: Karina Sandhu MD Signed By: <Electronically signed by Karina Sandhu MD in OV> 12/21/23 1533 DD/ 1105 TD/TT: Cardroom Attendant: us Rey Ellis MD IMG BI PROCEDURES Noble jese Result - Final * (ABNORMAL) Lipid Panel with Reflex to Direct LDL (07/07/2023 9:16 AM EDT) Triglycerides 115 <150 mg/dL [facility] Comment:Desirable Triglyceri de: less than 150 mg/dLBorderline High Triglyceride 150-199 mg/dLHigh Triglyceride: 200-499 mg/dLVery High Triglyceride: greater than or equal to 5OO mg/dL Cholesterol 154 <200 mg/dL [facility] Comment:Desirable Cholestero l: less than 200 mg/dLBorderline High Cholesterol: 200-239 mg/dLHigh Cholesterol: greater than 239 mg/dL LDL Cholesterol Calculated 104(H) <100 mg/dL [facility] Comment:Desirable LDL: less than 100 mg/dLNear Optimal/Above Optimal LDL: 110- 129 mg/dLBorderline High LDL: 130-159 mg/dLHigh LDL: 160-189 mg/dLVery High LDL: greater than or equal to 190 mg/dL HDL Cholesterol 27(L) >40 mg/dL [facility] Comment:Desirable HDL: great er than 40 mg/dL Note: This HDL assay may give artificially low results in patients with liver disease. Blood 07/07/2023 9:16 AM EDT 07/07/2023 9:16 AM EDT Rey Ellis MD LAB BLOOD ORDERABLES Final Result [facility] [address] [place] [phone] * Pap Smear (11/28/2022) Pap Negative for intraephithelial lesion or malignancy Negative for intraephithelial lesion or malignancy, Other HPV Undetected Undetected, Indeterminate, Quantitative, Not Detected Historical Provider HEALTH MAINTENANCE Final Result * HEPATITIS C AB W/REFL TO HCV RNA, QN, PCR (07/02/2021 9:13 AM EDT) HEPATITIS C ANTIBODY NON-REACT PARK NON-REACT PARK [facility] INDEX 0.01 <1.00 [facility] Comment: ?? HCV antibody was non-reactive. There is no laboratory ?? evidence of HCV infection. ?? In most cases, no further action is required. However, if recent HCV exposure is suspected, a test for HCV RNA (test code 56664) is suggested. ?? For additional information please refer to http://education.World Reviewer/faq/MPY45y3 (This link is being provided for informational/ educational purposes only.) ?? 07/02/2021 9:13 AM EDT us Aziza Otto ANP HISTORICAL/NON ORDERABLE LABS Fi nal Result Performing Organization Address [facility] Co de Phone Number [facility] [address] [place] [address], * HIV 1/2 ANTIGEN/ANTIBODY,FOURTH GENERATION W/RFL (07/02/2021 9:13 AM EDT) HIV-1/2 ANTIGEN AND ANTIBODIES, 4TH GENERATION W/ REFLEX NON-REACT PARK NON-REACT PARK [facility] Comment: HIV-1 antigen and HIV-1/HIV-2 antibodies were not detected. There is no laboratory evidence of HIV infection. ?? PLEASE NOTE: This information has been disclosed to you from records whose confidentiality may be protected by state law. ??If your state requires such protection, then the state law prohibits you from making any further disclosure of the information without the specific written consent of the person to whom it pertains, or as otherwise permitted by law. A general authorization for the release of medical or other information is NOT sufficient for this purpose. ? For additional information please refer to http://education.World Reviewer/faq/MUB405 (This link is being provided for informational/ educational purposes only.) ? The performance of this assay has not been clinically validated in patients less than 2 years old. ?? 07/02/2021 9:13 AM EDT us Aziza Otto ANP LAB BLOOD ORDERABLES Final Resul t Performing Organization Address [facility] Co de Phone Number [facility] [address] [place] [address], [place] * Hm Colonoscopy (02/13/2015 8:32 AM EDT) Colonoscopy Normal Normal Alpa Scott - 02/13/2015 8:32 AM EDT Recommended 10 year follow up per pcp note hyperplastic polyp us Historical Provider HEALTH MAINTENANCE Edited Result - Final from Last 3 Months or Most Recently Relevant to Health Maintenance Insurance [facility] - [facility] C[facility] Member Subscriber Plan / Payer ( fective 2020-Present) Name:Carissa Winslow Relation to Subscriber:Self Name:Carissa Winslow Payer ID:Not on file Group ID:[id number] Type:Not on file Address: [address] STANDARD Care Teams Motor Vehicles Inspector Relationship Specialty Start Date End Date Rey Soriano MD [address] [place] [address] PCP - General Internal Medicine 07/04/14
--- OUTSIDE RECORDS SUMMARY | 2024-12-16 11:41 | XMS_ITS ---
Author Organization [facility] Address [address] [place] [address] Care Team Providers Care Assistant Program Manager Name Role Phone Ludy Ellis MD, Rey Primary Care Provide Raj Mireles [phone] Encounters Encounter Location Date Provider Diagnosis [facility] [address] [place] [address] 07/19/2024 Raj Manuel Plan Of Treatment Next Appt Details Provider Name:Raj Manuel , 02/04/2025 01:00:00 PM, [address], [address], [place], [address], Progress Notes * FAY KILLIAN EDOB: 4 (59 yo F)Acc No.[id number]:07/19/2024 Patient:?FAY KILLIAN :1965???Age:59 Y???Sex:Female Address:[address] [place] [address], [address] Subjective: * Chief Complaints: * ??? * Medical History:? * Surgical History:? * Hospitalization/Major Diagno stic Procedure:? * Medications:? Objective: Assessment: Plan: * Treatment: * Procedure Codes:? * true * Date:? Generated for Printi ng/Fafernandag/eTransmitting on:?12/16/2024 11:41 AM EDT
--- OUTSIDE RECORDS SUMMARY | 2024-12-16 11:41 | XMS_ITS | Encounter Summary ---
Author Organization [facility] Address [address] [place] [address] 7 [place] [address] Care Team Providers Care Dolly Pusher Name Role Phone Rey Soriano MD Primary Care Provide r Reason for Visit * Reason Comments Med Refill Encounter Details Date Type Department Care Team (Late st Contact Info) Description 04/16/2023 Refill [facility] [address] [place], [place] [phone] Rey Soriano MD [address] [place], [place] [phone] Acute nonintractable headache, unspecified headache type Social [...] type documented in this encounter Care Teams Dolly Pusher Relationship Specialty Start Date End Date Rey Soriano MD [address] [place], [place] [phone] PCP - General Internal Medicine 07/04/14 documented as of this encounter
--- OUTSIDE RECORDS SUMMARY | 2024-12-16 11:42 | XMS_ITS | Encounter Summary ---
Author Organization [employer] Address [address] [facility] 7t [place] [address] Care Team Providers Care Portable Sawyer Name Role Phone Rey Soriano MD Primary Care Provide r Reason for Visit * Reason Comments Med Refill Encounter Details Date Type Department Care Team ([facility] st Contact Info) Description 08/12/2023 Refill [facility] [address] [place], [place] [phone] Rey Soriano MD [address] [place], [place] [phone] Pain Social History Tobacco Use Types Packs/Day Years Used Date Smoking Tobacco: Never Smokeless Tobacco: Never PHQ-2 Answer Date Recorded Patient Health Questionnaire-2 Score 0 10/01/2022 Housing Stability Answer Date Recorded What is your housing situation today? I have housing today, but I am worried about losing housing in the future 07/23/[address] you li ve. Do you have problems with any of the following? None of the above 07/23/2023 Food Insecurity Answer Date Recorded Within the [...] as of this encounter Visit Diagnoses Diagnosis Pain Generalized pain documented in this encounter Care Teams Portable Sawyer Relationship Specialty Start Date End Date Rey Soriano MD [address] [place] [address] PCP - General Internal Medicine 07/04/14 documented as of this encounter
--- OUTSIDE RECORDS SUMMARY | 2024-12-16 11:42 | XMS_ITS | Encounter Summary ---
Author Organization [facility] Address [address] [place] [address] 7 [place] [address] Care Team Providers Care Vat Packer Name Role Phone Rey Soriano MD Primary Care Provide r Reason for Visit * Reason Onset Date Comments Nurse Triage 06/23/2023 Encounter Details Date Type Department Care Team (Late st Contact Info) Description 06/23/2023 Telephone [facility]INE [address] [place] [address] Rey Soriano MD [address] [place] [address] Nurse Triage Social History Tobacco Use Types Packs/Day Years [...] AM EDT documented as of this encounter Miscellaneous Notes * Telephone Encounter - Dee Dee Eubanks RN - 06/23/2023 11:18 AM EDT Triage call with [employer] Civil Engineer [place] [id number] Pt didn't answer x2. Left message to call [facility] [phone] Triage call with [employer] Civil Engineer [place] [id number], Pt didn't answer, left voice message to call [facility] [phone] * Telephone Encounter - Dali Chaudhrynez - 06/23/2023 10:47 AM EDT Symptoms: Headache, Fever (105), Cough, Sore Throat Outcome: Schedule a same-day appointment or talk to a nurse or provider today Reason: Caller denied all higher acuity questions The caller accepted this outcome Patient speaks congolese documented in this encounter Plan of Treatment Not on file documented as of this encounter Visit Diagnoses Not on filedocumented in this encounter Care Teams Vat Packer Relationship Specialty Start Date End Date Rey Soriano MD [address] [place] [address] PCP - General Internal Medicine 07/04/14 documented as of this encounter
== END 2024-12-16 09:44 | disposition home or self-care (01) ==
LOC: HO.MAMMO 09:43
PROVIDERS: PCP Internal Medicine; Visit Provider Internal Medicine
DX: Z12.31 Encounter for screening mammogram for malignant neoplasm of breast (principal)
CPT/HCPCS: 77063; 77067

== ENCOUNTER → 2024-12-16 09:45 | Outpatient (BNV) | payer OTHER, SELFPAY | PROVIDERS: PCP Internal Medicine; Visit Provider Internal Medicine | DX: Z12.31 Encounter for screening mammogram for malignant neoplasm of breast (principal) | CPT/HCPCS: 77063; 77067 ==

== ENCOUNTER 2024-12-22 12:24 | Outpatient (REF) | payer OTHER, SELFPAY ==
[2024-12-22 13:38] LABS: MANUAL DIFF FLAG NO
[2024-12-22 13:46] LABS: Basophils Absolute Auto 0.1 X10*3/uL (0.0-0.2); Basophils Percent Auto 0.9 % (0-2); Eosinophils Absolute Auto 0.2 X10*3/uL (0.0-0.4); Eosinophils Percent Auto 3.1 % (0-4); Hemoglobin 10.3 g/dl (12.0-16.0); Imm Gran Abs Auto 0.01 X10*3/uL (0.00-0.03); Imm Gran Pct Auto 0.2 % (0.0-0.4); Lymphocytes Absolute Auto 1.5 X10*3/uL (1.2-4.9); Lymphocytes Percent Auto 26.4 % (20-40); Mean Corpuscular HGB Conc 31.2 g/dl (31.0-35.0); Mean Corpuscular Volume 86.6 fL (80.0-98.0); Mean Platelet Volume 11.8 fL (9.4-12.3); Monocytes Absolute Auto 0.6 X10*3/uL (0.1-1.2); Monocytes Percent Auto 9.4 % (2-11); Neutrophils Absolute Auto 3.5 x10*3/uL (2.0-8.3); Platelet Count 103 X10*3/uL (160-400); Red Blood Count 3.81 X10*6/uL (4.20-5.50); Red Cell Distribution Width 15.2 % (11.0-16.0); White Blood Count 5.8 X10*3/uL (4.8-10.8)
[2024-12-22 14:27] LABS: Alanine Aminotransferase 22 U/L (0-31); Albumin Level 2.9 g/dL (3.5-5.0); Alkaline Phosphatase 158 U/L (39-117); Anion Gap 8 (12-20); Aspartate Amino Transferase 42 U/L (5-31); Bilirubin Total 1.2 mg/dL (0.0-1.0); Blood Urea Nitrogen 9 mg/dL (9-16); Calcium 8.6 mg/dL (8.4-10.2); Carbon Dioxide 25 mmol/L (22-29); Chloride 113 mmol/L (96-108); Estimated Glomerular Filt Rate > 60; Glucose Random 98 mg/dL (60-115); Potassium 3.9 mmol/L (3.3-5.1); Sodium 142 mmol/L (135-145); Total Protein 6.2 g/dL (6.5-8.0)
--- OUTSIDE RECORDS SUMMARY | 2024-12-22 14:48 | XMS_ITS | Encounter Summary ---
Author Organization [facility] Address [address] [place] [address] 7 [place] [address] Care Team Providers Care Endband Cutter Hand Name Role Phone Rey Soriano MD Primary Care Provide r Encounter Details Date Type Department Care Team (Late Contact Info) Description 02/06/2023 Abstract [facility] [address] [place] [address] [phone] Rey Soriano MD [address] [place] [address] [phone] Social History Tobacco Use Types Packs/Day Years [...] as of this encounter Plan of Treatment Upcoming Encounters Date Type Department Care Team (Late st Contact Info) Description 02/08/2025 11:00 AM EDT Office Visit [facility] [address] [place] [phone] Rey Soriano MD [address] [place] [address] documented as of this encounter Procedures Procedure Name Priority Date/Time Associated Diagnosis Comments HM COLONOSCOPY Routine 02/13/2015 8:32 AM EDT documented in this encounter Results * Colonoscopy (02/13/2015 8:32 AM EDT) Colonoscopy Normal Normal Narrative Alpa Concepcion - 02/13/2015 8:32 AM EDT Recommended 10 year follow up per pcp note hyperplastic polyp us Historical Provider [facility] Edited Result - Final documented in this encounter Visit Diagnoses Not on filedocumented in this encounter Care Teams Endband Cutter Hand Relationship Specialty Start Date End Date Rey Soriano MD [address] [place] [address] PCP - General Internal Medicine 07/04/14 documented as of this encounter
--- OUTSIDE RECORDS SUMMARY | 2024-12-22 14:48 | XMS_ITS | Patient Health Record ---
Author Organization [facility] Address [address] [place] [address] Care Team Providers Care Clamp Jig Assembler Name Role Phone Ludy Ellis MD, Rey Primary Care Provide r Unavailable Raj Manuel [phone] Allergies No Known Allergies Results Component Value Reference Range Notes Prothrombin Time INR Reviewed date:07/05/2024 06:13:08 PM Interpretation: Performing Lab:[facility], [address] [place] [phone] Notes/Report: Prothrombin Time 15.6 10.9-12.4 [employer] [...] Pnl Reviewed date:07/11/2024 02:14:42 PM Interpretation: Performing Lab:[facility], [address] [place] [phone] Notes/Report: Liver Fibrosis Score 0.89 Liver Fibrosis [...] a>0.62 and a<=1.00 : A3 (severe activity) VRV-Atbdk-1-Macroglobuli n 282 106-279 mg/dL FIB-Haptoglobin 16 43-212 mg/dL FIB-Apolipoprotein A1 70 101-198 mg/dL FIB-Total Bilirubin 1.3 0.2-1.2 mg/dL FIB-GGT 21 3-65 U/L FIB-ALT 19 6-29 U/L Reference ID [id number] Footnote SEE NOTE The reliability of results is dependent on compliance with the preanalytical and analytical conditions recommended by [employer]. The tests have to be deferred for: [...] The performance characteristics have been determined by [facility]. It has not been cleared or approved by the U.S. Food and Drug Administration. Performance characteristics refer to the analytical performance of the test. The Trade Desk, the associated logo, [employer] and all associated [employer]den are the registered trademarks of [employer]. All third libertarian oden - (R) and (TM) - are the property of their respective owners. (C) 7514-7118 [employer]. All rights reserved. THIS TEST WAS PERFORMED AT: [facility] [place] [address] [place] [address] VERONIKA DELONG MD,PHD,LAURA MR abdomen wo/w con Reviewed date:03/01/2024 11:38:03 PM Interpretation: Performing Lab: Notes/Report: [address] [address] Magnetic Resonance Report Signed Patient: Carissa Killian MR#: [id number] : 1965 Acct:[id number] Age/Sex: 58 / F ADM Date: 01/15/24 Loc: .MRI Attending Dr: Raj Manuel MD Ordering Physician: Raj Manuel Date of Service: 01/15/24 Procedure(s): MR abdomen wo/w con Accession Number(s): [id number] cc: Rey Bess MD; Raj Manuel EXAMINATION: [...] in OV> 01/27/24 1532 DD/ 1017 TD/TT: Fishing Hand: [address] [address] Magnetic Resonance Report Signed Patient: Susan Killian MR#: [id number] : 1965 Acct:[id number] Age/Sex: 58 / F ADM Date: 01/15/24 Loc: HO.MRI Attending Dr: Raj Manuel MD Ordering Physician: Raj Manuel Date of Service: 01/15/24 Procedure(s): MR abdomen wo/w con Accession Number(s): [id number] cc: Rey Bess MD; Raj Manuel EXAMINATION: [...] in OV> 01/27/24 1532 DD/ 1017 TD/TT: Fishing Hand: Complete Blood Count Auto Di ff Reviewed date:07/05/2024 06:12:47 PM Interpretation: Performing Lab:[address] [address] Notes/Report: White Blood Count 7.6 4.8-10.8 X10*3/uL [...] Panel Reviewed date:07/05/2024 06:13:00 PM Interpretation: Performing Lab:[facility], [address] [place] [phone] Notes/Report: Bilirubin Total 1.4 0.0-1.0 mg/dL Bilirubin Direct 0.6 0.0-0.5 mg/dL Slight Hem olysis Aspartate Amino Transferase 45 5-31 U/L Slight Hemolysis Alanine Aminotransferase 21 0-31 U/L Total Protein 6.6 6.5-8.0 g/dL Albumin Level 3.1 3.5-5.0 g/dL Alkaline Phosphatase 164 39-117 U/L Alpha Fetoprotein Reviewed date:07/19/2024 01:06:12 PM Interpretation: Performing Lab:[facility], [address] [place] [phone] Notes/Report: Alpha Fetoprotein 6.9 Reference Range: <6.1 The use of AFP as a tumor marker in females is not recommended. This test was performed using the Sharmaine Indian chemiluminescent method. Values obtained from different assay methods cannot be used interchangeably. AFP levels, regardless of value, should not be interpreted as absolute evidence of the presence or absence of disease. THIS TEST WAS PERFORMED AT: [facility] [address] [place] [phone] RACHAEL LAW MD Blood Urea Nitrogen Reviewed date:07/26/2024 11:02:34 PM Interpretation: Performing Lab:[facility], [address] [place] [phone] Notes/Report: Blood Urea Nitrogen 8 9-16 mg/dL Creatinine Reviewed date:07/26/2024 11:02:43 PM Interpretation: Performing Lab:[address] [address] Notes/Report: Creatinine 0.75 0.5-1.4 mg/dL Estimated Glomerular Filt Rate > 60 NOTE: For -[place] individuals, multiply the result by 1.210. Chronic Kidney Disease: Estimated GFR < 60 mL/min/1.73m2 Severe Kidney Disease: Estimated GFR < 15 mL/min/1.73m2 MR abdomen wo/w con Reviewed date:09/26/2024 01:24:09 PM Interpretation: Performing Lab: Notes/Report: [address] [place] [address] Magnetic Resonance Report Signed Patient: Carissa Killian MR#: [id number] : 1965 Acct:[id number] Age/Sex: 59 / F ADM Date: 07/27/24 Loc: HO.MRI Attending Dr: Raj Manuel MD Ordering Physician: Raj Manuel MD Date of Service: 07/27/24 Procedure(s): MR abdomen wo/w con Accession Number(s): [id number] cc: Rey Bess MD; Raj Manuel MD [...] ascites. Overall stable. Electronically signed by: Andrea Steve MD 09/22/2024 03:49 PM EST Dictated By: Andrea Thomson MD Signed By: <Electronically signed by Andrea Singer MD in OV> 09/22/24 1549 DD/ 1126 TD/TT: 07/27/24 1146 Fishing Hand: [address] [address] Magnetic Resonance Report Signed Patient: Susan Killian MR#: [id number] : 1965 Acct:[id number] Age/Sex: 59 / F ADM Date: 07/27/24 Loc: HO.MRI Attending Dr: Raj Manuel MD Ordering Physician: Raj Manuel MD Date of Service: 07/27/24 Procedure(s): MR abdomen wo/w con Accession Number(s): [id number] cc: Rey Bess MD; Raj Manuel MD [...] 09/22/24 1549 DD/ 1126 TD/TT: 07/27/24 1146 Fishing Hand: Reason For Referral No Information Medications Medication [...] Status Risk Notes Problem Colon cancer screening (683498869) Colon cancer screening (Z12.11) Active confirmed Problem Epigastric pain (59413485) Epigastric abdominal pain (R10.13) Active confirmed Problem Diverticular disease of colon (618477090) Diverticulosis of large intestine without perforation or abscess without bleeding (K57.30) Active confirmed Problem GARVEY - Nonalcoholic steatohepatitis (369518153) Nonalcoholic steatohepatitis (GARVEY) (K75.81) Active confirmed Problem Gastroesophageal reflux disease (809742758) Gastroesophageal reflux disease (K21.9) Active confirmed Problem 511088622 Elevated liver function tests (R79.89) Active confirmed Problem 589642298 Fatty liver (K76.0) Active confirmed Problem Cirrhotic (642051720) Cirrhosis (K74.60) Active confirmed Problem Serum alpha-fetoprotein level elevated (452501138) 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) Active confirmed Problem Abnormal findings diagnostic imaging of liver and biliary tract (237852729) Abnormal MRI, liver (R93.2) Active confirmed Problem 005351628 LUCÍA positive (R76.8) Active confirmed Problem Portal fibrosis without cirrhosis (640224105) Liver fibrosis (K74.00) Active confirmed Vital Signs Blood pressure diastolic 00 mm Hg 07/06/2024 Height 64 in 07/06/2024 Blood pressure systolic 00 mm Hg 07/06/2024 Weight 177 lbs 07/06/2024 BMI 30.38 kg/m2 07/06/2024 Encounters Encounter Location Date Provider Diagnosis [facility] Outpatient [address] [place] [phone] 03/03/2024 Raj Manuel Encounter for screen ing colonoscopy Z12.11 ; Colon polyps K63.5 ; Diverticulosis of large intestine without perforation or abscess without bleeding K57.30 ; Other hemorrhoids K64.8 ; Gastroesophageal reflux disease K21.9 ; Hiatal hernia K44.9 ; Other diseases of stomach and duodenum K31.89 ; Cirrhosis K74.60 and Abdominal pain R10.9 [facility] [address] [place] [address] 07/06/2024 Raj Manuel Fatty liver K76.0 ; Cirrhosis K74.60 ; Elevated liver function tests R79.89 ; Gastroesophageal reflux disease K21.9 ; Colon cancer screening Z12.11 ; Elevated alpha fetoprotein R77.2 and Abnormal MRI, liver R93.2 [facility] [address] [place] [address] 03/04/2024 Raj Manuel [facility] [address] [place] [phone] 03/10/2024 Raj Manuel [facility] [address] [place] [phone] 04/05/2024 Raj Manuel [facility] [address] [place] [address] 06/29/2024 Raj Manuel Cirrhosis K74.60 and Nonalcoholic steatohepatitis (GARVEY) K75.81 [facility] [address] [place] [address] 07/19/2024 Raj Manuel Assessments Encounter Date Diagnosis [...] Date BUN 07/06/2024 BUN 12/09/2023 LIVER PROFILE 11/16/2021 LIVER PROFILE 12/22/2022 LIVER PROFILE 12/30/2021 LIVER PROFILE 12/09/2023 LIVER PROFILE 07/29/2023 LIVER PROFILE 10/23/2022 LIVER PROFILE 11/22/2021 LIVER PROFILE 06/29/2024 LIVER PROFILE 07/16/2022 GGT 11/22/2021 IRON + IBC (FE) 11/16/2021 CBC w DIFF 11/22/2021 CBC w DIFF 12/09/2023 CBC w DIFF 07/29/2023 CBC w DIFF 11/16/2021 CBC w DIFF 10/23/2022 CBC w DIFF 06/29/2024 PROTHROMBIN TIME (PT, INR) 11/22/2021 PROTHROMBIN TIME (PT, INR) 11/16/2021 PARTIAL THROMBOPLASTIN TIME (PTT) 2021 [id number] (A1A) 11/16/2021 ALPHA-FETOPROTEIN,TUMOR MARKER 4 ALPHA-FETOPROTEIN,TUMOR MARKER 3 LIVER KIDNEY MICROSOMAL AB (LKM AB) 10/06 MRI ABD W&WO CONTRAST 07/06/2024 MRI ABD W&WO CONTRAST 12/09/2023 US LIVER BIOPSY CORE GUIDE 11/22/2021 FLUOR. ANTINUCLEAR AB SCREEN (YARED) 10/06 FLUOR. ANTINUCLEAR AB SCREEN (YARED) 11/06 FLUOR. ANTINUCLEAR AB SCREEN (YARED) 07/06 HCV LIVER FIBROSIS, FIBRO TEST 2 Prothrombin Time INR 07/29/2023 Prothrombin Time INR 10/23/2022 Creatinine 07/06/2024 Liver Fibrosis Pnl 07/29/2023 Liver Fibrosis Pnl 10/23/2022 Protein Electrophoresis, Serum 2 Mitochondrial Antibody 10/23/2022 Smooth Muscle Antibody 10/23/2022 US abdomen comp w elastography 3 Future Test Test Name Order Date UPPER GI ENDOSCOPY 12/09/2023 COLONOSCOPY 12/09/2023 Next Appt Details Provider Name:Raj Buitrago Manuel , 02/04/2025 01:00:00 PM, [address] [place] [address], [address], [place], [address], Insurance Providers Payer Name Payer Address Payer Phone Subscriber Number Group Number Insured Name Patient Relationship to Insured Coverage Start Date Coverage End Date [facility] [address] Attn Claims [place] [id number] CARISSA KILLIAN Self - patient is the [...] followed by Dr. Justin Crook at [facility] Hepatology Dept. Hyperlipidemia Denies OK,DM,CVA,Lung disease,renal dise ase Colonoscopy age 49-Dr. Sindhu [...]
--- OUTSIDE RECORDS SUMMARY | 2024-12-22 14:48 | XMS_ITS | Encounter Summary ---
Author Organization [employer] Address [address] [place] [address] [place] [address] Care Team Providers Care Gm Video Name Role Phone Rey Soriano MD Primary Care Provide r Reason for Visit * Reason Comments Foot Swelling Encounter Details Date Type Department Care Team ([facility] st Contact Info) Description 12/22/2024 11:00 AM EDT Office Visit [facility] [address] [place] [address] Oliver Ford CNP [address] [place] [address] Other cirrhosis of liver (CMS/HCC) (Primary Dx) Social History Tobacco Use Types Packs/Day Years Used Date Smoking Tobacco: Never Smokeless Tobacco: Never Alcohol Use Standard Drinks/Week Comments Never 0 (1 standard drink = 0.6 oz pur e alcohol) PHQ-2 Answer Date Recorded Patient Health Questionnaire-2 Score 0 10/01/2022 Housing Stability Answer Date Recorded What is your housing situation today? I have lana sandhu 10/01/[address] you [...] AM EDT documented as of this encounter Last Filed Vital Signs Vital Sign Reading Time Taken Comments Blood Pressure 116/62 12/22/2024 10:51 AM EDT Pulse 86 12/22/2024 10:51 AM EDT Temperature 36.9 ??C (98.4 ??F) 12/22/2024 10:51 AM E DT Respiratory Rate 16 12/22/2024 10:51 AM EDT Oxygen Saturation 98% 12/22/2024 10:51 AM EDT Inhaled Oxygen Concentration - - Weight 85.3 kg (188 lb) 12/22/2024 10:51 AM EDT Height - - Body Mass Index 35.52 05/25/2024 11:58 AM EDT documented in this encounter Progress Notes * Oliver Ford CNP - 12/22/2024 11:00 AM EDT Subjective Patient ID: Carissa Winslow is a 59 y.o. female who presents for sick onsite. Pt reporting foot/ankle swelling bilaterally, no accident or injury. Reports swelling worse at night and when she walks orsits down for extended periods of time. She reports that she notices swelling subsides when she elevates her legs. She reports that her ankle joints are also tender when she walks. Denies SOB, CP, recent unintended weight gain, abdominal pain, nausea, vomiting, diarrhea. Last OV with GI 07/2024 for f/u for liver cirrhosis-Dr. Manuel Pt had pending fibrosis score and carole fetoprotein at this time. Per note: Pt on ursodiol for liver disease w/ cirrhosis and f/u anticipated for the spring 2024, Plan to obtain updated liver MRI. Review of Systems Constitutional: Negative for chills, fatigue and fever. Respiratory: Negative for cough, chest tightness, shortness of breath and wheezing. Cardiovascular: Positive for leg swelling. Negative for chest pain. Gastrointestinal: Negative for abdominal pain, diarrhea, nausea and vomiting. Musculoskeletal: Negative for arthralgias, back pain and joint swelling. Skin: Negative for color change. Neurological: Negative for dizziness, weakness, light-headedness and headaches. Objective Vitals: 12/22/24 1051 BP: 116/62 Pulse: 86 Resp: 16 Temp: 98.4 ??F (36.9 ??C) SpO2: 98% Physical Exam Constitutional: Appearance: Normal appearance. She is normal weight. HENT: Head: Normocephalic and atraumatic. Eyes: General: No scleral icterus. Conjunctiva/sclera: Conjunctivae normal. Pupils: Pupils are equal, round, and reactive to light. Cardiovascular: Rate and Rhythm: Normal rate and regular rhythm. Pulses: Normal pulses. Dorsalis pedis pulses are 2+ on the right side and 2+ on the left side. Posterior tibial pulses are 2+ on the right side and 2+ on the left side. Heart sounds: Normal heart sounds. No murmur heard. No friction rub. No gallop. Pulmonary: Effort: Pulmonary effort is normal. No respiratory distress. Breath sounds: Normal breath sounds. No wheezing or rales. Abdominal: General: Bowel sounds are normal. There is no distension. Palpations: Abdomen is soft. There is no shifting dullness, fluid wave, hepatomegaly or mass. Tenderness: There is no abdominal tenderness. There is no right CVA tenderness, left CVA tenderness, guarding or rebound. Musculoskeletal: General: Swelling present. Right lower leg: No edema. Left lower leg: No edema. Right foot: Normal range of motion. Swelling present. No tenderness. Normal pulse. Left foot: Normal range of motion. Swelling present. No tenderness. Normal pulse. Comments: Negative calf tenderness, negative alida's sign Feet: Right foot: Skin integrity: Skin integrity normal. Toenail Condition: Right toenails are normal. Left foot: Skin integrity: Skin integrity normal. Toenail Condition: Left toenails are normal. Comments: +pedal non pitting edema bilaterally Skin: General: Skin is warm. Coloration: Skin is not jaundiced. Findings: No bruising or lesion. Neurological: General: No focal deficit present. Mental Status: She is alert and oriented to person, place, and time. Psychiatric: Mood and Affect: Mood normal. Behavior: Behavior normal. Thought Content: Thought content normal. Judgment: Judgment normal. Assessment/Plan Problem List Items Addressed This Visit Other cirrhosis of liver (CMS/HCC) - Primary Relevant Orders Comprehensive Metabolic Panel CBC auto differential Urinalysis, Complete, with Reflex to Culture POCT Urinalysis (Completed) Physical exam wnl, pt does not appear fluid overloaded Ordered U/A to r/o proteinuria and pt came back out of restroom to report she noticed blood in her urine. U/A pos for trace blood and trace protein. Ordered CMP, CBC to r/o infection Will f/u with pt lab results and determine need for diuretic considering 3 day course of 20 mg lasix. ED precautions discussed. F/u with PCP as soon as available for chronic conditions. documented in this encounter Plan of Treatment Upcoming Encounters Date Type Department Care Team (Late st Contact Info) Description 02/08/2025 11:00 AM EDT Office Visit [facility] [address] [place] [address] Rey Soriano MD [address] [place] [address] Scheduled Orders Name Type Priority Associated Diagnoses Orde r Schedule Urinalysis, Complete, with Reflex to Culture Lab Routine Other cirrhosis of liver (CMS/HCC) Expected: 12/22/2024 (Approximate), Expires: 12/22/2025 documented as of this encounter Procedures Procedure Name Priority Date/Time Associated Diagnosis Comments CBC WITH AUTO DIFFERENTIAL Routine 12/22/2024 12:30 PM EDT Other cirrhosis of liver (CMS/HCC) COMPREHENSIVE METABOLIC PANEL Routine 12/22/2024 12:30 PM EDT Other cirrhosis of liver (CMS/HCC) POCT URINALYSIS DIPSTICK Routine 12/22/2024 12:03 PM EDT Other cirrhosis of liver (CMS/HCC) documented in this encounter Results * (ABNORMAL) CBC auto differential (12/22/2024 12:30 PM EDT) White Blood Count 5.8 4.8 - 10.8 X10*3/uL [facility] Red Blood Count 3.81(L) 4.20 - 5.50 X10*6/uL [facility] Hemoglobin 10.3(L) 12.0 - 16.0 g/dl [facility] Hematocrit 33.0(L) 37.0 - 47.0 % [facility] Mean Corpuscular Volume 86.6 80.0 - 98.0 fL [facility] Mean Corpuscular Hemoglobin 27.0 27.0 - 33.0 pg [facility] Mean Corpuscular HGB Conc 31.2 31.0 - 35.0 g/dl [facility] Red Cell Distribution Width 15.2 11.0 - 16.0 % [facility] Platelet Count 103(L) 160 - 400 X10*3/uL [facility] Mean Platelet Volume 11.8 9.4 - 12.3 fL [facility] Neutrophils Percent Auto 60.0 45 - 73 % [facility] Imm Gran Pct Auto 0.2 0.0 - 0.4 % [facility] Lymphocytes Percent Auto 26.4 20 - 40 % [facility] Monocytes Percent Auto 9.4 2 - 11 % [facility] Eosinophils Percent Auto 3.1 0 - 4 % [facility] Basophils Percent Auto 0.9 0 - 2 % [facility] NRBC Pct Auto 0.0 0.0 - 0.2 /100WBC [facility] Neutrophils Absolute Auto 3.5 2.0 - 8.3 x10*3/uL [facility] Imm Gran Abs Auto 0.01 0.00 - 0.03 X10*3/uL [facility] Lymphocytes Absolute Auto 1.5 1.2 - 4.9 X10*3/uL [facility] Monocytes Absolute Auto 0.6 0.1 - 1.2 X10*3/uL [facility] Eosinophils Absolute Auto 0.2 0.0 - 0.4 X10*3/uL [facility] Basophils Absolute Auto 0.1 0.0 - 0.2 X10*3/uL [facility] NRBC Abs Auto 0.000 0.0 - 0.012 X10*3/uL [facility] Blood Venous blood specimen / Unknown 12/22/2024 12:30 PM EDT 12/22/2024 1:33 PM EDT Oliver Ford [facility] LAB BLOOD ORDERABLES Bharti l Result [facility] [address] [place], [place] [phone] * (ABNORMAL) Comprehensive Metabolic Panel (12/22/2024 12:30 PM EDT) Sodium 142 135 - 145 mmol/L [facility] Potassium 3.9 3.3 - 5.1 mmol/L [facility] Chloride 113(H) 96 - 108 mmol/L [facility] Carbon Dioxide 25 22 - 29 mmol/L [facility] Anion Gap 8(L) 12 - 20 [facility] Urea Nitrogen (BUN) 9 9 - 16 mg/dL [facility] Creatinine, Serum 0.65 0.5 - 1.4 mg/dL [facility] Estimated Glomerular Filt Rate >60 [facility] Comment:Chronic Kidney Disea se: Estimated GFR < 60 mL/min/1.03p3Ycdgws Kidney Disease: Estimated GFR < 15 mL/min/1.73m2 Glucose 98 60 - 115 mg/dL [facility] Calcium 8.6 8.4 - 10.2 mg/dL [facility] Bilirubin, Total 1.2(H) 0.0 - 1.0 mg/dL [facility] Aspartate Amino Transferase 42(H) 5 - 31 U/L [facility] Alanine Aminotransferase 22 0 - 31 U/L [facility] Total Protein 6.2(L) 6.5 - 8.0 g/dL [facility] Albumin Level 2.9(L) 3.5 - 5.0 g/dL [facility] Alkaline Phosphatase 158(H) 39 - 117 U/L [facility] Blood Venous blood specimen / Unknown 12/22/2024 12:30 PM EDT 12/22/2024 1:50 PM EDT [facility] LAB BLOOD ORDERABLES Bharti l Result [facility] [address] [place] [phone] * (ABNORMAL) POCT Urinalysis (12/22/2024 12:03 PM EDT) Color, UA Elma Clarity, UA Clear Glucose, UA Negative Bilirubin, UA Negative Ketones, UA Negative Spec Grav, UA 1.025 Blood, UA Positive(A) Negative, None Detected pH, UA 6.0 Protein, UA Trace Urobilinogen, UA 1.0 Leukocytes, UA Negative Negative, Rare, Trace Nitrite, UA Negative Negative, None Detected Appearance, UA Elma QC Media Lot # [id number] Lot# Expiration Date [id number] Urine 12/22/2024 12:0 3 PM EDT [facility] POINT OF CARE TEST ENTER/ EDIT ORDERABLES Final Result documented in this encounter Visit Diagnoses Diagnosis Other cirrhosis of liver (CMS/HCC)- Primary documented in this encounter Care Teams Gm Video Relationship Specialty Start Date End Date Rey Soriano MD [address] [place] [phone] PCP - General Internal Medicine 07/04/14 documented as of this encounter
--- OUTSIDE RECORDS SUMMARY | 2024-12-22 14:48 | XMS_ITS | Encounter Summary ---
Author Organization [employer] Address [address] [facility] 7t [place] [address] Care Team Providers Care Finished Stock Inspector Name Role Phone Rey Soriano MD Primary Care Provide r Reason for Visit * Reason Onset Date Comments Nurse Triage 12/20/2024 Encounter Details Date Type Department Care Team ([facility] st Contact Info) Description 12/20/2024 Telephone [facility] [address] [place] [address] Rey Soriano MD [address] [place], [place] [phone] Nurse Triage Social History Tobacco Use Types [...] encounter Miscellaneous Notes * Telephone Encounter - Indigo Samuel LPN - 12/20/2024 12:06 PM EDT Triage call returned with BLS # [id number] Nivia.Patient reports that she has increased swelling of both feet. No accident or injury. Swelling improves overnight ans worsens late day no shortness of breath or chest pain at time of call. No other swelling noted. Patient concerned with underlying liverissues. Disposition reviewed and patient in agreement with plan ADRIEN/Wili MCQUEEN on 12/22/24 11am. Reviewed with patient home care recommendations, reasons to call back and symptoms that require immediate evaluation in UC or ER. Patient verbalized understanding and agrees. Protocol Used: Ankle Swelling (Adult) Protocol-Based Disposition: See in Office or Video Visit within 3 Days Positive Triage Question: * Moderate ankle swelling (e.g., can't move joint normally, interferes with normal activities) (Exceptions: Itchy, localized swelling; swelling is chronic.) * All higher-acuity triage questions were negative Care Advice Discussed: * Reasons To Call Back - You become worse * Telephone Encounter - Alvaro Merino - 12/20/2024 11:58 AM EDT Symptom: Foot or Ankle Swelling Outcome: Schedule an urgent appointment (within 1 hour) or talk to a nurse or provider soon Reason: Trouble walking The caller accepted this outcome. documented in this encounter Plan of Treatment Upcoming Encounters Date Type Department Care Team (Late st Contact Info) Description 02/08/2025 11:00 AM EDT Office Visit [facility] [address] [place] [address] Rey Soriano MD [address] [place] [address] documented as of this encounter Visit Diagnoses Not on filedocumented in this encounter Care Teams Finished Stock Inspector Relationship Specialty Start Date End Date Rey Soriano MD [address] [place] [phone] PCP - General Internal Medicine 07/04/14 documented as of this encounter
--- OUTSIDE RECORDS SUMMARY | 2024-12-22 14:48 | XMS_ITS | Encounter Summary ---
Author Organization [employer] Address [address] [facility] 7t [place] [address] Care Team Providers Care Campaign Associate Name Role Phone Rey Soriano MD Primary Care Provide r Encounter Details Date Type Department Care Team (Latest Contact Info) Description 12/22/2024 Travel Social History Tobacco Use Types Packs/Day Years [...] Description 02/08/2025 11:00 AM EDT Office Visit [facility] [address] [place] [address] Rey Soriano MD [address] [place] [address] documented as of this encounter Visit Diagnoses Not on filedocumented in this encounter Care Teams Campaign Associate Relationship Specialty Start Date End Date Rey Soriano MD [address] [place] [address] PCP - General Internal Medicine 07/04/14 documented as of this encounter
--- OUTSIDE RECORDS SUMMARY | 2024-12-22 14:48 | XMS_ITS ---
Author Organization [facility] Address [address] [place] [address] Care Team Providers Care Program Director/Morning Show Host Name Role Phone Ludy Ellis MD, Rey Primary Care Provide Raj Mireles [phone] Results Component Value Reference Range Notes Prothrombin Time INR Reviewed date:07/05/2024 06:13:08 PM Interpretation: Performing Lab:[facility], [address] [place] [phone] Notes/Report: Prothrombin Time 15.6 10.9-12.4 [employer] [...] Pnl Reviewed date:07/11/2024 02:14:42 PM Interpretation: Performing Lab:[facility], [address] [place] [phone] Notes/Report: Liver Fibrosis Score 0.89 Liver Fibrosis [...] a>0.62 and a<=1.00 : A3 (severe activity) UOP-Atloa-5-Macroglobulin 282 106-279 mg/dL FIB-Haptoglobin 16 43-212 mg/dL FIB-Apolipoprotein A1 70 101-198 mg/dL FIB-Total Bilirubin 1.3 0.2-1.2 mg/dL FIB-GGT 21 3-65 U/L FIB-ALT 19 6-29 U/L Reference ID [id number] Footnote SEE NOTE The reliability of results is dependent on compliance with the preanalytical and analytical conditions recommended by [employer]. The tests have to be deferred for: [...] The performance characteristics have been determined by [employer]. It has not been cleared or approved by the U.S. Food and Drug Administration. Performance characteristics refer to the analytical performance of the test. [employer] the associated logo, [employer] and all associated [employer] oden are the registered trademarks of [employer]. All third republican oden - (R) and (TM) - are the property of their respective owners. (C) 1936-8005 [employer]. All rights reserved. THIS TEST WAS PERFORMED AT: [employer] [facility] [address] [place] [address] VERONIKA DELONG MD,PHD,LAURA REASON FOR VISIT LABS Problems Problem Type SNOMED Code ICD Code Onset Dates Problem Status W/U Status Risk Notes Problem GARVEY - Nonalcoholic steatohepatitis (705396029) Nonalcoholic steatohepatitis (GARVEY) (K75.81) Active confirmed Encounters Encounter Location Date Provider Diagnosis [facility] [address] [place] [address] 06/29/2024 Raj Manuel Cirrhosis K74.60 and Nonalcoholic [...] 01:00:00 PM, [address], [address], [place], [address], Progress Notes * FAY KILLIAN EDOB: [birth year] (59 yo F)Acc No.[id number]:06/29/2024 Patient:?FAY KILLIAN :1965???Age:59 Y???Sex:Female Address:[address] [place] [address], [place], [address] Subjective: * Chief Complaints: * ???LABS * [...] true * Date:? Generated for Eli pina/Murtaza/eTransmitting on:?12/22/2024 02:48 PM EDT
--- OUTSIDE RECORDS SUMMARY | 2024-12-22 14:49 | XMS_ITS | Encounter Summary ---
Author Organization [facility] [facility] Address [address] [place] [address] 7t [place] [address] Care Team Providers Care Hand Rounder Name Role Phone Rey Soriano MD Primary Care Provide r Encounter Details Date Type Department [facility] Team ([facility] Contact [facility] Description 09/23/2022 Telephone [facility] MED[facility] [address] [place] [phone] Rey Soriano MD [address] [place] [phone] Social History Tobacco Use Types Packs/Day Years [...] Upcoming Encounters Date Type Department Care Team ([facility] Contact Info) Description 02/08/2025 11:00 AM EDT Office Visit [facility] [address] [place] [phone] Rey Soriano MD [address] [place], [place] [phone] documented as of this encounter Visit Diagnoses Not on filedocumented in this encounter Care Teams Hand Rounder Relationship Specialty Start Date End Date Rey Soriano MD [address] [place] [address] PCP - General Internal Medicine 07/04/14 documented as of this encounter
--- OUTSIDE RECORDS SUMMARY | 2024-12-22 14:49 | XMS_ITS | Encounter Summary ---
Author Organization [employer] Address [address] [facility] 7t [place] [address] Care Team Providers Care Phlebotomy Coordinator Name Role Phone Rey Soriano MD Primary Care Provide r Reason for Visit * Reason Comments Med Refill Encounter Details Date Type Department Care Team ([facility] st Contact Info) Description 08/12/2023 Refill [facility] [address] [place], [place] [phone] Rey Soriano MD [address] [place], [place] [phone] Pain Social History Tobacco Use Types Packs/Day [...] Description 02/08/2025 11:00 AM EDT Office Visit [facility] [address] [place] [address] Rey Soriano MD [address] [place] [phone] documented as of this encounter Visit Diagnoses Diagnosis Pain Generalized pain documented in this encounter Care Teams Phlebotomy Coordinator Relationship Specialty Start Date End Date Rey Soriano MD [address] [place] [address] PCP - General Internal Medicine 07/04/14 documented as of this encounter
--- OUTSIDE RECORDS SUMMARY | 2024-12-22 14:49 | XMS_ITS | Encounter Summary ---
Author Organization [employer] [facility] Address [address] [place] [address] 7 [place] [address] Care Team Providers Care Student Activities Director Name Role Phone Rey Soriano MD Primary Care Provide r Reason for Visit * Reason Onset Date Comments Nurse Triage 06/23/2023 Encounter Details Date Type Department Care Team (Late st Contact Info) Description 06/23/2023 Telephone [facility] [address] [place] [address] Rey Soriano MD [address] [place] [address] Nurse Triage Social History Tobacco Use Types [...] 06/23/2023 11:18 AM EDT Triage call with [place]ango Sales Recruiting Coordinator ID [id number] Pt didn't answer x2. Left message to call [facility] [phone] Triage call with Bryant Sales Recruiting Coordinator [place] [id number], Pt didn't answer, left voice message to call [facility] [phone] * Telephone Encounter - Dali Ribeiro - 06/23/2023 10:47 AM EDT Symptoms: Headache, Fever (105), Cough, Sore Throat Outcome: Schedule a same-day appointment or talk to a nurse or provider today Reason: Caller denied all higher acuity questions The caller accepted this outcome Patient speaks bangladeshi documented in this encounter Plan of Treatment Upcoming Encounters Date Type Department Care Team (Late st Contact Info) Description 02/08/2025 11:00 AM EDT Office Visit [facility] [address] [place] [phone] Rey Soriano MD [address] [place] [phone] documented as of this encounter Visit Diagnoses Not on filedocumented in this encounter Care Teams Student Activities Director Relationship Specialty Start Date End Date Rey Soriano MD [address] [place] [phone] PCP - General Internal Medicine 07/04/14 documented as of this encounter
--- OUTSIDE RECORDS SUMMARY | 2024-12-22 14:49 | XMS_ITS | Clinical Summary ---
Author Organization [employer] Address [address] [place] [address] 7t [place] [address] Care Team Providers Care Oil Drilling Engineer Name Role Phone Rey Soriano MD Primary [...] MG capsule daily. Acti ve sodium chloride ([place] Nasal [place]) 0.65 % nasal sprayIndications:N angus congestion 1-2 [...] Under the care of liver clinic at [facility] Dr Justin Crook Elevated antinuclear antibody (LUCÍA) [...] sexually active pre-menopausal Pt was evaluated by [facility]'s eaton who recommended to proceed with Transvaginal US [...] the care of Dr Justin Rehman at [facility]. Last seen in 2022 had EGD that [...] HIV being followed by PrEP navigator at [facility] health care 10/01/2022 Assessment & Plan (07/01/2023 [...] personal goal for weight loss. Seen by Design Quality Engineer twice Will repeat Lipid profile Assessment & [...] personal goal for weight loss. Seen by Design Quality Engineer twice Microscopic hematuria 07/06/2012 Assessment & Plan [...] Encounters Date Type Department Care Team Description 12/22/2024 11:00 AM EDT Office Visit [facility] MEDICINE [address] [place] [address] Oliver Ford, RICHAR Other cirrhosis of liver (CMS/HCC) (Primary Dx) 12/22/2024 Travel 12/20/2024 Telephone [facility] [address] [place] [address] Rey Soriano MD Nurse Triage 12/02/2024 Telephone [facility] OPTOMETRY [address] [place] [address] Saira Ashton, OD 10/21/2024 12:10 PM EST Immunization [facility] [address] [place] [address] Ashley Norwood RN Encounter for immunization 10/21/2024 Travel from Last 3 Months Immunizations Name Administration [...] (188 lb) 12/22/2024 10:51 AM EDT Height 154.9 cm (5' 1 ) 05/25/2024 11:58 AM EDT Body Mass Index 35.52 05/25/2024 11:58 AM EDT Plan of Treatment Upcoming Encounters Date Type Department Care Team (Late st Contact Info) Description 02/08/2025 11:00 AM EDT Office Visit [facility] [address] [place] [address] Rey Soriano MD [address] [place] [address] Health Maintenance Due Date Last Done Comments CT Colonography 1965 FIT DNA/Cologuard 1965 FIT 1965 FOBT 1965 Sigmoidoscopy 1965 Alcohol/Substance Use Screening 1976 Pneumococcal Vaccine: 50+ Years (1 of 2 - PCV) 02/16/1983 Depression Screening 10/01/2023 10/01/2022, 10/01/20 22 RSV Patients and Patients Aged 60 years or older (1 - Risk 60-74 years 1-dose series) 2024 COVID-19 Vaccine (4 - 2024-25 season) 2024 09/17/2021, 12/19/2020, 11/21/2020 SDOH Screening 10/28/2024 10/28/2023 DTaP/Tdap/Td Vaccines (2 - Td or Tdap) 12/06/2024 12/06/2014, 09/06/2004 Colonoscopy 02/13/2025 02/13/2015 Colorectal Cancer Screening 02/13/2025 Mammogram 12/03/2025 12/03/2023, 11/07, 11/23/2021, Additional history exists Tobacco Screening 12/22/2025 12/22/2024 Cervical Cancer Screening 11/28/2027 HPV/Cotest 11/28/2027 11/28/2022 [...] PM EDT Other cirrhosis of liver (CMS/HCC) BI MAMMOGRAM SCREENING TOMOSYNTHESIS BILATERAL Routine 12/03/2023 11:05 AM EST LIPID PANEL WITH REFLEX TO DIRECT LDL Routine 07/07/2023 9:16 AM EDT Mixed hyperlipidemia HM PAP/HPV Routine 11/28/2022 ZZZ HISTORICAL HEPATITIS C AB W/REFL TO HCV RNA, QN, PCR Routine 07/02/2021 9:13 AM EDT HIV 1/2 ANTIGEN/ANTIBODY, FOURTH GENERATION W/RFL Routine 07/02/2021 9:13 AM EDT HM COLONOSCOPY Routine 02/13/2015 8:32 AM EDT from Last 3 Months or Most Recently Relevant to Health Maintenance Results * (ABNORMAL) CBC auto differential (12/22/2024 12:30 PM EDT) White Blood Count 5.8 4.8 - 10.8 X10*3/uL [facility] Red Blood Count 3.81(L) 4.20 - 5.50 X10*6/uL [facility] Hemoglobin 10.3(L) 12.0 - 16.0 g/dl [facility] Hematocrit 33.0(L) 37.0 - 47.0 % [facility] Mean Corpuscular Volume 86.6 80.0 - 98.0 fL [facility] Mean Corpuscular Hemoglobin 27.0 27.0 - 33.0 pg [facility] Mean Corpuscular HGB Conc 31.2 31.0 - 35.0 g/dl [facility] Red Cell Distribution Width 15.2 11.0 - 16.0 % [facility] Platelet Count 103(L) 160 - 400 X10*3/uL [facility] Mean Platelet Volume 11.8 9.4 - 12.3 fL [facility] Neutrophils Percent Auto 60.0 45 - 73 % [facility] Imm Gran Pct Auto 0.2 0.0 - 0.4 % [facility] Lymphocytes Percent Auto 26.4 20 - 40 % [facility] Monocytes Percent Auto 9.4 2 - 11 % [facility] Eosinophils Percent Auto 3.1 0 - 4 % [facility] Basophils Percent Auto 0.9 0 - 2 % [facility] NRBC Pct Auto 0.0 0.0 - 0.2 /100WBC [facility] Neutrophils Absolute Auto 3.5 2.0 - 8.3 x10*3/uL [facility] Imm Gran Abs Auto 0.01 0.00 - 0.03 X10*3/uL [facility] Lymphocytes Absolute Auto 1.5 1.2 - 4.9 X10*3/uL [facility] Monocytes Absolute Auto 0.6 0.1 - 1.2 X10*3/uL [facility] Eosinophils Absolute Auto 0.2 0.0 - 0.4 X10*3/uL [facility] Basophils Absolute Auto 0.1 0.0 - 0.2 X10*3/uL [facility] NRBC Abs Auto 0.000 0.0 - 0.012 X10*3/uL [facility] Blood Venous blood specimen / Unknown 12/22/2024 12:30 PM EDT 12/22/2024 1:33 PM EDT [facility] AREA OPERATIONS DIRECTOR LAB BLOOD ORDERABLES Bharti l Result [facility] [address] [place] [phone] * (ABNORMAL) Comprehensive Metabolic Panel (12/22/2024 12:30 PM EDT) Sodium 142 135 - 145 mmol/L [facility] Potassium 3.9 3.3 - 5.1 mmol/L [facility] Chloride 113(H) 96 - 108 mmol/L [facility] Carbon Dioxide 25 22 - 29 mmol/L [facility] Anion Gap 8(L) 12 - 20 [facility] Urea Nitrogen (BUN) 9 9 - 16 mg/dL [facility] Creatinine, Serum 0.65 0.5 - 1.4 mg/dL [facility] Estimated Glomerular Filt Rate >60 [facility] Comment:Chronic Kidney Disea se: Estimated GFR < 60 mL/min/1.46d1Gmpwdh Kidney Disease: Estimated GFR < 15 mL/min/1.73m2 Glucose 98 60 - 115 mg/dL [facility] Calcium 8.6 8.4 - 10.2 mg/dL [facility] Bilirubin, Total 1.2(H) 0.0 - 1.0 mg/dL [facility] Aspartate Amino Transferase 42(H) 5 - 31 U/L [facility] Alanine Aminotransferase 22 0 - 31 U/L [facility] Total Protein 6.2(L) 6.5 - 8.0 g/dL [facility] Albumin Level 2.9(L) 3.5 - 5.0 g/dL [facility] Alkaline Phosphatase 158(H) 39 - 117 U/L [facility] Blood Venous blood specimen / Unknown 12/22/2024 12:30 PM EDT 12/22/2024 1:50 PM EDT [facility] LAB BLOOD ORDERABLES Bharti l Result [facility] [address], [place] [phone] * (ABNORMAL) POCT Urinalysis (12/22/2024 12:03 PM EDT) Color, UA Brea Clarity, UA Clear Glucose, UA Negative Bilirubin, UA Negative Ketones, UA Negative Spec Grav, UA 1.025 Blood, UA Positive(A) Negative, None Detected pH, UA 6.0 Protein, UA Trace Urobilinogen, UA 1.0 Leukocytes, UA Negative Negative, Rare, Trace Nitrite, UA Negative Negative, None Detected Appearance, UA Brea QC Media Lot # [id number] Lot# Expiration Date [id number] Urine 12/22/2024 12:0 3 PM EDT [facility] POINT OF CARE TEST ENTER/ EDIT ORDERABLES Final Result * BI Mammogram Screening Tomosynthesis Bilateral (12/03/2023 11:05 AM EST) Anatomical Region Laterality Modality Breast Bilateral Mammography 12/03/2023 11:0 5 AM EST Narrative 12/21/2023 3:37 PM EDT ? [facility] ? [address] ?[place] [address] ? Mammography Report ? Signed ? Patient: Magriz,Carissa ?MR#: [id number] ? : 1965 ?Acct:[id number] ? Age/Sex: 58 / F ?ADM Date: 12/03/23 ? Loc: HO.MAMMO ? Attending Dr: Rey Bess MD ? Ordering Physician: eRy Bess MD ?Resu ?? lts: 1Negative ? Date of Service: 12/03/23 ?Follow Up: 1 Year From Orig ?? inal Mammogram ? Procedure(s): MM tomosynthesis screening BI ?? Accession Number(s): [id number] ? cc: Rey Bess MD ? EXAMINATION: [...] 1533 ? DD/ 1105 ? TD/TT: ? Bleach Maker: ? Procedure Note Fadia, Image - 12/21/2023 [facility] [address] [place] [address] Dr. Ballard, WANDA [address] Mammography Report Signed Patient: Dawna Winslow#: [id number] : 1965Acct:[id number] Age/Sex: 58 / FADM Date: 12/03/23 Loc: [facility] Attending Dr: Rey Bess MD Ordering Physician: Rey Bess MDResu lts: 1Negative Date of Service: 12/03/23Follow Up: 1 Year From Orig inal Mammogram Procedure(s): MM tomosynthesis screening BI Accession Number(s): [id number] cc: Rey Bess MD EXAMINATION: MM SCREENING [...] in OV> 12/21/23 1533 DD/ 1105 TD/TT: Bleach Maker: us Rey Ellis MD IMG BI PROCEDURES Noble jese Result - Final * (ABNORMAL) Lipid Panel with Reflex to Direct LDL (07/07/2023 9:16 AM EDT) Triglycerides 115 <150 mg/dL [facility] Comment:Desirable Triglyceri de: less than 150 mg/dLBorderline High Triglyceride 150-199 mg/dLHigh Triglyceride: 200-499 mg/dLVery High Triglyceride: greater than or equal to 5OO mg/dL Cholesterol 154 <200 mg/dL [facility] Comment:Desirable Cholestero l: less than 200 mg/dLBorderline High Cholesterol: 200-239 mg/dLHigh Cholesterol: greater than 239 mg/dL LDL Cholesterol Calculated 104(H) <100 mg/dL [facility] Comment:Desirable LDL: less than 100 mg/dLNear Optimal/Above Optimal LDL: 110- 129 mg/dLBorderline High LDL: 130-159 mg/dLHigh LDL: 160-189 mg/dLVery High LDL: greater than or equal to 190 mg/dL HDL Cholesterol 27(L) >40 mg/dL [facility] Comment:Desirable HDL: great er than 40 mg/dL Note: This HDL assay may give artificially low results in patients with liver disease. Blood 07/07/2023 9:16 AM EDT 07/07/2023 9:16 AM EDT Rey Ellis MD LAB BLOOD ORDERABLES Final Result [facility] [address] [place] [phone] * Pap Smear (11/28/2022) Pap Negative [...] a test for HCV RNA (test code 28640) is suggested. ?? For additional information please refer to http://education.BitWine/faq/OUP56v9 (This link is being provided for informational/ educational purposes only.) ?? 07/02/2021 9:13 AM EDT us Aziza Otto ANP HISTORICAL/NON ORDERABLE LABS Fi nal Result Performing Organization Address [facility] Phone Number [facility] [address] [place] [address], * HIV 1/2 ANTIGEN/ANTIBODY,FOURTH GENERATION W/RFL (07/02/2021 9:13 AM EDT) HIV-1/2 ANTIGEN AND ANTIBODIES, 4TH GENERATION W/ REFLEX NON-REACT PARK NON-REACT PARK [facility] Comment: HIV-1 antigen and HIV-1/HIV-2 [...] ? For additional information please refer to http://education.Makoo.[employer]/faq/TFO961 (This link is being provided for informational/ educational purposes only.) ? The performance of this assay has not been clinically validated in patients less than 2 years old. ?? 07/02/2021 9:13 AM EDT us Aziza Otto ANP LAB BLOOD ORDERABLES Final Resul t Performing Organization Address [facility] Phone Number [facility] [address] [place] [address], [place] * Hm Colonoscopy (02/13/2015 8:32 AM EDT) Colonoscopy Normal Normal Alpa Scott - 02/13/2015 8:32 AM EDT Recommended 10 year follow up per pcp note hyperplastic polyp Historical Provider HEALTH MAINTENANCE Edited Result - Final from Last 3 Months or Most Recently Relevant to Health Maintenance Insurance [facility] Member Subscriber Plan / Payer (Ef fective 2020-Present) Name:Carissa Winslow Relation to Subscriber:Self Name:himafabián Carissa Jeff Payer ID:Not on file Group ID:[id number] Type:Not on file Address: [address] STANDARD Care Teams Oil Drilling Engineer Relationship Specialty Start Date End Date Rey Soriano MD [address] [place] [address] PCP - General Internal Medicine 07/04/14
--- OUTSIDE RECORDS SUMMARY | 2024-12-22 14:49 | XMS_ITS | Encounter Summary ---
Author Organization [employer] [facility] Address [address] [place] [address] 7 [place] [address] Care Team Providers Care Director Industrial Relations Name Role Phone Rey Soriano MD Primary Care Provide r Reason for Visit * Reason Comments Med Refill Encounter Details Date Type Department Care Team (Late st Contact Info) Description 05/14/[address] [facility] [address] [place], [place] [phone] Chiquis Kumra MD [address] [place], [place] [phone] Acute nonintractable headache, unspecified headache type Social [...] Encounters Date Type Department Care Team (Late Contact Info) Description 02/08/2025 11:00 AM EDT Office Visit [facility] [address] [place], [place] [phone] Rey Soriano MD [address] [place], [place] [phone] documented as of this encounter Visit Diagnoses Diagnosis Acute nonintractable headache, unspecified headache type documented in this encounter Care Teams Director Industrial Relations Relationship Specialty Start Date End Date Rey Soriano MD [address] [place] [address] PCP - General Internal Medicine 07/04/14 documented as of this encounter
--- OUTSIDE RECORDS SUMMARY | 2024-12-22 14:49 | XMS_ITS ---
Author Organization [facility] Address [address] [place] [address] Care Team Providers Care Subsea Engineer Name Role Phone Ludy Ellis MD, Rey Primary Care Provide Raj Mireles [phone] Encounters Encounter Location Date Provider Diagnosis [facility] [address] [place] [address] 07/19/2024 Raj Manuel Plan Of Treatment Next Appt Details Provider Name:Raj Manuel , 02/04/2025 01:00:00 PM, [address], [address], [place], [address], Progress Notes * FAY KILLIAN EDOB: 4 (59 yo F)Acc No.[id number]:07/19/2024 Patient:?FAY KILLIAN :1965???Age:59 Y???Sex:Female Address:[address] [place] [address], [address] Subjective: * Chief Complaints: * ??? * Medical History:? * Surgical History:? * Hospitalization/Major Diagno stic Procedure:? * Medications:? Objective: Assessment: Plan: * Treatment: * Procedure Codes:? * true * Date:? Generated for Printi ng/Fafernandag/eTransmitting on:?12/22/2024 10:11 AM EDT
--- OUTSIDE RECORDS SUMMARY | 2024-12-22 14:49 | XMS_ITS | Encounter Summary ---
Author Organization [employer] [facility] Address [address] [place] [address] [address] [place] [address] Care Team Providers Care Library Sales Consultant Name Role Phone Rey Soriano MD Primary Care Provide r Reason for Visit * Reason Comments Med Refill Encounter Details Date Type Department Care Team (Late st Contact Info) Description 04/16/2023 Refill [facility] [address] [place], [place] [phone] Rey Soriano MD [address] [place], [place] [phone] Acute nonintractable headache, unspecified headache type Social [...] Description 02/08/2025 11:00 AM EDT Office Visit [facility] [address] [place], [place] [phone] Rey Soriano MD [address] [place], [place] [phone] documented as of this encounter Visit Diagnoses Diagnosis Acute nonintractable headache, unspecified headache type documented in this encounter Care Teams Library Sales Consultant Relationship Specialty Start Date End Date Rey Soriano MD [address] [place] [address] PCP - General Internal Medicine 07/04/14 documented as of this encounter
--- OUTSIDE RECORDS SUMMARY | 2024-12-22 14:49 | XMS_ITS ---
Author Organization [facility] Address [address] [place] [address] Care Team Providers Care Medical Technologist Chemistry Name Role Phone Ludy Ellis MD, Rey Primary Care Provide Raj Mireles [phone] Allergies No Known Allergies REASON FOR VISIT [...] diagnostic imaging of liver and biliary tract (101600739) Abnormal MRI, liver (R93.2) Active confirmed Vital Signs Blood pressure systolic 00 mm Hg 10/01/20 24 Blood pressure diastolic 00 mm Hg 024 Height 64 in 07/06/2024 Weight 177 lbs 07/06/2024 BMI 30.38 kg/m2 07/06/2024 Encounters Encounter Location Date Provider Diagnosis [facility] [address] [place] [address] 07/06/2024 Raj Manuel Fatty liver K76.0 ; [...] Name:Raj Manuel , 02/04/2025 01:00:00 PM, [address] [facility], [address], [place], [address], Progress Notes * MARIA D CARISSA EDOB: 4 (59 yo F)Acc No.[id number]:07/06/2024 Progress Notes Patient:?JUNIOR KILLIANNA Tomer Provider:?Raj Manuel MD :1965???Age:59 Y???Sex:Female D ate:07/06/2024 Address:[address] [place], [place] [phone] Pcp:Rey lockwood MD Subjective: * Chief Complaints: [...] Procedure Codes:?3017F COLOR ECTAL CA SCREEN DOC [id number] TOBACCO NON-VFTRZ2025 BP SCR NOT PRFRM REC REASON NOS * Follow Up:?Spring 2024 * * Sign off status: Completed true * Provider:?Raj Manuel MD Date:? 024 Generated for Eli pina/Murtaza/eTransmitting on:?12/22/2024 10:11 AM EDT History and Physical Notes * [...]
--- OUTSIDE RECORDS SUMMARY | 2024-12-22 14:49 | XMS_ITS | Encounter Summary ---
Author Organization [employer] Address [address] [place] [address] Care Team Providers Care Make Up Arranger Name Role Phone Rey Soriano MD Primary Care Provide r Encounter Details Date Type Department Care Team ([facility] st Contact Info) Description 12/02/2024 Telephone C OPTOMETRY [address] [place] [address] Poli, Saira, OD [address] [place] [address] Social History Tobacco Use Types Packs/Day Years [...] Description 02/08/2025 11:00 AM EDT Office Visit [facility] [address] [place] [phone] Rey Soriano MD [address] [place] [address] documented as of this encounter Visit Diagnoses Not on filedocumented in this encounter Care Teams Make Up Arranger Relationship Specialty Start Date End Date Rey Soriano MD [address] [place] [address] PCP - General Internal Medicine 07/04/14 documented as of this encounter
== END 2024-12-22 12:25 | disposition home or self-care (01) ==
LOC: HO.HHCL 12:24
DX: K74.69 Other cirrhosis of liver (principal); R82.90 Unspecified abnormal findings in urine
CPT/HCPCS: 36415; 80053; 85025; 87086

== ENCOUNTER 2024-12-28 14:46 | Outpatient (AMB) | payer OTHER, SELFPAY ==
[2024-12-28 14:50] VITALS: BP 124/74; PULSE 76; O2SAT 98; BMI 36.1
--- NOTE | 2024-12-28 14:50 | MHC.OFFVIS ---
Vital Signs 12/28/24 14:50 Height 5 ft 1 in Weight 190 lb 14.725 oz BMI 36.1 BP 124/74 Blood Pressure Location Rt brachial Position Sitting Pulse 76 Pulse Source Pulse Oximeter Pulse Oximetry (%) 98 Oxygen Delivery Method Room Air Intake Visit Reasons: High +LUCÍA with +dsDNA and Intake Note: Patient last seen by Sierra Munoz on 09/23/23. Presents today for High +LUCÍA with +dsDNA follow up. Allergies No Known Allergies [No Known Allergies*] Allergy (Verified 12/28/24 14:53) Medication List - Last Reconciled 12/28/24 by Yarely Contreras MD cetirizine 10 mg PO DAILY clotrimazole 1% 1 appl topical DAILY cyclobenzaprine 10 mg PO TID PRN diclofenac sodium 1% 1 ea topical BID emtricitabine-tenofovir (TDF) 200-300 mg 1 tab PO DAILY ibuprofen 400 mg PO Q6H PRN lidocaine 5% (Lidoderm) 1 patch topical DAILY omeprazole 20 mg PO DAILY ursodiol 500 mg PO BID HPI Comments Details: Patient is a 59-year-old female with hyperlipidemia, fatty liver disease, polyarticular osteoarthritis here today for follow up Interval History: Patient last seen 09/23/2023 with Sierra Munoz. At that time she was following up for evaluation of positive LUCÍA 1:1280 centromere pattern with positive dsDNA. However at that time she did not have any evidence of autoimmune disease. Denying Raynaud's, rashes, photosensitivity, respiratory symptoms, cardiac symptoms or VTE. Today she is here for routine follow up Denies joint pain, chest pain, SOB, rashes, RP, photosensitivity Was being evaluated for bilateral LE edema with normal ECHO and normal kidney US Rheumatologic History: Initial history by Dr. Pappas: The patient is referred for evaluation of a positive LUCÍA. She does have some liver disease and this is thought to be steatohepatitis. They did do some laboratory work and the LUCÍA was positive at a titer of 1:1280. This was in a centromere pattern. She does have some knee pain that is worse with weight-bearing activity. She has received corticosteroid injections in Orthopedics for this that were helpful. There is no known history of injury to the knees. They do not really show any swelling. She takes Truvada because her has HIV although his viral load is suppressed with triple therapy. She has been trying to lose weight to help the liver issue. Follow up history by Sierra Munoz: Ms. Ferrer, 58-year-old female returns for follow-up evaluation of her positive LUCÍA 1:1280, centromere pattern. She she was found to have a positive LUCÍA in August of 2022. Further evaluation with labs found that her double-stranded DNA and centromere antibodies were positive. With regards to connective tissue diseases, this would suggest that patient may have crest syndrome and/or lupus. However, currently she has no related symptoms and denies past experiences and incidences. She does have some liver disease and this is thought to be steatohepatitis (GARVEY) and so she has been trying to lose weight to help mitigate the liver concerns. Additionally, she does have some knee pain that is worse with weight-bearing activity, and follows with Ortho. She has received corticosteroid injections in Orthopedics for this that were helpful. There is no known history of injury to the knees. Patient denies Raynaud's phenomenon, butterfly rash on face or other rashes; denies photosensitivity - getting sick or developing a rash from being out in the sun; denies blood or froth in urine; patient denies hx of SOB, chest pain. Patient denies hx of Carditis or Pleuritis. Patient denies any history of DVT/PE. The patient reports never have had o take aspirin or a blood thinner during the successful pregnancies. Denies fevers, excessive fatigue, unexplained weight-loss or weight-gain, Denies: thinning hair or hair loss; Denies: dry, itchy eyes, red burning eyes needing steroids to treat; dry mouth, mouth sores or ulcers; nose bleed; ringing in the ear, Denies blood or mucous in stool; nausea, vomiting and diarrhea , difficulty swallowing, heartburn. She takes Truvada because her has HIV although his viral load is suppressed with triple therapy. Current Rheumatology Medication(s): [facility] Medical History (Updated 05/25/24 @ 14:44 by Sarah Stover PA-C) Family history of HIV Hx of obesity Hx of mixed hyperlipidemia History of fatty infiltration of liver History of elevated antinuclear antibody (LUCÍA) Surgical History History of liver biopsy H/O colonoscopy Social History Household Members: Spouse and None Household Members Other:: daughter Alcohol intake: never Patient Tobacco Use Status: Never used Tobacco Second Hand Smoke Exposure: No Current occupational status: unemployed Review of Systems Const Details: Review of Systems Constitutional: Denies fever, chills, weight loss ENT: Denies vision changes, eye pain or eye redness, dental caries, dry mouth GI: Denies nausea, vomiting, diarrhea, abdominal pain, change in BM Pulm: Denies SOB, JONES, hemoptysis, wheezing Cards: Denies chest pain, palpitations Skin: Denies Raynaud's, rash, nail changes, photosensitivity, VOICE OVER ANNOUNCER: Denies headaches, weakness, paresthesias, recurrent falls MSK: as per HPI All other systems reviewed and are unremarkable except noted above Physical Exam Vital Signs: Last Vital Signs Pulse 76 12/28/24 14:50 BP 124/74 12/28/24 14:50 Pulse Ox 98 12/28/24 14:50 Oxygen Delivery Method Room Air 12/28/24 14:50 BMI result Body Mass Index 36.1 Vital signs reviewed Physical Examination CONSTITUITIONAL Patient alert and cooperative. Well appearing and in no apparent painful distress HEENT Conjunctiva and sclera clear. ?Pupils equal round and reactive to light. ?No lymphadenopathy. ? CHEST/RESPIRATORY SYSTEM Normal respiratory effort and able to speak in complete sentences. ?Clear to auscultation bilaterally. ?No crackles, rales, rhonchi, wheezes heard. CARDIAC SYSTEM Regular rate and rhythm. ?S1 and S2 heard no murmurs. ?Radial pulses intact bilaterally MSK Hands: ?Good acds block 1 operator strength bilaterally. No deformities noted. ?No synovitis noted to the MCPs, PIPs or DIPs. ?No tenderness to palpation of these joints. Wrists: ?Full range of motion at the wrists without pain. ?No tenderness to palpation or synovitis noted to the wrists. Elbows: Full range of motion without pain. No tenderness, weakness, swelling, increased warmth or erythema. Shoulders: Full range of motion without pain. No tenderness, weakness, swelling, increased warmth or erythema. Hips: Full range of motion without pain. Hip bursa: No tenderness to palpation Knees: ?Full range of motion. ?No tenderness, swelling, increased warmth or erythema.?No effusion or crepitations Ankles: Full range of motion. ?No tenderness, swelling, increased warmth or erythema.? Feet: ?Negative squeeze test. ?No tenderness to palpation or swelling of the MTPs. Bilateral pitting edema up to the knees 1-2+ Tender points:?No tenderness to palpation of the bilateral trapezius, supraspinatus, greater trochanters, anterior costochondral junctions, bilateral gluteal areas, bilateral suboccipital muscle insertions SKIN Skin intact without rashes. Results Reviewed Results Reviewed: Laboratory Tests 06/19/23 12/22/24 09:30 12:30 WBC 5.8 RBC 3.81 L Hgb 10.3 L Hct 33.0 L Plt Count 103 L ESR 34 H Sodium 142 Potassium 3.9 Chloride 113 H Carbon Dioxide 25 BUN 9 Creatinine 0.65 Total Bilirubin 1.2 H AST 42 H ALT 22 Alkaline Phosphatase 158 H Immunology labs 12/05/22 06/19/23 14:31 09:30 LUCÍA Screen POSITIVE A LUCÍA Titer 1:1280 H LUCÍA Titer 2 1:80 H LUCÍA Pattern Nuclear, Centromere A Sm (Kwok) Antibody <1.0 NEG SM/STATISTICAL ANALYST IgG Antibody <1.0 NEG Double Strand DNA Ab 16 H Centromere B Antibody 7.4 POS A Assessment & Plan Assessment & Plan (1) Positive LUCÍA (antinuclear antibody): Code(s): R76.8 - Other specified abnormal immunological findings in serum Plan: #Positive LUCÍA Patient is a 59-year-old female with high titer LUCÍA positive double-stranded without any symptoms of clinical lupus despite not having any clinical symptoms of lupus she does have worsening anemia and persistent thrombocytopenia could be related to underlying most lupus/undifferentiated connective tissue disease. We will do blood work and check labs today including complement. If there is any evidence that she may have active lupus I think she would benefit from treatment even if it is not clinically manifested Plan - Check CBC, CMP, ESR, CRP, C3, C4, dsDNA, UA, UPC - Recheck LUCÍA, SSA/SSB, Sm, STATISTICAL ANALYST - Check DCT - RTC 6 months Plan I spent 30 minutes reviewing the record and labs, taking a history, examining the patient, discussing the treatment plan, ordering diagnostic work up and documenting in the medical record Orders: Orders Complement C4 Today Z87.898 - Personal history of other specified conditions Complete Blood Count Auto Diff Today Z87.898 - Personal history of other specified conditions Comprehensive Met. Panel Today Z.898 - Personal history of other specified conditions C Reactive Protein Today Z87.898 - Personal history of other specified conditions Erythrocyte Sedimentation Rate Today Z87.898 - Personal history of other specified conditions Direct Jean (MENG) Today Z87.898 - Personal history of other specified conditions IRON PROFILE Today Z87.898 - Personal history of other specified conditions UA w Microscopic Today Z87.898 - Personal history of other specified conditions LUCÍA Reflex Titer and Pattern Today Z.898 - Personal history of other specified conditions Sjogren's Antibodies Today Z.898 - Personal history of other specified conditions Complement C3 Today Z.898 - Personal history of other specified conditions Anti DNA DS Antibody Today Z87.898 - Personal history of other specified conditions Ferritin Today Z87.898 - Personal history of other specified conditions Protein Creatinine Ratio, Ur Today Z87.898 - Personal history of other specified conditions Sm Sm/STATISTICAL ANALYST Antibodies Today Z87.898 - Personal history of other specified conditions Scleroderma 70 Antibody Today Z87.898 - Personal history of other specified conditions Coding Level of Care Code Est Pt Level 4 (48759) Complex EM visit Add On G2211 Diagnoses Positive LUCÍA (antinuclear antibody) R76.8
--- OUTSIDE RECORDS SUMMARY | 2024-12-28 18:32 | XMS_ITS | Encounter Summary ---
Author Organization [email or web address] Address [address] [facility] 7t [place] [address] Care Team Providers Care Cake Winder Name Role Phone Rey Soriano MD Primary Care Provide r Reason for Visit * Reason Onset Date Comments Lab Orders 12/23/2024 Encounter Details Date Type Department Care Team ([facility] st Contact Info) Description 12/23/2024 Telephone [facility] [address] [place], [place] [phone] Rey Soriano MD [address] [place], [place] [phone] Lab Orders Social History Tobacco Use Types Packs/Day Years [...] encounter Miscellaneous Notes * Telephone Encounter - Meena Mcmahon RN - 12/23/2024 1:02 PM EDT [facility] lab informed new order for urine culture is being sent via interface. [facility] lab confirmed receiptof the lab order and will process urine culture sample. * Telephone Encounter - Oliver Ford CNP - 12/23/2024 11:03 AM EDT I will place a new order for culture only. Thanks! * Telephone Encounter - Meena Mcmahon RN - 12/23/2024 10:07 AM EDT Message received from [facility] lab reporting they received a urinalysis with reflex to culture order butcannot process the test because they only received a francois top urine culture tube and not a yellow top urinalysis tube with the francois top tube. For this order, both tubes are needed. Message sent to ordering provider JOSEPH Taveras and covering provider JOSEPH Sadler to determine if ordercan be changed to urine culture or if patient will need to resubmit a new urine sample. documented in this encounter Plan of Treatment Upcoming Encounters Date Type Department Care Team (Late st Contact Info) Description 02/08/2025 11:00 AM EDT Office Visit [facility] [address] [place] [address] Rey Soriano MD [address] [place] [address] documented as of this encounter Visit Diagnoses Not on filedocumented in this encounter Care Teams Cake Winder Relationship Specialty Start Date End Date Rey Soriano MD [address] [place] [phone] PCP - General Internal Medicine 07/04/14 documented as of this encounter
--- OUTSIDE RECORDS SUMMARY | 2024-12-28 18:32 | XMS_ITS | Encounter Summary ---
Author Organization [employer] Address [address] [facility] 7t [place] [address] Care Team Providers Care Patient Accounts Manager Name Role Phone Rey Soriano MD Primary [...] Description 02/08/2025 11:00 AM EDT Office Visit [facility] [address] [place] [address] Rey Soriano MD [address] [place] [address] documented as of this encounter Visit Diagnoses Not on filedocumented in this encounter Care Teams Patient Accounts Manager Relationship Specialty Start Date End Date Rey Soriano MD [address] [place] [address] PCP - General Internal Medicine 07/04/14 documented as of this encounter
--- OUTSIDE RECORDS SUMMARY | 2024-12-28 18:32 | XMS_ITS ---
Author Organization [facility] Address [address] [place] [address] Care Team Providers Care Instructor Nurse Name Role Phone Ludy Ellis MD, Rey Primary Care Provide Raj Mireles [phone] Encounters Encounter Location Date Provider Diagnosis [facility] [address] [place] [address] 07/19/2024 Raj Manuel Plan Of Treatment Next Appt Details Provider Name:Raj Manuel , 02/04/2025 01:00:00 PM, [address], [address], [place], [address], Progress Notes * FAY KILLIAN EDOB: [birth year] (59 yo F)Acc No.[id number]:07/19/2024 Patient:?FAY KILLIAN :1965???Age:59 Y???Sex:Female Address:[address] [place] [address], [address] Subjective: * Chief Complaints: * ??? * Medical History:? * Surgical History:? * Hospitalization/Major Diagno stic Procedure:? * Medications:? Objective: Assessment: Plan: * Treatment: * Procedure Codes:? * true * Date:? Generated for Printi ng/Faxing/eTransmitting on:?12/28/2024 06:32 PM EDT
--- OUTSIDE RECORDS SUMMARY | 2024-12-28 18:32 | XMS_ITS | Encounter Summary ---
Author Organization [employer] Address [address] [facility] 7t [place] [address] Care Team Providers Care Varnishing Unit Operator Name Role Phone Rey Soriano MD Primary Care Provide r Encounter Details Date Type Department Care Team ([facility] st Contact Info) Description 12/16/2024 Orders Only [facility] [address] [place], [place] [phone] Rey Soriano MD [address] [place], [place] [phone] Social History Tobacco Use Types Packs/Day Years [...] t he electric, gas, oil or water [employer] threatened to shut off services in your [...] Upcoming Encounters Date Type Department Care Team ([facility] st Contact Info) Description 02/08/2025 11:00 AM EDT Office Visit [facility] [address] [place] [address] Rey Soriano MD [address] [place] [address] documented as of this encounter Procedures Procedure Name Priority Date/Time Associated Diagnosis Comments BI MAMMOGRAM SCREENING TOMOSYNTHESIS BILATERAL Routine 12/16/2024 9:46 AM EDT documented in this encounter Results * BI Mammogram Screening Tomosynthesis Bilateral (12/16/2024 9:46 AM EDT) Anatomical Region Laterality Modality Breast Bilateral Mammography 12/16/2024 9:46 AM EDT Narrative 12/24/2024 3:51 PM EDT ? [facility] [place] ? [address] ?[place] [address] ?[phone] ? Mammography Report ? Signed ? Patient: Magriz,Carissa ?MR#: [id number] ? : 1965 ?Acct:[id number] ? Age/Sex: 59 / F ?ADM Date: 03/13/25 ? Loc: HO.MAMMO ? Attending Dr: Rey Bess MD ? Ordering Physician: Rey Bess MD ?Resu ?? lts: 1Negative ? Date of Service: 12/16/24 ?Follow Up: 1 Year From Orig ?? inal Mammogram ? Procedure(s): MM tomosynthesis screening BI ?? Accession Number(s): [id number] ? cc: Rey Bess MD ? EXAMINATION: ?? MM SCREENING DIGITAL BREAST TOMOSYNTHESIS, BILATERAL ? CLINICAL INFORMATION: ? Screening. Asymptomatic. ? COMPARISON: ?? Mammography: Comparison is made with available priors ? TECHNIQUE: ?? Digital breast mammography with tomosynthesis is performed in both the ?? craniocaudal and mediolateral oblique views along with computer-aided ?? detection (CAD). ? FINDINGS: ?? There are scattered areas [...] due date for their next mammogram. ? Electronically signed by: ??Selma Combs DO ??12/24/2024 03:48 PM EDT ?? RP ? Dictated By: ?Selma Combs DO ? Signed By: ?<Electronically signed by Selma Combs, DO in OV> ? 12/24/24 1548 ? DD/ 0946 ? TD/TT: 12/16/24 1010 ? Entertainment & Media Correspondent: ? Procedure Note Donotdougter, Image - 12/24/2024 [facility] [address] [place] [address] Mammography Report Signed Patient: Annette WinslownaMR#: [id number] : 1965Acct:[id number] Age/Sex: 59 / FADM Date: 12/16/24 Loc: [facility] Attending Dr: Rey Bess MD Ordering Physician: Rey Bess MDResu lts: 1Negative Date of Service: 12/16/24Follow Up: 1 Year From Orig inal Mammogram Procedure(s): MM tomosynthesis screening BI Accession Number(s): [id number] cc: Rey Bess MD EXAMINATION: MM SCREENING DIGITAL BREAST TOMOSYNTHESIS, BILATERAL CLINICAL INFORMATION: Screening. Asymptomatic. COMPARISON: Mammography: Comparison is made with available priors TECHNIQUE: Digital breast mammography with tomosynthesis is performed in both the craniocaudal and mediolateral oblique views along with computer-aided detection (CAD). FINDINGS: There are scattered areas of fibroglandular [...] target due date for their next mammogram. Electronically signed by: Selma Combs DO 12/24/2024 03:48 PM EDT RP Dictated By: Selma Combs DO Signed By: <Electronically signed by Selma Combs DO in OV> 12/24/24 1548 DD/ 0946 TD/TT: 12/16/24 1010 [employer] Correspondent: Rey Ellis MD IMG BI PROCEDURES Fin al Result documented in this encounter Visit Diagnoses Not on filedocumented in this encounter Care Teams Varnishing Unit Operator Relationship Specialty Start Date End Date Rey Soriano MD [address] [place] [address] PCP - General Internal Medicine 07/04/14 documented as of this encounter
--- OUTSIDE RECORDS SUMMARY | 2024-12-28 18:32 | XMS_ITS | Encounter Summary ---
Author Organization [employer] [facility] Address [address] [place] [address] [address] [place] [address] Care Team Providers Care Educational Fundraising Director Name Role Phone Rey Soriano MD Primary Care Provide r Reason for Visit * Reason Comments Med Refill Encounter Details Date Type Department Care Team (Late st Contact Info) Description 05/14/2023 Refill [facility] [address] [place], [place] [phone] Chiquis Kumar MD [address] [place], [place] [phone] Acute nonintractable headache, unspecified headache type Social [...] Office Visit [facility] [address] [place], [place] [phone] Rey Soriano MD [address] [place], [place] [phone] documented as of this encounter Visit Diagnoses Diagnosis Acute nonintractable headache, unspecified headache type documented in this encounter Care Teams Educational Fundraising Director Relationship Specialty Start Date End Date Rey Soriano MD [address] [place] [id number] PCP - General Internal Medicine 07/04/14 documented as of this encounter
--- OUTSIDE RECORDS SUMMARY | 2024-12-28 18:32 | XMS_ITS | Encounter Summary ---
Author Organization [employer] [facility] Address [address] [place] [address] 7t [place] [address] Care Team Providers Care Inspecting Machine Adjuster Name Role Phone Rey Soriano MD Primary Care Provide r Encounter Details Date Type Department Care Team ([facility] Contact Info) Description 09/23/2022 Telephone [facility] [address] [place] [address] [phone] Rey Soriano MD [address] [place] [address] [phone] Social History Tobacco Use Types Packs/Day Years [...] Upcoming Encounters Date Type Department Care Team ([facility] Contact Info) Description 02/08/2025 11:00 AM EDT Office Visit [facility] [address] [place] [phone] Rey Soriano MD [address] [place], [place] [phone] documented as of this encounter Visit Diagnoses Not on filedocumented in this encounter Care Teams Inspecting Machine Adjuster Relationship Specialty Start Date End Date Rey Soriano MD [address] [place] [address] PCP - General Internal Medicine 07/04/14 documented as of this encounter
--- OUTSIDE RECORDS SUMMARY | 2024-12-28 18:32 | XMS_ITS | Encounter Summary ---
Author Organization [employer] Address [address] [place] [address] [place] [address] Care Team Providers Care University Counselor Name Role Phone Rey Soriano MD Primary Care Provide r Reason for Visit * Reason Comments Foot Swelling Encounter Details Date Type Department Care Team ([facility] st Contact Info) Description 12/22/2024 11:00 AM EDT Office Visit [facility] MEDICINE [address] [place] [address] Oliver Ford CNP [address] [place] [address] Other cirrhosis of liver (CMS/HCC) (Primary Dx) [...] Condition: Left toenails are normal. Comments: +pedal 1-2+ pitting edema bilaterally Skin: General: Skin is [...] 3 day course of 20 mg lasix. Also recommended compression socks, will generate DME for this. ED precautions discussed. F/u with PCP as soon as available for chronic conditions. [facility] HEAD OF ART Attestation HEAD OF ART Resident Attestation: Patient was seen and evaluated by Oliver Ford CNP, in collaboration with Tricia Mao MD who has reviewed my assessment and plan. I, Tricia Mao MD, have reviewed the resident's note and agree with the assessment & plan of care as documented above. documented in this encounter Miscellaneous Notes * Result Encounter Note - Oliver Ford CNP - 12/22/2024 11:00 AM EDT Please review thank you documented in this encounter Plan of Treatment Upcoming Encounters Date Type Department Care Team (Late st Contact Info) Description 02/08/2025 11:00 AM EDT Office Visit [facility] MEDICINE [address] [place] [phone] Rey Soriano MD [address] [place] [address] Scheduled Orders Name Type Priority Associated Diagnoses [...] Blood Count 5.8 4.8 - 10.8 X10*3/uL [facility] Red Blood Count 3.81(L) 4.20 - 5.50 X10*6/uL [facility] Hemoglobin 10.3(L) 12.0 - 16.0 g/dl [facility] Hematocrit 33.0(L) 37.0 - 47.0 % [facility] Mean Corpuscular Volume 86.6 80.0 - 98.0 fL [facility] Mean Corpuscular Hemoglobin 27.0 27.0 - 33.0 pg [facility] Mean Corpuscular HGB Conc 31.2 31.0 - 35.0 g/dl [facility] Red Cell Distribution Width 15.2 11.0 - 16.0 % [facility] Platelet Count 103(L) 160 - 400 X10*3/uL [facility] Mean Platelet Volume 11.8 9.4 - 12.3 fL [facility] Neutrophils Percent Auto 60.0 45 - 73 % [facility] Imm Gran Pct Auto 0.2 0.0 - 0.4 % [facility] Lymphocytes Percent Auto 26.4 20 - 40 % [facility] Monocytes Percent Auto 9.4 2 - 11 % [facility] Eosinophils Percent Auto 3.1 0 - 4 % [facility] Basophils Percent Auto 0.9 0 - 2 % [facility] NRBC Pct Auto 0.0 0.0 - 0.2 /100WBC [facility] Neutrophils Absolute Auto 3.5 2.0 - 8.3 x10*3/uL [facility] Imm Gran Abs Auto 0.01 0.00 - 0.03 X10*3/uL [facility] Lymphocytes Absolute Auto 1.5 1.2 - 4.9 X10*3/uL [facility] Monocytes Absolute Auto 0.6 0.1 - 1.2 X10*3/uL [facility] Eosinophils Absolute Auto 0.2 0.0 - 0.4 X10*3/uL [facility] Basophils Absolute Auto 0.1 0.0 - 0.2 X10*3/uL [facility] NRBC Abs Auto 0.000 0.0 - 0.012 X10*3/uL [facility] Blood Venous blood specimen / Unknown 12/22/2024 12:30 PM EDT 12/22/2024 1:33 PM EDT [facility] LAB BLOOD ORDERABLES Bharti l Result [facility] [address] [place] [phone] * (ABNORMAL) Comprehensive Metabolic Panel (12/22/2024 12:30 PM EDT) Sodium 142 135 - 145 mmol/L [facility] Potassium 3.9 3.3 - 5.1 mmol/L [facility] Chloride 113(H) 96 - 108 mmol/L [facility] Carbon Dioxide 25 22 - 29 mmol/L [facility] Anion Gap 8(L) 12 - 20 [facility] Urea Nitrogen (BUN) 9 9 - 16 mg/dL [facility] Creatinine, Serum 0.65 0.5 - 1.4 mg/dL [facility] Estimated Glomerular Filt Rate >60 [facility] Comment:Chronic Kidney Disea se: Estimated GFR < 60 mL/min/1.84d1Gedscj Kidney Disease: Estimated GFR < 15 mL/min/1.73m2 Glucose 98 60 - 115 mg/dL [facility] Calcium 8.6 8.4 - 10.2 mg/dL [facility] Bilirubin, Total 1.2(H) 0.0 - 1.0 mg/dL [facility] Aspartate Amino Transferase 42(H) 5 - 31 U/L [facility] Alanine Aminotransferase 22 0 - 31 U/L [facility] Total Protein 6.2(L) 6.5 - 8.0 g/dL [facility] Albumin Level 2.9(L) 3.5 - 5.0 g/dL [facility] Alkaline Phosphatase 158(H) 39 - 117 U/L [facility] Blood Venous blood specimen / Unknown 12/22/2024 12:30 PM EDT 12/22/2024 1:50 PM EDT [facility] LAB BLOOD ORDERABLES Bharti l Result [facility] [address] [place] [phone] * (ABNORMAL) POCT Urinalysis (12/22/2024 12:03 PM EDT) Color, UA [place] Clarity, UA Clear Glucose, UA Negative Bilirubin, UA Negative Ketones, UA Negative Spec Grav, UA 1.025 Blood, UA Positive(A) Negative, None Detected pH, UA 6.0 Protein, UA Trace Urobilinogen, UA 1.0 Leukocytes, UA Negative Negative, Rare, Trace Nitrite, UA Negative Negative, None Detected Appearance, UA [place] QC Media Lot # [id number] Lot# Expiration Date [id number] Urine 12/22/2024 12:0 3 PM EDT [facility] POINT OF CARE TEST ENTER/ EDIT ORDERABLES Final Result documented in this encounter Visit Diagnoses Diagnosis Other cirrhosis of liver (CMS/HCC)- Primary documented in this encounter Care Teams University Counselor Relationship Specialty Start Date End Date Rey Soriano MD [address] [place] [phone] PCP - General Internal Medicine 07/04/14 documented as of this encounter
--- OUTSIDE RECORDS SUMMARY | 2024-12-28 18:32 | XMS_ITS | Encounter Summary ---
Author Organization [employer] Address [address] [facility] 7t [place] [address] Care Team Providers Care Automotive Engineering Technician Name Role Phone Rey Soriano MD Primary Care Provide r Encounter Details Date Type Department Care Team (Late st Contact Info) Description 12/23/2024 Orders Only [facility] MEDICINE [address] [place] [address] Oliver Ford CNP [address] [place] [address] Other cirrhosis of liver (CMS/HCC) (Primary Dx) [...] Upcoming Encounters Date Type Department Care Team ([facility] st Contact Info) Description 02/08/2025 11:00 AM EDT Office Visit [facility] MEDICINE [address] [place] [address] Rey Soriano MD [address] [place] [address] documented as of this encounter Procedures Procedure Name Priority Date/Time Associated Diagnosis Comments CULTURE, URINE, ROUTINE Routine 12/22/2024 12:00 AM EDT Other cirrhosis of liver (CMS/HCC) documented in this encounter Results * Culture, Urine, Routine (12/22/2024 12:00 AM EDT) Urine Urine specimen obtained by clean catch procedure / Unknown 12/22/2024 12/22/2024 Comment:[facility] - 12/24/2024 10:12 AM EDT Urine Culture No growth. Specimen Source: Urine clean catch [facility] LAB MICROBIOLOGY - GENERA L ORDERABLES Final Result [facility] [address] [place] [phone] [phone] documented in this encounter Visit Diagnoses Diagnosis Other cirrhosis of liver (CMS/HCC)- Primary documented in this encounter Care Teams Automotive Engineering Technician Relationship Specialty Start Date End Date Rey Soriano MD [address] [place] [address] PCP - General Internal Medicine 07/04/14 documented as of this encounter
--- OUTSIDE RECORDS SUMMARY | 2024-12-28 18:32 | XMS_ITS | Clinical Summary ---
Author Organization [employer] Address [address] [place] [address] 7t [place] [address] Care Team Providers Care Senior Planning Analyst Name Role Phone Rey Soriano MD Primary [...] MG capsule daily. Acti ve sodium chloride ([place] Nasal [place]) 0.65 % nasal sprayIndications:N angus congestion 1-2 [...] Under the care of liver clinic at [facility] Dr Justin Crook Elevated antinuclear antibody (LUCÍA) [...] sexually active pre-menopausal Pt was evaluated by [facility]'s ashley who recommended to proceed with Transvaginal US [...] the care of Dr Justin Rehman at [facility]. Last seen in 2022 had EGD that [...] HIV being followed by PrEP navigator at [facility] health care 10/01/2022 Assessment & Plan [...] personal goal for weight loss. Seen by Plant Culture Manager twice Will repeat Lipid profile Assessment & [...] personal goal for weight loss. Seen by Plant Culture Manager twice Microscopic hematuria 07/06/2012 Assessment & Plan [...] Encounters Date Type Department Care Team Description 12/24/2024 Telephone [facility] [address] [place] [address] Rey Soriano MD Durable Medical Equipment (Compression socks) 12/24/2024 Telephone [facility] [address] [place] [address] Oliver Ford CNP 12/23/2024 Orders Only [facility] [address] [place] [address] Oliver Ford CNP Other cirrhosis of liver (CMS/HCC) (Primary Dx) 12/23/2024 Telephone [facility] [address] [place] [address] Rey Soriano MD Lab Orders 12/22/2024 11:00 AM EDT Office Visit [facility] [address] [facility] [place] [address] Oliver Ford CNP Other cirrhosis of liver (CMS/HCC) (Primary Dx) 12/22/2024 Travel 12/20/2024 Telephone [facility] [address] [place] [address] Rey Soriano MD Nurse Triage 12/16/2024 Orders Only [facility] MEDICINE [address] [place] [address] Rey Soriano MD 12/02/2024 Telephone [facility] OPTOMETRY [address] [place] [address] Saira Ashton OD 10/21/2024 12:10 PM EST Immunization [facility] [address] [place] [address] Ashley Norwood RN Encounter for immunization 10/21/2024 [...] Description 02/08/2025 11:00 AM EDT Office Visit [facility] [address] [facility] [place] [place] [address] Rey Soriano MD [address] [facility] [place] [address] Health Maintenance Due Date Last Done Comments [...] 02/13/2015 Colorectal Cancer Screening 02/13/2025 Tobacco Screening 12/22/2025 12/22/2024 Mammogram 12/16/2026 12/16/2024, 11/07, 11/26/2022, Additional history exists Cervical Cancer Screening 11/28/2027 [...] PM EDT Other cirrhosis of liver (CMS/HCC) CULTURE, URINE, ROUTINE Routine 12/22/2024 12:00 AM EDT Other cirrhosis of liver (CMS/HCC) BI MAMMOGRAM SCREENING TOMOSYNTHESIS BILATERAL Routine 12/16/2024 9:46 AM EDT LIPID PANEL WITH REFLEX TO DIRECT LDL [...] Blood Count 5.8 4.8 - 10.8 X10*3/uL [facility] Red Blood Count 3.81(L) 4.20 - 5.50 X10*6/uL [facility] Hemoglobin 10.3(L) 12.0 - 16.0 g/dl [facility] Hematocrit 33.0(L) 37.0 - 47.0 % [facility] Mean Corpuscular Volume 86.6 80.0 - 98.0 fL [facility] Mean Corpuscular Hemoglobin 27.0 27.0 - 33.0 pg [facility] Mean Corpuscular HGB Conc 31.2 31.0 - 35.0 g/dl [facility] Red Cell Distribution Width 15.2 11.0 - 16.0 % [facility] Platelet Count 103(L) 160 - 400 X10*3/uL [facility] Mean Platelet Volume 11.8 9.4 - 12.3 fL [facility] Neutrophils Percent Auto 60.0 45 - 73 % [facility] Imm Gran Pct Auto 0.2 0.0 - 0.4 % [facility] Lymphocytes Percent Auto 26.4 20 - 40 % [facility] Monocytes Percent Auto 9.4 2 - 11 % [facility] Eosinophils Percent Auto 3.1 0 - 4 % [facility] Basophils Percent Auto 0.9 0 - 2 % [facility] NRBC Pct Auto 0.0 0.0 - 0.2 /100WBC [facility] Neutrophils Absolute Auto 3.5 2.0 - 8.3 x10*3/uL [facility] Imm Gran Abs Auto 0.01 0.00 - 0.03 X10*3/uL [facility] Lymphocytes Absolute Auto 1.5 1.2 - 4.9 X10*3/uL [facility] Monocytes Absolute Auto 0.6 0.1 - 1.2 X10*3/uL [facility] Eosinophils Absolute Auto 0.2 0.0 - 0.4 X10*3/uL [facility] Basophils Absolute Auto 0.1 0.0 - 0.2 X10*3/uL [facility] NRBC Abs Auto 0.000 0.0 - 0.012 X10*3/uL [facility] Blood Venous blood specimen / Unknown 12/22/2024 12:30 PM EDT 12/22/2024 1:33 PM EDT [facility] LAB BLOOD ORDERABLES Bharti l Result [facility] [address] [place] [phone] [phone] * (ABNORMAL) Comprehensive Metabolic Panel (12/22/2024 12:30 PM EDT) Sodium 142 135 - 145 mmol/L [facility] Potassium 3.9 3.3 - 5.1 mmol/L [facility] Chloride 113(H) 96 - 108 mmol/L [facility] Carbon Dioxide 25 22 - 29 mmol/L [facility] Anion Gap 8(L) 12 - 20 [facility] Urea Nitrogen (BUN) 9 9 - 16 mg/dL [facility] Creatinine, Serum 0.65 0.5 - 1.4 mg/dL [facility] Estimated Glomerular Filt Rate >60 [facility] Comment:Chronic Kidney Disea se: Estimated GFR < 60 mL/min/1.99j2Autnla Kidney Disease: Estimated GFR < 15 mL/min/1.73m2 Glucose 98 60 - 115 mg/dL [facility] Calcium 8.6 8.4 - 10.2 mg/dL [facility] Bilirubin, Total 1.2(H) 0.0 - 1.0 mg/dL [facility] Aspartate Amino Transferase 42(H) 5 - 31 U/L [facility] Alanine Aminotransferase 22 0 - 31 U/L [facility] Total Protein 6.2(L) 6.5 - 8.0 g/dL [facility] Albumin Level 2.9(L) 3.5 - 5.0 g/dL [facility] Alkaline Phosphatase 158(H) 39 - 117 U/L [facility] Blood Venous blood specimen / Unknown 12/22/2024 12:30 PM EDT 12/22/2024 1:50 PM EDT [facility] LAB BLOOD ORDERABLES Bharti l Result Performing Organization Address [facility]/ZIP Co de Phone Number [facility] [address] [place] [address] [phone] * (ABNORMAL) POCT Urinalysis (12/22/2024 12:03 PM EDT) Color, UA [place] Clarity, UA Clear Glucose, UA Negative Bilirubin, UA Negative Ketones, UA Negative Spec Grav, UA 1.025 Blood, UA Positive(A) Negative, None Detected pH, UA 6.0 Protein, UA Trace Urobilinogen, UA 1.0 Leukocytes, UA Negative Negative, Rare, Trace Nitrite, UA Negative Negative, None Detected Appearance, UA [place] QC Media Lot # [id number] Lot# Expiration Date [id number] Urine 12/22/2024 12:0 3 PM EDT Result [facility] POINT OF CARE TEST ENTER/ EDIT ORDERABLES Final Result * Culture, Urine, Routine (12/22/2024 12:00 AM EDT) Urine Urine specimen obtained by clean catch procedure / Unknown 12/22/2024 12/22/2024 Comment:UACC Narrative [facility] - 12/24/2024 10:12 AM EDT Urine Culture No growth. Specimen Source: Urine clean catch [facility] LAB MICROBIOLOGY - GENERA L ORDERABLES Final Result Performing Organization Address [facility]/ZIP Co de Phone Number [facility] [address] [place] [phone] * BI Mammogram Screening Tomosynthesis Bilateral (12/16/2024 9:46 AM EDT) Anatomical Region Laterality Modality Breast Bilateral Mammography 12/16/2024 9:46 AM EDT Narrative 12/24/2024 3:51 PM EDT ? [facility] ? [address] ?[place] [address] ?[phone] ? Mammography Report ? Signed ? Patient: Goldy,Carissa ?MR#: [id number] ? : 1965 ?Acct:[id number] ? Age/Sex: 59 / F ?ADM Date: 12/16/24 ? Loc: HO.MAMMO ? Attending Dr: Rey Bess MD ? Ordering Physician: Rey Bess MD ?Resu ?? lts: 1Negative ? Date of Service: 12/16/24 ?Follow Up: 1 Year From Orig ?? inal Mammogram ? Procedure(s): MM tomosynthesis screening BI ?? Accession Number(s): [id number] ? cc: Rey Bess MD ? EXAMINATION: [...] ??Selma Combs DO ??12/24/2024 03:48 PM EDT ? Dictated By: ?Selma Combs DO ? Signed By: ?<Electronically signed by Selma Combs, DO in OV> ? 12/24/24 1548 ? DD/ 0946 ? TD/TT: 12/16/24 1010 ? Physical Anthropologist: ? Procedure Note Fadia, Image - 12/24/2024 [facility] [address] [place] [address] Mammography Report Signed Patient: Dawna Winslow#: [id number] : 1965Acct:[id number] Age/Sex: 59 / FADM Date: 12/16/24 Loc: [facility] Attending Dr: Rey Bess MD Ordering Physician: Rey Bess MDResu lts: 1Negative Date of Service: 12/16/24Follow Up: 1 Year From Orig inal Mammogram Procedure(s): MM tomosynthesis screening BI Accession Number(s): [id number] cc: Rey Bess MD EXAMINATION: MM SCREENING [...] 12/24/24 1548 DD/ 0946 TD/TT: 12/16/24 1010 Physical Anthropologist: us Rey Ellis MD IMG BI PROCEDURES Fin al Result * (ABNORMAL) Lipid Panel with Reflex to Direct LDL (07/07/2023 9:16 AM EDT) Triglycerides 115 <150 mg/dL [facility] Comment:Desirable Triglyceri de: less than 150 mg/dLBorderline High Triglyceride 150-199 mg/dLHigh Triglyceride: 200-499 mg/dLVery High Triglyceride: greater than or equal to 5OO mg/dL Cholesterol 154 <200 mg/dL [facility] Comment:Desirable Cholestero l: less than 200 mg/dLBorderline High Cholesterol: 200-239 mg/dLHigh Cholesterol: greater than 239 mg/dL LDL Cholesterol Calculated 104(H) <100 mg/dL [facility] Comment:Desirable LDL: less than 100 mg/dLNear Optimal/Above Optimal LDL: 110- 129 mg/dLBorderline High LDL: 130-159 mg/dLHigh LDL: 160-189 mg/dLVery High LDL: greater than or equal to 190 mg/dL HDL Cholesterol 27(L) >40 mg/dL [facility] Comment:Desirable HDL: great er than 40 mg/dL Note: This HDL assay may give artificially low results in patients with liver disease. Blood 07/07/2023 9:16 AM EDT 07/07/2023 9:16 AM EDT Rey Ellis MD LAB BLOOD ORDERABLES Final Result Performing Organization Address City/[facility]/ZIP Co de Phone Number [facility] [address] [place] [address] [phone] * Hm Pap Smear (11/28/2022) Pap Negative for intraephithelial lesion or malignancy Negative for intraephithelial lesion or malignancy, Other HPV Undetected Undetected, Indeterminate, Quantitative, Not Detected Historical Provider HEALTH MAINTENANCE Final Result * HEPATITIS C AB W/REFL TO HCV RNA, QN, PCR (07/02/2021 9:13 AM EDT) HEPATITIS C ANTIBODY NON-REACT PARK NON-REACT PARK [facility] INDEX 0.01 <1.00 [facility] Comment: ?? HCV antibody was non-reactive. There is no laboratory ?? evidence of HCV infection. ?? In most cases, no further action is required. However, if recent HCV exposure is suspected, a test for HCV RNA (test code 34895) is suggested. ?? For additional information please refer to http://education.[employer] [place] [employer]ent/faq/YIK84o7 (This link is being provided for informational/ educational purposes only.) ?? 07/02/2021 9:13 AM EDT us Aziza PIERCE HISTORICAL/NON ORDERABLE LABS Fi nal Result [facility] [address] * HIV 1/2 ANTIGEN/ANTIBODY,FOURTH GENERATION W/RFL (07/02/2021 9:13 AM EDT) HIV-1/2 ANTIGEN AND ANTIBODIES, 4TH GENERATION W/ REFLEX NON-REACT PARK NON-REACT PARK [facility] Comment: HIV-1 antigen and HIV-1/HIV-2 [...] ? For additional information please refer to http://education.[facility]/faq/VAX144 (This link is being provided for informational/ educational purposes only.) ? The performance of this assay has not been clinically validated in patients less than 2 years old. ?? 07/02/2021 9:13 AM EDT Aziza Otto [facility] LAB BLOOD ORDERABLES Final Resul t [facility] [address] * Hm Colonoscopy (02/13/2015 8:32 AM EDT) Pathologist [facility] Colonoscopy Normal Normal Alpa Scott - 02/13/2015 8:32 AM EDT Recommended 10 year follow up per pcp note hyperplastic polyp Historical Provider HEALTH MAINTENANCE Edited Result - Final from Last 3 Months or Most Recently Relevant to Health Maintenance Insurance [facility] [employer] C[employer] STANDARD Care Teams Senior Planning Analyst Relationship Specialty Start Date End Date Rey Soriano MD [address] [place] [address] PCP - General Internal Medicine 07/04/14
--- OUTSIDE RECORDS SUMMARY | 2024-12-28 18:32 | XMS_ITS | Encounter Summary ---
Author Organization [employer] Address [address] [facility] 7t [place] [address] Care Team Providers Care Can Runner Name Role Phone Rey Soriano MD Primary Care Provide r Reason for Visit * Reason Onset Date Comments Nurse Triage 12/20/2024 Encounter Details Date Type Department Care Team ([facility] st Contact Info) Description 12/20/2024 Telephone [facility] [address] [place] [address] Rey Soriano MD [address] [place], [place] [phone] Nurse Triage Social History Tobacco Use Types [...] EDT Triage call returned with BLS # [id number] Nivia.Patient reports that she has increased swelling [...] 11:00 AM EDT Office Visit [facility] [address] [place] [address] Rey Soriano MD [address] [place] [address] documented as of this encounter Visit Diagnoses Not on filedocumented in this encounter Care Teams Can Runner Relationship Specialty Start Date End Date Rey Soriano MD [address] [place] [address] [phone] PCP - General Internal Medicine 07/04/14 documented as of this encounter
--- OUTSIDE RECORDS SUMMARY | 2024-12-28 18:32 | XMS_ITS | Encounter Summary ---
Author Organization [employer] [facility] Address [address] [place] [address] 7 [place] [address] Care Team Providers Care Bilingual Office Assistant Name Role Phone Rey Soriano MD Primary Care Provide r Reason for Visit * Reason Comments Med Refill Encounter Details Date Type Department Care Team (Late st Contact Info) Description 04/16/2023 Refill [facility] [address] [place], [place] [phone] Rey Soriano MD [address] [place], [place] [phone] Acute nonintractable headache, unspecified headache type Social [...] 02/08/2025 11:00 AM EDT Office Visit [facility] MEDICINE [address] [place], [place] [phone] Rey Soriano MD [address] [place], [place] [phone] documented as of this encounter Visit Diagnoses Diagnosis Acute nonintractable headache, unspecified headache type documented in this encounter Care Teams Bilingual Office Assistant Relationship Specialty Start Date End Date Rey Soriano MD [address] [place] [address] PCP - General Internal Medicine 07/04/14 documented as of this encounter
--- OUTSIDE RECORDS SUMMARY | 2024-12-28 18:32 | XMS_ITS ---
Author Organization [facility] Address [address] [place] [address] Care Team Providers Care Target Aircraft Technician Name Role Phone Ludy Ellis MD, Rey Primary Care Provide Raj Mireles [phone] Results Component Value Reference Range Notes Prothrombin Time INR Reviewed date:07/05/2024 06:13:08 PM Interpretation: Performing Lab:[facility], [address] [place] [phone] Notes/Report: Prothrombin Time 15.6 10.9-12.4 SEC INTERNATIONAL [...] Pnl Reviewed date:07/11/2024 02:14:42 PM Interpretation: Performing Lab:[facility], [address] [place] [phone] Notes/Report: Liver Fibrosis Score 0.89 Liver Fibrosis [...] a>0.62 and a<=1.00 : A3 (severe activity) FKV-Uswau-1-Macroglobulin 282 106-279 mg/dL FIB-Haptoglobin 16 43-212 mg/dL FIB-Apolipoprotein A1 70 101-198 mg/dL FIB-Total Bilirubin 1.3 0.2-1.2 mg/dL FIB-GGT 21 3-65 U/L FIB-ALT 19 6-29 U/L Reference ID [id number] Footnote SEE NOTE The reliability of results is dependent on compliance with the preanalytical and analytical conditions recommended by [employer]. The tests have to be deferred for: [...] The performance characteristics have been determined by [facility]. It has not been cleared or approved by the U.S. Food and Drug Administration. Performance characteristics refer to the analytical performance of the test. Zoomingo, the associated logo, eyeQ and all associated [employer] oden are the registered trademarks of [employer]. All third green party oden - (R) and (TM) - are the property of their respective owners. (C) 4204-9109 [employer]. All rights reserved. THIS TEST WAS PERFORMED AT: [facility] [place] [address] [place] [address] VERONIKA DELONG MD,PHD,LAURA REASON FOR VISIT LABS Problems Problem Type SNOMED Code ICD Code Onset Dates Problem Status W/U Status Risk Notes Problem GARVEY - Nonalcoholic steatohepatitis (015283656) Nonalcoholic steatohepatitis (GARVEY) (K75.81) Active confirmed Encounters Encounter Location Date Provider Diagnosis [facility] [address] [place] [address] 06/29/2024 Raj Manuel Cirrhosis K74.60 and Nonalcoholic [...] 01:00:00 PM, [address], [address], [place], [address], Progress Notes * FAY KILLIAN EDOB: [birth year] (59 yo F)Acc No.[id number]:06/29/2024 Patient:?FAY KILLIAN :1965???Age:59 Y???Sex:Female Address:[address] [place] [address], [place], [address] Subjective: * Chief Complaints: * ???LABS * [...] true * Date:? Generated for Eli pina/Murtaza/eTransmitting on:?12/28/2024 06:31 PM EDT
--- OUTSIDE RECORDS SUMMARY | 2024-12-28 18:32 | XMS_ITS | Encounter Summary ---
Author Organization [employer] Address [address] [facility] 7t [place] [address] Care Team Providers Care Accident Investigator Name Role Phone Rey Soriano MD Primary Care Provide r Reason for Visit * Reason Onset Date Comments Durable Medical Equipment 12/24/2024 Compre ssion socks Encounter Details Date Type Department Care Team ([facility] st Contact Info) Description 12/24/[address] [facility] [address] [place] [address] Rey Soriano MD [address] [place] [address] Durable Medical Equipment (Compression socks) Social History Tobacco Use Types Packs/Day Years [...] encounter Miscellaneous Notes * Telephone Encounter - Digna Levi - 12/24/2024 1:39 PM EDT DME RX for Compression stockings generated and placed on providers desk for signature. * Telephone Encounter - Digna Levi - 12/24/2024 1:39 PM EDT ----- Message from Oliver Ford sent at 12/23/2024 6:17 PM EDT ----- Hi Digna, knee high and 20-30 mmHg please and thank you! ----- Message ----- From: Digna Levi Sent: 12/23/2024 2:45 PM EDT To: Oliver Ford CNP Yes. Please confirm knee high and also 15-20mmHg or 20-30mmHg. Thank you ----- Message ----- From: Oliver Ford CNP Sent: 12/23/2024 9:33 AM EDT To: Digna Levi Good morning Digna, Can you please generate a DME for compression socks for this patient ? Thank you Oliver :) documented in this encounter Plan of Treatment Upcoming Encounters Date Type Department Care Team (Late st Contact Info) Description 02/08/2025 11:00 AM EDT Office Visit [facility] [address] [place] [address] Rey Soriano MD [address] [place] [address] documented as of this encounter Visit Diagnoses Not on filedocumented in this encounter Care Teams Accident Investigator Relationship Specialty Start Date End Date Rey Soriano MD [address] [place] [address] PCP - General Internal Medicine 07/04/14 documented as of this encounter
--- OUTSIDE RECORDS SUMMARY | 2024-12-28 18:32 | XMS_ITS | Encounter Summary ---
Author Organization [employer] [facility] Address [address] [place] [address] 7 [place] [address] Care Team Providers Care Web Administrator Name Role Phone Rey Soriano MD Primary Care Provide r Reason for Visit * Reason Onset Date Comments Nurse Triage 06/23/2023 Encounter Details Date Type Department Care Team (Late st Contact Info) Description 06/23/2023 Telephone [facility] MEDICINE [address] [place] [address] Rey Soriano MD [address] [place] [address] Nurse Triage Social History Tobacco Use Types [...] 06/23/2023 11:18 AM EDT Triage call with [employer] Medical Coding Auditor ID [id number] Pt didn't answer x2. Left message to call [facility] [phone] Triage call with [place] Medical Coding Auditor ID [id number], Pt didn't answer, left voice message to call [facility] [phone] * Telephone Encounter - Dali Ribeiro - 06/23/2023 10:47 AM EDT Symptoms: Headache, Fever (105), Cough, Sore Throat Outcome: Schedule a same-day appointment or talk to a nurse or provider today Reason: Caller denied all higher acuity questions The caller accepted this outcome Patient speaks saudi arabian documented in this encounter Plan of Treatment Upcoming Encounters Date Type Department Care Team (Late st Contact Info) Description 02/08/2025 11:00 AM EDT Office Visit [facility] MEDICINE [address] [place] [address] Rey Soriano MD [address] [place] [address] documented as of this encounter Visit Diagnoses Not on filedocumented in this encounter Care Teams Web Administrator Relationship Specialty Start Date End Date Rey Soriano MD [address] [place] [address] PCP - General Internal Medicine 07/04/14 documented as of this encounter
--- OUTSIDE RECORDS SUMMARY | 2024-12-28 18:32 | XMS_ITS | Patient Health Record ---
Author Organization [facility] Address [address] [place] [address] Care Team Providers Care Frame Assembler Name Role Phone Ludy Ellis MD, Rey Primary Care Provide r Unavailable Raj Manuel [phone] Allergies No Known Allergies Results Component Value Reference Range Notes Prothrombin Time INR Reviewed date:07/05/2024 06:13:08 PM Interpretation: Performing Lab:[facility], [address] [place] [phone] Notes/Report: Prothrombin Time 15.6 10.9-12.4 SEC INTERNATIONAL [...] Pnl Reviewed date:07/11/2024 02:14:42 PM Interpretation: Performing Lab:[facility], [address] [place] [phone] Notes/Report: Liver Fibrosis Score 0.89 Liver Fibrosis [...] a>0.62 and a<=1.00 : A3 (severe activity) QMU-Vhicu-8-Macroglobuli n 282 106-279 mg/dL FIB-Haptoglobin 16 43-212 mg/dL FIB-Apolipoprotein A1 70 101-198 mg/dL FIB-Total Bilirubin 1.3 0.2-1.2 mg/dL FIB-GGT 21 3-65 U/L FIB-ALT 19 6-29 U/L Reference ID [id number] Footnote SEE NOTE The reliability of results is dependent on compliance with the preanalytical and analytical conditions recommended by [employer]. The tests have to be deferred for: [...] The performance characteristics have been determined by [employer] [facility]. It has not been cleared or approved by the U.S. Food and Drug Administration. Performance characteristics refer to the analytical performance of the test. ShoutOut, the associated logo, Camperoo and all associated [employer] oden are the registered trademarks of [employer]. All third constitution party oden - (R) and (TM) - are the property of their respective owners. (C) 0787-4297 [employer]. All rights reserved. THIS TEST WAS PERFORMED AT: [facility] [place] [address] [place] [address] VERONIKA DELONG MD,PHD,LAURA MR abdomen wo/w con Reviewed date:03/01/2024 11:38:03 PM Interpretation: Performing Lab: Notes/Report: [address] [address] Magnetic Resonance Report Signed Patient: Carissa Killian MR#: [id number] : 1965 Acct:[id number] Age/Sex: 58 / F ADM Date: 01/15/24 Loc: .MRI Attending Dr: Raj Manuel MD Ordering Physician: Raj Manuel Date of Service: 01/15/24 Procedure(s): MR abdomen wo/w con Accession Number(s): [id number] cc: Rey Bess MD; Raj Manuel EXAMINATION: [...] in OV> 01/27/24 1532 DD/ 1017 TD/TT: Pot Builder: [address] [address] Magnetic Resonance Report Signed Patient: Susan Killian MR#: [id number] : 1965 Acct:[id number] Age/Sex: 58 / F ADM Date: 01/15/24 Loc: HO.MRI Attending Dr: Raj Manuel MD Ordering Physician: Raj Manuel Date of Service: 01/15/24 Procedure(s): MR abdomen wo/w con Accession Number(s): [id number] cc: Rey Bess MD; Raj Manuel EXAMINATION: [...] in OV> 01/27/24 1532 DD/ 1017 TD/TT: Pot Builder: Complete Blood Count Auto Di ff Reviewed date:07/05/2024 06:12:47 PM Interpretation: Performing Lab:[address] [address] Notes/Report: White Blood Count 7.6 4.8-10.8 X10*3/uL [...] Panel Reviewed date:07/05/2024 06:13:00 PM Interpretation: Performing Lab:[facility], [address] [place] [address] Notes/Report: Bilirubin Total 1.4 0.0-1.0 mg/dL Bilirubin Direct 0.6 0.0-0.5 mg/dL Slight Hem olysis Aspartate Amino Transferase 45 5-31 U/L Slight Hemolysis Alanine Aminotransferase 21 0-31 U/L Total Protein 6.6 6.5-8.0 g/dL Albumin Level 3.1 3.5-5.0 g/dL Alkaline Phosphatase 164 39-117 U/L Alpha Fetoprotein Reviewed date:07/19/2024 01:06:12 PM Interpretation: Performing Lab:[facility], [address] [place] [phone] Notes/Report: Alpha Fetoprotein 6.9 Reference Range: <6.1 The use of AFP as a tumor marker in females is not recommended. This test was performed using the Sharmaine [place] chemiluminescent method. Values obtained from different assay methods cannot be used interchangeably. AFP levels, regardless of value, should not be interpreted as absolute evidence of the presence or absence of disease. THIS TEST WAS PERFORMED AT: [facility] [address] [place] [phone] RACHAEL LAW MD Blood Urea Nitrogen Reviewed date:07/26/2024 11:02:34 PM Interpretation: Performing Lab:[facility], [address] [place] [phone] Notes/Report: Blood Urea Nitrogen 8 9-16 mg/dL Creatinine Reviewed date:07/26/2024 11:02:43 PM Interpretation: Performing Lab:[address] [address] Notes/Report: Creatinine 0.75 0.5-1.4 mg/dL Estimated Glomerular Filt Rate > 60 NOTE: For -Ugandan individuals, multiply the result by 1.210. Chronic Kidney Disease: Estimated GFR < 60 mL/min/1.73m2 Severe Kidney Disease: Estimated GFR < 15 mL/min/1.73m2 MR abdomen wo/w con Reviewed date:09/26/2024 01:24:09 PM Interpretation: Performing Lab: Notes/Report: [address] [place] [address] Magnetic Resonance Report Signed Patient: Carissa Killian MR#: [id number] : 1965 Acct:[id number] Age/Sex: 59 / F ADM Date: 07/27/24 Loc: HO.MRI Attending Dr: Raj Manuel MD Ordering Physician: Raj Manuel MD Date of Service: 07/27/24 Procedure(s): MR abdomen wo/w con Accession Number(s): [id number] cc: Rey Bess MD; Raj Manuel MD [...] 09/22/24 1549 DD/ 1126 TD/TT: 07/27/24 1146 Pot Builder: [address] [address] Magnetic Resonance Report Signed Patient: Susan Killian MR#: [id number] : 1965 Acct:[id number] Age/Sex: 59 / F ADM Date: 07/27/24 Loc: HO.MRI Attending Dr: Raj Manuel MD Ordering Physician: Raj Manuel MD Date of Service: 07/27/24 Procedure(s): MR abdomen wo/w con Accession Number(s): [id number] cc: Rey Bess MD; Raj Manuel MD [...] 09/22/24 1549 DD/ 1126 TD/TT: 07/27/24 1146 Pot Builder: Reason For Referral No Information Medications Medication [...] Status Risk Notes Problem Colon cancer screening (641419204) Colon cancer screening (Z12.11) Active confirmed Problem Epigastric pain (76357616) Epigastric abdominal pain (R10.13) Active confirmed Problem Diverticular disease of colon (632455825) Diverticulosis of large intestine without perforation or abscess without bleeding (K57.30) Active confirmed Problem GARVEY - Nonalcoholic steatohepatitis (093593988) Nonalcoholic steatohepatitis (GARVEY) (K75.81) Active confirmed Problem Gastroesophageal reflux disease (748787558) Gastroesophageal reflux disease (K21.9) Active confirmed Problem 259058163 Elevated liver function tests (R79.89) Active confirmed Problem 991699282 Fatty liver (K76.0) Active confirmed Problem Cirrhotic (761723953) Cirrhosis (K74.60) Active confirmed Problem Serum alpha-fetoprotein level elevated (423829739) 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) Active confirmed Problem Abnormal findings diagnostic imaging of liver and biliary tract (286070375) Abnormal MRI, liver (R93.2) Active confirmed Problem 151998679 LUCÍA positive (R76.8) Active confirmed Problem Portal fibrosis without cirrhosis (004253584) Liver fibrosis (K74.00) Active confirmed Vital Signs Blood pressure diastolic 00 mm Hg 07/06/2024 Height 64 in 07/06/2024 Blood pressure systolic 00 mm Hg 07/06/2024 Weight 177 lbs 07/06/2024 BMI 30.38 kg/m2 07/06/2024 Encounters Encounter Location Date Provider Diagnosis [facility] [address] [place] [phone] 03/03/2024 Raj Manuel Encounter for screen ing colonoscopy Z12.11 ; Colon polyps K63.5 ; Diverticulosis of large intestine without perforation or abscess without bleeding K57.30 ; Other hemorrhoids K64.8 ; Gastroesophageal reflux disease K21.9 ; Hiatal hernia K44.9 ; Other diseases of stomach and duodenum K31.89 ; Cirrhosis K74.60 and Abdominal pain R10.9 [facility] [address] [place] [phone] 07/06/2024 Raj Manuel Fatty liver K76.0 ; Cirrhosis K74.60 ; Elevated liver function tests R79.89 ; Gastroesophageal reflux disease K21.9 ; Colon cancer screening Z12.11 ; Elevated alpha fetoprotein R77.2 and Abnormal MRI, liver R93.2 [facility] [address] [place] [phone] 03/04/2024 Raj Manuel [facility] [address] [place] [phone] 03/10/2024 Raj Manuel [facility] [address] [place] [phone] 04/05/2024 Raj aMnuel [facility] [address] [place] [phone] 06/29/2024 Raj Manuel Cirrhosis K74.60 and Nonalcoholic steatohepatitis (GARVEY) K75.81 [facility] [address] [place] [phone] 07/19/2024 Raj Manuel Assessments Encounter Date Diagnosis [...] questions I can be of assistance with. Cairssa was comfortable with this plan. Thank you [...] Date BUN 07/06/2024 BUN 12/09/2023 LIVER PROFILE 12/22/2022 LIVER PROFILE 11/16/2021 LIVER PROFILE 12/30/2021 LIVER PROFILE 12/09/2023 LIVER PROFILE 07/29/2023 LIVER PROFILE 10/23/2022 LIVER PROFILE 11/22/2021 LIVER PROFILE 06/29/2024 LIVER PROFILE 07/16/2022 GGT 11/22/2021 IRON + IBC (FE) 11/16/2021 CBC w DIFF 06/29/2024 CBC w DIFF 11/22/2021 CBC w DIFF 12/09/2023 CBC w DIFF 07/29/2023 CBC w DIFF 11/16/2021 CBC w DIFF 10/23/2022 PROTHROMBIN TIME (PT, INR) 11/22/2021 PROTHROMBIN TIME (PT, INR) 11/16/2021 PARTIAL THROMBOPLASTIN TIME (PTT) 2021 [id number] (A1A) 11/16/2021 ALPHA-FETOPROTEIN,TUMOR MARKER 4 ALPHA-FETOPROTEIN,TUMOR MARKER [...] Name:Raj Buitrago Manuel , 02/04/2025 01:00:00 PM, [address] [place] [address], [address], [place], [address], Insurance Providers Payer Name Payer Address Payer Phone Subscriber Number Group Number Insured Name Patient Relationship to Insured Coverage Start Date Coverage End Date [facility] [address] Attn Claims [place] [id number] CARISSA KILLIAN Self - patient is the [...] being followed by Dr. Justin Crook at [facility] Hepatology Dept. Hyperlipidemia Denies OR,DM,CVA,Lung disease,renal dise ase Colonoscopy age 49-Dr. Sindhu [...]
--- OUTSIDE RECORDS SUMMARY | 2024-12-28 18:32 | XMS_ITS | Encounter Summary ---
Author Organization [employer] [facility] Address [address] [facility] 7t [place] [address] Care Team Providers Care Dye Room Helper Name Role Phone Rey Soriano MD Primary Care Provide r Encounter Details Date Type Department Care Team ([facility] st Contact Info) Description 12/24/2024 Telephone [facility] MEDICINE [address] [place] [address] Oliver Ford CNP [address] [place] [address] Social History Tobacco Use Types Packs/Day Years [...] encounter Miscellaneous Notes * Telephone Encounter - Oliver Ford CNP - 12/24/2024 8:56 AM EDT Called pt to discuss her lab results Advised pt that her labs were consistent with her liver disease. From a kidney standpoint Her labs are wnl. Advised pt to call her GI, she has appointment in February. I advised her to call them to move up her appointment to further evaluate her liver status and fluid status due to her current pedal edema. Pt agrees to do so. Confirmed that her rheum appt is next . Has f/u with PCP scheduled for 02/08/25 All questions/concerns addressed, pt appreciative of call. documented in this encounter Plan of Treatment Upcoming Encounters Date Type Department Care Team (Late st Contact Info) Description 02/08/2025 11:00 AM EDT Office Visit [facility] MEDICINE [address] [place] [address] Rey Soriano MD [address] [place] [address] documented as of this encounter Visit Diagnoses Not on filedocumented in this encounter Care Teams Dye Room Helper Relationship Specialty Start Date End Date Rey Soriano MD [address] [place] [address] PCP - General Internal Medicine 07/04/14 documented as of this encounter
--- OUTSIDE RECORDS SUMMARY | 2024-12-28 18:32 | XMS_ITS | Encounter Summary ---
Author Organization [employer] Address [address] [facility] [address] 7t [place] [address] Care Team Providers Care Edger Machine Operator Name Role Phone Rey Soriano MD Primary Care Provide r Encounter Details Date Type Department Care Team ([facility] st Contact Info) Description 12/02/2024 Telephone [facility] [address] [place] [address] Poli, Saira, OD [address] [place] [address] Social History Tobacco Use Types Packs/Day Years [...] 02/08/2025 11:00 AM EDT Office Visit [facility] MEDICINE [address] [place] [address] Rey Soriano MD [address] [place] [address] documented as of this encounter Visit Diagnoses Not on filedocumented in this encounter Care Teams Edger Machine Operator Relationship Specialty Start Date End Date Rey Soriano MD [address] [place] [address] PCP - General Internal Medicine 07/04/14 documented as of this encounter
--- OUTSIDE RECORDS SUMMARY | 2024-12-28 18:32 | XMS_ITS | Encounter Summary ---
Author Organization [employer] Address [address] [facility] 7t [place] [address] Care Team Providers Care Print Shop Assistant Name Role Phone Rey Soriano MD Primary Care Provide r Reason for Visit * Reason Comments Med Refill Encounter Details Date Type Department Care Team ([facility] st Contact Info) Description 08/12/2023 Refill [facility] MEDICINE [address] [place], [place] [phone] Rey Soriano MD [address] [place], [place] [phone] Pain Social History Tobacco Use Types Packs/Day [...] Description 02/08/2025 11:00 AM EDT Office Visit [facility] MEDICINE [address] [place] [address] Rey Soriano MD [address] [place] [address] documented as of this encounter Visit Diagnoses Diagnosis Pain Generalized pain documented in this encounter Care Teams Print Shop Assistant Relationship Specialty Start Date End Date Rey Soriano MD [address] [place] [address] PCP - General Internal Medicine 07/04/14 documented as of this encounter
--- OUTSIDE RECORDS SUMMARY | 2024-12-28 18:32 | XMS_ITS ---
Author Organization [facility] Address [address] [place] [address] Care Team Providers Care Absorption Operator Name Role Phone Ludy Ellis MD, Rey Primary Care Provide Raj Mireles [phone] Allergies No Known Allergies REASON FOR VISIT [...] diagnostic imaging of liver and biliary tract (480460685) Abnormal MRI, liver (R93.2) Active confirmed Vital Signs Blood pressure systolic 00 mm Hg 10/01/20 24 Blood pressure diastolic 00 mm Hg 024 Height 64 in 07/06/2024 Weight 177 lbs 07/06/2024 BMI 30.38 kg/m2 07/06/2024 Encounters Encounter Location Date Provider Diagnosis [facility] [address] [place] [address] 07/06/2024 Raj Manuel Fatty liver K76.0 ; [...] Elevated alpha fetoprotein (ICD-10 - R77.2) Overall, aCrissa appears well and her liver disease remained [...] Name:Raj Manuel , 02/04/2025 01:00:00 PM, [address] [facility], [address], [place], [address], Progress Notes * MARIA D CARISSA EDOB: [birth year] (59 yo F)Acc No.[id number]:07/06/2024 Progress Notes Patient:?JUNIOR KILLIANNA Tomer Provider:?Raj Manuel MD :1965???Age:59 Y???Sex:Female D ate:07/06/2024 Address:[address] [place], [place] [phone] Pcp:Rey lockwood MD Subjective: * Chief Complaints: [...] Procedure Codes:?3017F COLOR ECTAL CA SCREEN DOC QBG0895A TOBACCO [id number] BP SCR NOT PRFRM REC REASON NOS * Follow Up:?Spring 2024 * * Sign off status: Completed true * Provider:?Raj Manuel MD Date:? 024 Generated for Eli pina/Murtaza/eTransmitting on:?12/28/2024 06:32 PM EDT History and Physical Notes * HPI [...]
--- OUTSIDE RECORDS SUMMARY | 2024-12-28 18:32 | XMS_ITS | Encounter Summary ---
Author Organization [facility] Address [address] [place] [address] 7 [place] [address] Care Team Providers Care Pallet Assembler Name Role Phone Rey Soriano MD Primary Care Provide r Encounter Details Date Type Department Care Team (Late Contact Info) Description 02/06/2023 Abstract [facility] MEDICINE [address] [place] [phone] Rey Soriano MD [address] [place] [phone] Social History Tobacco Use Types Packs/Day Years [...] AM EDT Office Visit [facility] [address] [place] [address] [phone] Rey Soriano MD [address] [place] [address] documented as of this encounter Procedures Procedure Name Priority Date/Time Associated Diagnosis Comments HM COLONOSCOPY Routine 02/13/2015 8:32 AM EDT documented in this encounter Results * Colonoscopy (02/13/2015 8:32 AM EDT) Colonoscopy Normal Normal Narrative Alpa Concepcion - 02/13/2015 8:32 AM EDT Recommended 10 year follow up per pcp note hyperplastic polyp us Historical Provider [facility] Edited Result - Final documented in this encounter Visit Diagnoses Not on filedocumented in this encounter Care Teams Pallet Assembler Relationship Specialty Start Date End Date Rey Soriano MD [address] [place] [address] PCP - General Internal Medicine 07/04/14 documented as of this encounter
== END 2024-12-28 15:25 | disposition home or self-care (01) ==
PROVIDERS: PCP Internal Medicine; Visit Provider Student in an Organized Health Care Education/Training Program
DX: R76.8 Other specified abnormal immunological findings in serum (principal)
CPT/HCPCS: 99214; G2211

== ENCOUNTER → 2024-12-28 14:46 | Outpatient (BNVA) | payer OTHER, SELFPAY | PROVIDERS: PCP Internal Medicine; Visit Provider Student in an Organized Health Care Education/Training Program | DX: R76.8 Other specified abnormal immunological findings in serum (principal) | CPT/HCPCS: 99212 ==

== ENCOUNTER 2025-01-12 14:43 | Outpatient (REF) | payer OTHER, SELFPAY ==
[2025-01-12 15:13] LABS: MANUAL DIFF FLAG NO
[2025-01-12 15:39] LABS: Basophils Absolute Auto 0.1 X10*3/uL (0.0-0.2); Basophils Percent Auto 0.8 % (0-2); Eosinophils Absolute Auto 0.3 X10*3/uL (0.0-0.4); Eosinophils Percent Auto 4.6 % (0-4); Hematocrit 33.5 % (37.0-47.0); Hemoglobin 10.4 g/dl (12.0-16.0); Imm Gran Abs Auto 0.03 X10*3/uL (0.00-0.03); Imm Gran Pct Auto 0.5 % (0.0-0.4); Lymphocytes Absolute Auto 1.5 X10*3/uL (1.2-4.9); Lymphocytes Percent Auto 23.3 % (20-40); Mean Corpuscular Hemoglobin 26.8 pg (27.0-33.0); Mean Corpuscular Volume 86.3 fL (80.0-98.0); Mean Platelet Volume 11.9 fL (9.4-12.3); Monocytes Absolute Auto 0.5 X10*3/uL (0.1-1.2); Monocytes Percent Auto 8.1 % (2-11); Neutrophils Absolute Auto 4.1 x10*3/uL (2.0-8.3); Neutrophils Percent Auto 62.7 % (45-73); Platelet Count 116 X10*3/uL (160-400); Red Blood Count 3.88 X10*6/uL (4.20-5.50); Red Cell Distribution Width 18.9 % (11.0-16.0); White Blood Count 6.6 X10*3/uL (4.8-10.8)
[2025-01-12 15:42] LABS: Appearance Urine Clear; Color Urine Dark Yellow; Glucose Urine UA Negative (Negative); Leukocyte Esterase Urine Negative (Negative); Nitrite Urine Negative (Negative); PH 6.5 (5.0-9.0); Specific Gravity - Urine 1.025 (1.005-1.025); Urine Blood Negative (Negative); Urine Ketones Negative (Negative); Urine Protein Negative (Neg-Trace)
[2025-01-12 15:47] LABS: Bacteria Urine None Seen (None Seen); Hyaline Casts Urine 0-2 /LPF (0-2); RBC Urine 0-2 /HPF (0-2); Squamous Epithelial Cell Urine 0-2 /HPF (0-2); WBC Urine 0-5 /HPF (0-5)
[2025-01-12 16:20] LABS: Erythrocyte Sedimentation Rate 10 MM/HR (0-20)
[2025-01-12 16:33] LABS: Creatinine Urine 149.17 mg/dL; Total Protein Urine Random < 7 mg/dL (<12)
[2025-01-12 16:36] LABS: Alanine Aminotransferase 11 U/L (0-31); Anion Gap 9 (12-20); Aspartate Amino Transferase 36 U/L (5-31); Bilirubin Total 1.6 mg/dL (0.0-1.0); Blood Urea Nitrogen 9 mg/dL (9-16); C Reactive Protein 0.77 mg/dL (< or = 0.50); Calcium 8.8 mg/dL (8.4-10.2); Carbon Dioxide 25 mmol/L (22-29); Chloride 111 mmol/L (96-108); Estimated Glomerular Filt Rate > 60; Glucose Random 92 mg/dL (60-115); Iron 84 mcg/dL (30-160); Percent Iron Saturation 24 % (15-50); Potassium 4.2 mmol/L (3.3-5.1); Sodium 141 mmol/L (135-145); Total Iron Binding Capacity 346 mcg/dL (228-428); Total Protein 5.8 g/dL (6.5-8.0); Unsaturated Iron Binding 262 ug/dL
[2025-01-12 16:55] LABS: Alkaline Phosphatase 145 U/L (39-117)
--- OUTSIDE RECORDS SUMMARY | 2025-01-12 16:57 | XMS_ITS | Encounter Summary ---
Author Organization [employer] [facility] Address [address] [place] [address] 7 [place] [address] Care Team Providers Care Revival Clerk Name Role Phone Rey Soriano MD Primary Care Provide r Encounter Details Date Type Department Care Team (Late Contact Info) Description 02/06/2023 Abstract [facility]INE [address] [place] [address] [phone] Rey Soriano MD [address] [place] [address] [phone] Social History Tobacco Use Types Packs/Day Years [...] Care Team (Late st Contact Info) Description 01/27/2025 2:30 PM EDT Office Visit [facility] [address] [place] [address] [phone] Rey Soriano MD [address] [place] [phone] documented as of this encounter Procedures Procedure Name Priority Date/Time Associated Diagnosis Comments HM COLONOSCOPY Routine 02/13/2015 8:32 AM EDT documented in this encounter Results * Colonoscopy (02/13/2015 8:32 AM EDT) Colonoscopy Normal Normal Narrative Alpa Concepcion - 02/13/2015 8:32 AM EDT Recommended 10 year follow up per pcp note hyperplastic polyp us Historical Provider [facility] Edited Result - Final documented in this encounter Visit Diagnoses Not on filedocumented in this encounter Care Teams Revival Clerk Relationship Specialty Start Date End Date Rey Soriano MD [address] [place] [phone] PCP - General Internal Medicine 07/04/14 documented as of this encounter
--- OUTSIDE RECORDS SUMMARY | 2025-01-12 16:57 | XMS_ITS | Encounter Summary ---
Author Organization [employer] [facility] Address [address] [place] [address] 7 [place] [address] Care Team Providers Care Wheel Mill Operator Name Role Phone Rey Soriano MD Primary Care Provide r Reason for Visit * Reason Comments Med Refill Encounter Details Date Type Department Care Team (Late st Contact Info) Description 04/16/2023 Refill [facility] [address] [place], [place] [phone] Rey Soriano MD [address] [place], [place] [phone] Acute nonintractable headache, unspecified headache type Social [...] Description 01/27/2025 2:30 PM EDT Office Visit [facility] [address] [place], [place] [phone] Rey Soriano MD [address] [place], [place] [phone] documented as of this encounter Visit Diagnoses Diagnosis Acute nonintractable headache, unspecified headache type documented in this encounter Care Teams Wheel Mill Operator Relationship Specialty Start Date End Date Rey Soriano MD [address] [place] [phone] PCP - General Internal Medicine 07/04/14 documented as of this encounter
--- OUTSIDE RECORDS SUMMARY | 2025-01-12 16:57 | XMS_ITS | Clinical Summary ---
Author Organization [employer] Address [address] [place] [address] 7t [place] [address] Care Team Providers Care Corner Brace Block Machine Operator Name Role Phone Rey Soriano [...] MG capsule daily. Acti ve sodium chloride ([place] Nasal [place]) 0.65 % nasal sprayIndications:N angus congestion 1-2 [...] Under the care of liver clinic at [facility] Dr Justin Crook Elevated antinuclear antibody (LUCÍA) [...] sexually active pre-menopausal Pt was evaluated by [facility] who recommended to proceed with Transvaginal US [...] the care of Dr Justin Rehman at [facility]. Last seen in 2022 had EGD that [...] HIV being followed by PrEP navigator at [facility] care 10/01/2022 Assessment & Plan (07/01/2023 [...] personal goal for weight loss. Seen by Golf Course Superintendent twice Will repeat Lipid profile Assessment & [...] personal goal for weight loss. Seen by Golf Course Superintendent twice Microscopic hematuria 07/06/2012 Assessment & Plan [...] Encounters Date Type Department Care Team Description 01/12/2025 Orders Only GENERIC EXTERNAL DATA DEPARTMENT Provider, Generic External Data 12/24/[address] [address] Rey Soriano MD Durable Medical Equipment (Compression socks) 12/24/[address] [address] Oliver Ford CNP 12/23/2024 Orders Only [address] [phone] Oliver Ford CNP Other cirrhosis of liver (CMS/HCC) (Primary Dx) 12/23/[address] [address] Rey Soriano MD Lab Orders 12/22/2024 11:00 AM EDT Office Visit [address] [address] Oliver Ford CNP Other cirrhosis of liver (CMS/HCC) (Primary Dx) 12/22/2024 Travel 12/20/[address] [place] [address] Rey Soriano MD Nurse Triage 12/16/2024 Orders Only [facility] [address] [place] [address] Rey Soriano MD 12/02/2024 Telephone [facility] OPTOMETRY [address] [place] [address] Saira Ashton, OD 10/21/2024 12:10 PM EST Immunization [facility] [address] [place] [address] Ashley Norwood RN Encounter for immunization 10/21/2024 [...] Description 01/27/2025 2:30 PM EDT Office Visit [facility] [address] [facility] [place] [address] Rey Soriano MD [address] [facility] [place] [address] Health Maintenance Due Date Last Done Comments [...] 02/13/2025 02/13/2015 Colorectal Cancer Screening 02/13/2025 Mammogram 12/16/2025 12/16/2024, 11/07, 11/26/2022, Additional history exists Tobacco Screening 12/22/2025 12/22/2024 [...] Procedure Name Priority Date/Time Associated Diagnosis Comments C-REACTIVE PROTEIN Routine 01/12/2025 3: 09 PM EDT IRON AND TOTAL IRON BINDING CAPACITY Routine 01/12/2025 3:09 PM EDT COMPREHENSIVE METABOLIC PANEL Routine 01/12/2025 3:09 PM EDT SED RATE BY MODIFIED WESTERGREN Routine 01/12/2025 3:09 PM EDT DIRECT ANTIGLOBULIN TEST (MENG) Routine 01/12/2025 3:09 PM EDT CBC WITH AUTO DIFFERENTIAL Routine 01/12/2025 3:09 PM EDT PROTEIN CREATININE RATIO, URINE Routine 01/12/2025 3:03 PM EDT URINALYSIS, COMPLETE Routine 01/12/2025 3:03 PM EDT CBC WITH AUTO DIFFERENTIAL Routine 12/22/2024 12:30 [...] Maintenance Results * (ABNORMAL) CBC auto differential (01/12/2025 3:09 PM EDT) Only the most recent of2 resultswithin the time period is included. White Blood Count 6.6 4.8 - 10.8 X10*3/uL [facility] Red Blood Count 3.88(L) 4.20 - 5.50 X10*6/uL [facility] Hemoglobin 10.4(L) 12.0 - 16.0 g/dl [facility] Hematocrit 33.5(L) 37.0 - 47.0 % [facility] Mean Corpuscular Volume 86.3 80.0 - 98.0 fL [facility] Mean Corpuscular Hemoglobin 26.8(L) 27.0 - 33.0 pg [facility] Mean Corpuscular HGB Conc 31.0 31.0 - 35.0 g/dl [facility] Red Cell Distribution Width 18.9(H) 11.0 - 16.0 % [facility] Platelet Count 116(L) 160 - 400 X10*3/uL [facility] Mean Platelet Volume 11.9 9.4 - 12.3 fL [facility] Neutrophils Percent Auto 62.7 45 - 73 % [facility] Imm Gran Pct Auto 0.5(H) 0.0 - 0.4 % [facility] Lymphocytes Percent Auto 23.3 20 - 40 % [facility] Monocytes Percent Auto 8.1 2 - 11 % [facility] Eosinophils Percent Auto 4.6(H) 0 - 4 % [facility] Basophils Percent Auto 0.8 0 - 2 % [facility] NRBC Pct Auto 0.0 0.0 - 0.2 /100WBC [facility] Neutrophils Absolute Auto 4.1 2.0 - 8.3 x10*3/uL [facility] Imm Gran Abs Auto 0.03 0.00 - 0.03 X10*3/uL [facility] Lymphocytes Absolute Auto 1.5 1.2 - 4.9 X10*3/uL [facility] Monocytes Absolute Auto 0.5 0.1 - 1.2 X10*3/uL [facility] Eosinophils Absolute Auto 0.3 0.0 - 0.4 X10*3/uL [facility] Basophils Absolute Auto 0.1 0.0 - 0.2 X10*3/uL [facility] NRBC Abs Auto 0.000 0.0 - 0.012 X10*3/uL [facility] 01/12/2025 3:09 PM EDT 01/12/2025 3:09 PM EDT us Generic External Data Provider LAB BLOOD ORDERAB LES Final Result [facility] [address] [place] [address] [phone] * Sed Rate by Abigail Hernandez (01/12/2025 3:09 PM EDT) Erythrocyte Sedimentation Rate 10 0 - 20 MM/HR [facility] Comment:Patients with polycy themia and many hemoglobin abnormalitiesmay have depressed sed rates whereas patients with anemiamay have elevated sed rates. 01/12/2025 3:09 PM EDT 01/12/2025 3:09 PM EDT Generic External Data Provider LAB BLOOD ORDERAB LES Final Result Performing Organization Address [facility] Co de Phone Number [facility] [address] [place] [phone] * Direct Antiglobulin Test (MENG) (01/12/2025 3:09 PM EDT) Pathologist [facility] MENG Result Polyspecific NEGATIVE [facility] MENG Result Comment TNP [facility] Comment:Test not indicated 01/12/2025 3:09 PM EDT 01/12/2025 3:33 PM EDT Generic External Data Provider LAB BLOOD ORDERAB LES Final Result Performing Organization Address [facility] de Phone Number [facility] [address] [place] [phone] * Protein Creatinine Ratio, Urine (01/12/2025 3:03 PM EDT) Pathologist [facility] Creatinine, Urine 149.17 mg/dL [facility] Protein, Total, Random Urine <7 <12 mg/dL [facility] Protein/Creatin ine Ratio, Ur TNP <0.2 [facility] Comment:Unable to calculate urine protein creatinine ratio due tolow creatinine or protein result. 01/12/2025 3:03 PM EDT 01/12/2025 3:36 PM EDT Generic External Data Provider LAB URINE ORDERAB LES Final Result Performing Organization Address [facility] Co de Phone Number [facility] [address] [place] [address] [phone] * Urinalysis Complete (01/12/2025 3:03 PM EDT) Color Urine Dark Yellow [facility] Appearance Urine Clear [facility] PH 6.5 5.0 - 9.0 [facility] Glucose Urine UA Negative Negative mg/dL [facility] Urine Blood Negative Negative [facility] Specific [place] - Urine 1.025 1.005 - 1.025 [facility] Urine Protein Negative Neg-Trace mg/dL [facility] Urine Ketones Negative Negative mg/dL [facility] Nitrite Urine Negative Negative [facility] Leukocyte Esterase Urine Negative Negative [facility] RBC Urine 0-2 0 - 2 /HPF [facility] Urine WBC 0-5 0 - 5 /HPF [facility] Urine Squamous Epithelial Cell 0-2 0 - 2 /HPF [facility] Urine Bacteria None Seen None Seen [facility] Hyaline Casts, Urine 0-2 0 - 2 /LPF [facility] 01/12/2025 3:03 PM EDT 01/12/2025 3:36 PM EDT Narrative [facility] - 01/12/2025 3:54 PM EDT Urine, Clean Catch us Generic External Data Provider LAB URINE ORDERAB LES Final Result [facility] [address] [place] [phone] * (ABNORMAL) Comprehensive Metabolic Panel (12/22/2024 12:30 PM EDT) Sodium 142 135 - 145 mmol/L [facility] Potassium 3.9 3.3 - 5.1 mmol/L [facility] Chloride 113(H) 96 - 108 mmol/L [facility] Carbon Dioxide 25 22 - 29 mmol/L [facility] Anion Gap 8(L) 12 - 20 [facility] Urea Nitrogen (BUN) 9 9 - 16 mg/dL [facility] Creatinine, Serum 0.65 0.5 - 1.4 mg/dL [facility] Estimated Glomerular Filt Rate >60 [facility] Comment:Chronic Kidney Disea se: Estimated GFR < 60 mL/min/1.24d5Bdaicf Kidney Disease: Estimated GFR < 15 mL/min/1.73m2 Glucose 98 60 - 115 mg/dL [facility] Calcium 8.6 8.4 - 10.2 mg/dL [facility] Bilirubin, Total 1.2(H) 0.0 - 1.0 mg/dL [facility] Aspartate Amino Transferase 42(H) 5 - 31 U/L [facility] Alanine Aminotransferase 22 0 - 31 U/L [facility] Total Protein 6.2(L) 6.5 - 8.0 g/dL [facility] Albumin Level 2.9(L) 3.5 - 5.0 g/dL [facility] Alkaline Phosphatase 158(H) 39 - 117 U/L [facility] Blood Venous blood specimen / Unknown 12/22/2024 12:30 PM EDT 12/22/2024 1:50 PM EDT [facility] LAB BLOOD ORDERABLES Bharti l Result [facility] [address] [place] [phone] * (ABNORMAL) POCT Urinalysis (12/22/2024 12:03 PM EDT) Color, UA [place] Clarity, UA Clear Glucose, UA Negative Bilirubin, UA Negative Ketones, UA Negative Spec Grav, UA 1.025 Blood, UA Positive(A) Negative, None Detected pH, UA 6.0 Protein, UA Trace Urobilinogen, UA 1.0 Leukocytes, UA Negative Negative, Rare, Trace Nitrite, UA Negative Negative, None Detected Appearance, UA [place] QC Media Lot # [id number] Lot# Expiration Date [id number] Urine 12/22/2024 12:0 3 PM EDT [facility] POINT OF CARE TEST ENTER/ EDIT ORDERABLES Final Result * Culture, Urine, Routine (12/22/2024 12:00 AM EDT) Urine Urine specimen obtained by clean catch procedure / Unknown 12/22/2024 12/22/2024 Comment:UACC Narrative [facility] - 12/24/2024 10:12 AM EDT Urine Culture No growth. Specimen Source: Urine clean catch [facility] LAB MICROBIOLOGY - GENERA L ORDERABLES Final Result [facility] [address] [place] [address] [phone] * BI Mammogram Screening Tomosynthesis Bilateral (12/16/2024 9:46 AM EDT) Anatomical Region Laterality Modality Breast Bilateral Mammography 12/16/2024 9:46 AM EDT Narrative 12/24/2024 3:51 PM EDT ? [facility] [place] ? [address] ?[place] [address] ?[phone] ? Mammography Report ? Signed ? Patient: Magriz,Carissa ?MR#: [id number] ? : 1965 ?Acct:[id number] ? Age/Sex: 59 / F ?ADM Date: 12/16/24 ? Loc: HO.MAMMO ? Attending Dr: Rey Bess MD ? Ordering Physician: Rey Bess MD ?Resu ?? lts: 1Negative ? Date of Service: 12/16/25 ?Follow Up: 1 Year From Orig ?? inal Mammogram ? Procedure(s): MM tomosynthesis screening BI ?? Accession Number(s): [id number] ? cc: Rey Bess MD ? EXAMINATION: [...] DD/ 0946 ? TD/TT: 12/16/24 1010 ? Field Operator: ? Procedure Note Nicolasa Loaiza - 12/24/2024 [place] [facility] [address] [place] [address] Mammography Report Signed Patient: Annette WinslownaMR#: [id number] : 1965Acct:[id number] Age/Sex: 59 / FADM Date: 12/16/24 Loc: HO.MAMMO Attending Dr: Rey Bess MD Ordering Physician: Rey Bess MDResu lts: 1Negative Date of Service: 12/16/24Follow Up: 1 Year From Orig inal Mammogram Procedure(s): MM tomosynthesis screening BI Accession Number(s): [id number] cc: Rey Bess MD EXAMINATION: MM SCREENING [...] Selma Combs DO 12/24/2024 03:48 PM EDT Dictated By: Selma Combs DO Signed By: <Electronically signed by Selma Combs DO in OV> 12/24/24 1548 DD/ 0946 TD/TT: 12/16/24 1010 Field Operator: us Rey Ellis MD IMG BI PROCEDURES Fin al Result * (ABNORMAL) Lipid Panel with Reflex to Direct LDL (07/07/2023 9:16 AM EDT) Triglycerides 115 <150 mg/dL [facility] Comment:Desirable Triglyceri de: less than 150 mg/dLBorderline High Triglyceride 150-199 mg/dLHigh Triglyceride: 200-499 mg/dLVery High Triglyceride: greater than or equal to 5OO mg/dL Cholesterol 154 <200 mg/dL [facility] Comment:Desirable Cholestero l: less than 200 mg/dLBorderline High Cholesterol: 200-239 mg/dLHigh Cholesterol: greater than 239 mg/dL LDL Cholesterol Calculated 104(H) <100 mg/dL [facility] Comment:Desirable LDL: less than 100 mg/dLNear Optimal/Above Optimal LDL: 110- 129 mg/dLBorderline High LDL: 130-159 mg/dLHigh LDL: 160-189 mg/dLVery High LDL: greater than or equal to 190 mg/dL HDL Cholesterol 27(L) >40 mg/dL [facility] Comment:Desirable HDL: great er than 40 mg/dL Note: This HDL assay may give artificially low results in patients with liver disease. Blood 07/07/2023 9:16 AM EDT 07/07/2023 9:16 AM EDT Rey Ellis MD LAB BLOOD ORDERABLES Final Result [facility] [address] [place] [phone] * Hm Pap Smear (11/28/2022) Pap Negative for intraephithelial lesion or malignancy Negative for intraephithelial lesion or malignancy, Other HPV Undetected Undetected, Indeterminate, Quantitative, Not Detected [facility] Provider HEALTH MAINTENANCE Final Result * HEPATITIS [...] a test for HCV RNA (test code 03989) is suggested. ?? For additional information please refer to http://[employer].edjing/faq/GLQ58u9 (This link is being provided for informational/ educational purposes only.) ?? 07/02/2021 9:13 AM EDT us Aziza Otto ANP HISTORICAL/NON ORDERABLE LABS Fi nal Result Performing Organization Address [facility] Phone Number [facility] [address] [place] [address], * HIV 1/2 ANTIGEN/ANTIBODY,FOURTH GENERATION W/RFL (07/02/2021 9:13 AM EDT) HIV-1/2 ANTIGEN AND ANTIBODIES, 4TH GENERATION W/ REFLEX NON-REACT PARK NON-REACT PARK [facility] Comment: HIV-1 antigen and HIV-1/HIV-2 [...] ? For additional information please refer to http://[employer].edjing/faq/KEV922 (This link is being provided for informational/ educational purposes only.) ? The performance of this assay has not been clinically validated in patients less than 2 years old. ?? 07/02/2021 9:13 AM EDT us Aziza Otto ANP LAB BLOOD ORDERABLES Final Resul t Performing Organization Address [facility] Phone Number [facility] [address] [place] [address], [place] * Hm Colonoscopy (02/13/2015 8:32 AM EDT) Colonoscopy Normal Normal Narrative Alpa Concepcion - 02/13/2015 8:32 AM EDT Recommended 10 year follow up per pcp note hyperplastic polyp us Historical Provider HEALTH MAINTENANCE Edited Result - Final from Last 3 Months or Most Recently Relevant to Health Maintenance Insurance [facility] Member Subscriber Plan / Payer (Ef fective 2020-Present) Name:Carissa Winslow Relation to Subscriber:Self Name:Carissa Winslow Payer ID:Not on file Group ID:[id number] Type:Not on file Address: [address] STANDARD Care Teams Corner Brace Block Machine Operator Relationship Specialty Start Date End Date Rey Soriano MD [address] [place] [address] PCP - General Internal Medicine 07/04/14
--- OUTSIDE RECORDS SUMMARY | 2025-01-12 16:57 | XMS_ITS | Encounter Summary ---
Author Organization [employer] [facility] Address [address] [place] [address] 7 [place] [address] Care Team Providers Care Zoology Teacher Name Role Phone Rey Soriano MD Primary Care Provide r Reason for Visit * Reason Comments Med Refill Encounter Details Date Type Department Care Team (Late st Contact Info) Description 05/14/2023 Refill [facility] [address] [place], [place] [phone] Chiquis Kumar MD [address] [place], [place] [phone] Acute nonintractable headache, unspecified headache type Social [...] Department Care Team (Late Contact Info) Description 01/27/2025 2:30 PM EDT Office Visit [facility] [address] [place], [place] [phone] Rey Soriano MD [address] [place], [place] [phone] documented as of this encounter Visit Diagnoses Diagnosis Acute nonintractable headache, unspecified headache type documented in this encounter Care Teams Zoology Teacher Relationship Specialty Start Date End Date Rey Soriano MD [address] [place] [phone] PCP - General Internal Medicine 07/04/14 documented as of this encounter
--- OUTSIDE RECORDS SUMMARY | 2025-01-12 16:57 | XMS_ITS | Encounter Summary ---
Author Organization [employer] [facility] Address [address] [place] [address] 7 [place] [address] Care Team Providers Care Director Global Market Research Name Role Phone Rey Soriano MD Primary Care Provide r Reason for Visit * Reason Onset Date Comments Nurse Triage 06/23/2023 Encounter Details Date Type Department Care Team (Late st Contact Info) Description 06/23/2023 Telephone [facility] [address] [place] [address] Rey Soriano MD [address] [place] [address] Nurse Triage Social History Tobacco Use Types [...] 06/23/2023 11:18 AM EDT Triage call with [employer] Meat Counter Worker ID [id number] Pt didn't answer x2. Left message to call [facility] [phone] Triage call with [employer] Counter Worker ID [id number], Pt didn't answer, left voice message to call [facility] [phone] * Telephone Encounter - Dali Ribeiro - 06/23/2023 10:47 AM EDT Symptoms: Headache, Fever (105), Cough, Sore Throat Outcome: Schedule a same-day appointment or talk to a nurse or provider today Reason: Caller denied all higher acuity questions The caller accepted this outcome Patient speaks israeli documented in this encounter Plan of Treatment Upcoming Encounters Date Type Department Care Team (Late st Contact Info) Description 01/27/2025 2:30 PM EDT Office Visit [facility] [address] [place] [phone] Rey Soriano MD [address] [place] [phone] documented as of this encounter Visit Diagnoses Not on filedocumented in this encounter Care Teams Director Global Market Research Relationship Specialty Start Date End Date Rey Soriano MD [address] [place] [phone] PCP - General Internal Medicine 07/04/14 documented as of this encounter
--- OUTSIDE RECORDS SUMMARY | 2025-01-12 16:57 | XMS_ITS | Encounter Summary ---
Author Organization [email or web address] [facility] Address [address] [place] [address] 7t [place] [address] Care Team Providers Care Commercial Credit Specialist Name Role Phone Rey Soriano MD Primary Care Provide r Encounter Details Date Type Department Care Team ([facility] Contact Info) Description 09/23/2022 Telephone [facility] [address] [place] [address] [phone] Rey Soriano MD [address] [place] [address] [phone] Social History Tobacco Use Types Packs/Day Years [...] Description 01/27/2025 2:30 PM EDT Office Visit [facility] [address] [place] [address] [phone] Rey Soriano MD [address] [place], [place] [phone] documented as of this encounter Visit Diagnoses Not on filedocumented in this encounter Care Teams Commercial Credit Specialist Relationship Specialty Start Date End Date Rey Soriano MD [address] [place] [address] PCP - General Internal Medicine 07/04/14 documented as of this encounter
--- OUTSIDE RECORDS SUMMARY | 2025-01-12 16:57 | XMS_ITS | Encounter Summary ---
Author Organization [employer] Address [address] [facility] 7t [place] [address] Care Team Providers Care Electronic Integrated Systems Mechanic Name Role Phone Rey Soriano MD Primary Care Provide r Encounter Details Date Type Department Care Team ([facility] st Contact Info) Description 01/12/2025 Orders Only GENERIC EXTERNAL DATA DEPARTMENT Provider, Generic External Data Social History Tobacco Use Types Packs/Day Years [...] Description 01/27/2025 2:30 PM EDT Office Visit [facility] [address] [place] [address] Rey Soriano MD [address] [place] [address] Pending Results Name Type Priority Associated Diagnoses Date /Time Comprehensive Metabolic Panel Lab Routine 01/12/2025 3:09 PM EDT Iron And Total Iron Binding Capacity Lab Routine 01/12/2025 3:09 PM EDT C-reactive Protein Lab Routine 2024 3:09 PM EDT documented as of this encounter Procedures Procedure Name Priority Date/Time Associated Diagnosis Comments CBC WITH AUTO DIFFERENTIAL Routine 01/12/2025 3:09 PM EDT IRON AND TOTAL IRON BINDING CAPACITY Routine 01/12/2025 3:09 PM EDT SED RATE BY MODIFIED WESTERGREN Routine 01/12/2025 3:09 PM EDT DIRECT ANTIGLOBULIN TEST (MENG) Routine 01/12/2025 3:09 PM EDT C-REACTIVE PROTEIN Routine 01/12/2025 3: 09 PM EDT COMPREHENSIVE METABOLIC PANEL Routine 01/12/2025 3:09 PM EDT PROTEIN CREATININE RATIO, URINE Routine 01/12/2025 3:03 PM EDT URINALYSIS, COMPLETE Routine 01/12/2025 3:03 PM EDT documented in this encounter Results * Sed Rate by Modified Westergren (01/12/2025 3:09 PM EDT) Pathologist [facility] Erythrocyte Sedimentation Rate 10 0 - 20 MM/HR [facility] Comment:Patients with polycy themia and many hemoglobin abnormalitiesmay have depressed sed rates whereas patients with anemiamay have elevated sed rates. 01/12/2025 3:09 PM EDT 01/12/2025 3:09 PM EDT Generic External Data Provider LAB BLOOD ORDERAB LES Final Result Performing Organization Address City/[facility]/ZIP Co de Phone Number [facility] [address] [place] [address] [phone] * Direct Antiglobulin Test (MENG) (01/12/2025 3:09 PM EDT) [facility] MENG Result Polyspecific NEGATIVE [facility] MENG Result Comment TNP [facility] Comment:Test not indicated 01/12/2025 3:09 PM EDT 01/12/2025 3:33 PM EDT Generic External Data Provider LAB BLOOD ORDERAB LES Final Result Performing Organization Address City/[facility] Co de Phone Number [facility] [address] [place] [phone] * (ABNORMAL) CBC auto differential (01/12/2025 3:09 PM EDT) [facility] White Blood Count 6.6 4.8 - 10.8 X10*3/uL [facility] Red Blood Count 3.88(L) 4.20 - 5.50 X10*6/uL [facility] Hemoglobin 10.4(L) 12.0 - 16.0 g/dl [facility] Hematocrit 33.5(L) 37.0 - 47.0 % [facility] Mean Corpuscular Volume 86.3 80.0 - 98.0 fL [facility] Mean Corpuscular Hemoglobin 26.8(L) 27.0 - 33.0 pg [facility] Mean Corpuscular HGB Conc 31.0 31.0 - 35.0 g/dl [facility] Red Cell Distribution Width 18.9(H) 11.0 - 16.0 % [facility] Platelet Count 116(L) 160 - 400 X10*3/uL [facility] Mean Platelet Volume 11.9 9.4 - 12.3 fL [facility] Neutrophils Percent Auto 62.7 45 - 73 % [facility] Imm Gran Pct Auto 0.5(H) 0.0 - 0.4 % [facility] Lymphocytes Percent Auto 23.3 20 - 40 % [facility] Monocytes Percent Auto 8.1 2 - 11 % [facility] Eosinophils Percent Auto 4.6(H) 0 - 4 % [facility] Basophils Percent Auto 0.8 0 - 2 % [facility] NRBC Pct Auto 0.0 0.0 - 0.2 /100WBC [facility] Neutrophils Absolute Auto 4.1 2.0 - 8.3 x10*3/uL [facility] Imm Gran Abs Auto 0.03 0.00 - 0.03 X10*3/uL [facility] Lymphocytes Absolute Auto 1.5 1.2 - 4.9 X10*3/uL [facility] Monocytes Absolute Auto 0.5 0.1 - 1.2 X10*3/uL [facility] Eosinophils Absolute Auto 0.3 0.0 - 0.4 X10*3/uL [facility] Basophils Absolute Auto 0.1 0.0 - 0.2 X10*3/uL [facility] NRBC Abs Auto 0.000 0.0 - 0.012 X10*3/uL [facility] 01/12/2025 3:09 PM EDT 01/12/2025 3:09 PM EDT us Generic External Data Provider LAB BLOOD ORDERAB LES Final Result [facility] [address] [place] [phone] * Protein Creatinine Ratio, Urine (01/12/2025 3:03 PM EDT) Creatinine, Urine 149.17 mg/dL [facility] Protein, Total, Random Urine <7 <12 mg/dL [facility] Protein/Creatin ine Ratio, Ur TNP <0.2 [facility] Comment:Unable to calculate urine protein creatinine ratio due tolow creatinine or protein result. 01/12/2025 3:03 PM EDT 01/12/2025 3:36 PM EDT us Generic External Data Provider LAB URINE ORDERAB LES Final Result [facility] [address] [place] [phone] * Urinalysis Complete (01/12/2025 3:03 PM EDT) Color Urine Dark Yellow [facility] Appearance Urine Clear [facility] PH 6.5 5.0 - 9.0 [facility] Glucose Urine UA Negative Negative mg/dL [facility] Urine Blood Negative Negative [facility] Specific [place] - Urine 1.025 1.005 - 1.025 [facility] Urine Protein Negative Neg-Trace mg/dL [facility] Urine Ketones Negative Negative mg/dL [facility] Nitrite Urine Negative Negative [facility] Leukocyte Esterase Urine Negative Negative [facility] RBC Urine 0-2 0 - 2 /HPF [facility] Urine WBC 0-5 0 - 5 /HPF [facility] Urine Squamous Epithelial Cell 0-2 0 - 2 /HPF [facility] Urine Bacteria None Seen None Seen [facility] Hyaline Casts, Urine 0-2 0 - 2 /LPF [facility] 01/12/2025 3:03 PM EDT 01/12/2025 3:36 PM EDT Narrative [facility] - 01/12/2025 3:54 PM EDT Urine, Clean Catch us Generic External Data Provider LAB URINE ORDERAB LES Final Result [facility] [address] [place] [phone] documented in this encounter Visit Diagnoses Not on filedocumented in this encounter Care Teams Electronic Integrated Systems Mechanic Relationship Specialty Start Date End Date Rey Soriano MD [address] [place] [phone] PCP - General Internal Medicine 07/04/14 documented as of this encounter
--- OUTSIDE RECORDS SUMMARY | 2025-01-12 16:57 | XMS_ITS | Encounter Summary ---
Author Organization [employer] Address [address] [facility] 7t [place] [address] Care Team Providers Care Pension Examiner Name Role Phone Rey Soriano MD Primary Care Provide r Reason for Visit * Reason Comments Med Refill Encounter Details Date Type Department Care Team ([facility] st Contact Info) Description 08/12/2023 Refill [facility] [address] [place], [place] [phone] Rey Soriano MD [address] [place], [place] [phone] Pain Social History Tobacco Use Types Packs/Day [...] 2:30 PM EDT Office Visit [facility] [address] [place] [phone] Rey Soriano MD [address] [place] [phone] documented as of this encounter Visit Diagnoses Diagnosis Pain Generalized pain documented in this encounter Care Teams Pension Examiner Relationship Specialty Start Date End Date Rey Soriano MD [address] [place] [phone] PCP - General Internal Medicine 07/04/14 documented as of this encounter
[2025-01-12 17:04] LABS: Ferritin 33 ng/mL (10-250)
[2025-01-13 09:38] LABS: Complement C3 106 mg/dL (83-193)
[2025-01-13 13:43] LABS: Anti DNA DS Antibody 5 IU/mL; Antibody to SS-A Antigen <1.0 NEG AI (<1.0 NEG); Antibody to SS-B Antigen <1.0 NEG AI (<1.0 NEG); SM/Ribonucleoprotein Ab <1.0 NEG AI (<1.0 NEG); Scleroderma 70 Antibody <1.0 NEG AI (<1.0 NEG); Smith Protein <1.0 NEG AI (<1.0 NEG)
[2025-01-14 14:57] LABS: Anti Nuclear Antibody Screen NEGATIVE (NEGATIVE)
== END 2025-01-12 14:44 | disposition home or self-care (01) ==
LOC: HO.LAB 14:43
PROVIDERS: PCP Internal Medicine; Visit Provider Student in an Organized Health Care Education/Training Program
DX: K74.69 Other cirrhosis of liver (principal); Z87.898 Personal history of other specified conditions
CPT/HCPCS: 36415; 80053; 81001; 82570; 82728; 83540; 84156; 85025; 85652; 86038; 86140; 86160; 86225; 86235; 86880

== ENCOUNTER 2025-02-02 13:27 | Outpatient (REF) | payer OTHER, SELFPAY ==
[2025-02-02 13:36] LABS: MANUAL DIFF FLAG NO
[2025-02-02 14:09] LABS: Basophils Absolute Auto 0.1 X10*3/uL (0.0-0.2); Basophils Percent Auto 0.9 % (0-2); Eosinophils Absolute Auto 0.2 X10*3/uL (0.0-0.4); Eosinophils Percent Auto 3.3 % (0-4); Hematocrit 34.4 % (37.0-47.0); Imm Gran Abs Auto 0.02 X10*3/uL (0.00-0.03); Imm Gran Pct Auto 0.4 % (0.0-0.4); Lymphocytes Absolute Auto 1.4 X10*3/uL (1.2-4.9); Lymphocytes Percent Auto 23.9 % (20-40); Mean Corpuscular Hemoglobin 28.5 pg (27.0-33.0); Mean Corpuscular Volume 89.1 fL (80.0-98.0); Mean Platelet Volume 12.1 fL (9.4-12.3); Monocytes Absolute Auto 0.6 X10*3/uL (0.1-1.2); Neutrophils Absolute Auto 3.5 x10*3/uL (2.0-8.3); Neutrophils Percent Auto 61.5 % (45-73); Red Blood Count 3.86 X10*6/uL (4.20-5.50); Red Cell Distribution Width 21.2 % (11.0-16.0); White Blood Count 5.7 X10*3/uL (4.8-10.8)
[2025-02-02 14:10] LABS: Platelet Count 91 X10*3/uL (160-400)
[2025-02-02 14:13] LABS: INTERNATIONAL NORM RATIO 1.3 (0.9-1.1); Prothrombin Time 15.6 SEC (10.9-12.4)
[2025-02-02 14:37] LABS: Alanine Aminotransferase 17 U/L (0-31); Albumin Level 3.1 g/dL (3.5-5.0); Alkaline Phosphatase 168 U/L (39-117); Aspartate Amino Transferase 43 U/L (5-31); Bilirubin Direct 0.8 mg/dL (0.0-0.5); Bilirubin Total 1.3 mg/dL (0.0-1.0); Total Protein 5.9 g/dL (6.5-8.0)
--- OUTSIDE RECORDS SUMMARY | 2025-02-02 14:45 | XMS_ITS | Encounter Summary ---
Author Organization [employer] Address [address] [facility] [address] [place] [address] Care Team Providers Care Riding Silks Custodian Name Role Phone Rey Soriano MD Primary Care Provide r Reason for Visit * Reason Onset Date Comments Appointment Request 01/28/2025 Encounter Details Date Type Department Care Team ([facility] st Contact Info) Description 01/28/2025 Telephone [facility] MED[facility] [address] [place] [address] Rey Soriano MD [address] [place], [place] [phone] Appointment Request Social History Tobacco Use Types Packs/Day Years [...] encounter Miscellaneous Notes * Telephone Encounter - Alvaro Merino - 01/28/2025 10:56 AM EDT Tc from pt requesting to scheduled appointment that was cancelled 01/27/2025 to soonest availability. Please return call [phone] Visit type - Office visit extended (30)min Provider - Rey Ellis Larry notes - hasn't seen PCP since 2022 documented in this encounter Plan of Treatment Upcoming Encounters Date Type Department Care Team (Late st Contact Info) Description 04/07/2025 2:30 PM EDT Office Visit [facility] [address] [place] [address] Rey Soriano MD [address] [place] [phone] documented as of this encounter Visit Diagnoses Not on filedocumented in this encounter Care Teams Riding Silks Custodian Relationship Specialty Start Date End Date Rey Soriano MD [address] [place] [address] PCP - General Internal Medicine 07/04/14 documented as of this encounter
--- OUTSIDE RECORDS SUMMARY | 2025-02-02 14:45 | XMS_ITS | Encounter Summary ---
Author Organization [employer] [facility] Address [address] [place] [address] [address] [place] [address] Care Team Providers Care Search Engine Optimization Analyst Name Role Phone Rey Soriano MD Primary Care Provide r Reason for Visit * Reason Comments Med Refill Encounter Details Date Type Department Care Team (Late st Contact Info) Description 04/16/2023 Refill [facility] MED[facility]INE [address] [place], [place] [phone] Rey Soriano MD [address] [place], [place] [phone] Acute nonintractable headache, unspecified headache type Social [...] Description 04/07/2025 2:30 PM EDT Office Visit [facility] [address] [place], [place] [phone] Rey Soriano MD [address] [place], [place] [phone] documented as of this encounter Visit Diagnoses Diagnosis Acute nonintractable headache, unspecified headache type documented in this encounter Care Teams Search Engine Optimization Analyst Relationship Specialty Start Date End Date Rey Soriano MD [address] [place] [address] PCP - General Internal Medicine 07/04/14 documented as of this encounter
--- OUTSIDE RECORDS SUMMARY | 2025-02-02 14:45 | XMS_ITS | Encounter Summary ---
Author Organization [employer] [facility] Address [address] [place] [address] 7 [place] [address] Care Team Providers Care Inserter Name Role Phone Rey Soriano MD Primary Care Provide r Reason for Visit * Reason Onset Date Comments Nurse Triage 06/23/2023 Encounter Details Date Type Department Care Team (Late st Contact Info) Description 06/23/2023 Telephone [facility] MED[facility]INE [address] [place] [address] Rey Soriano MD [address] [place] [address] Nurse Triage Social History Tobacco Use Types [...] 06/23/2023 11:18 AM EDT Triage call with [employer] ID [id number] Pt didn't answer x2. Left message to call [facility] [phone] Triage call with [employer] [place] [id number], Pt didn't answer, left voice message to call [facility] [phone] * Telephone Encounter - Dali Ribeiro - 06/23/2023 10:47 AM EDT Symptoms: Headache, Fever (105), Cough, Sore Throat Outcome: Schedule a same-day appointment or talk to a nurse or provider today Reason: Caller denied all higher acuity questions The caller accepted this outcome Patient speaks pakistani documented in this encounter Plan of Treatment Upcoming Encounters Date Type Department Care Team (Late st Contact Info) Description 04/07/2025 2:30 PM EDT Office Visit [facility] [address] [place] [phone] Rey Soriano MD [address] [place] [phone] documented as of this encounter Visit Diagnoses Not on filedocumented in this encounter Care Teams Inserter Relationship Specialty Start Date End Date Rey Soriano MD [address] [place] [phone] PCP - General Internal Medicine 07/04/14 documented as of this encounter
--- OUTSIDE RECORDS SUMMARY | 2025-02-02 14:45 | XMS_ITS | Clinical Summary ---
Author Organization [employer] Address [address] [place] [address] 7[address] [place] [address] Care Team Providers Care Cinder Block Maker Name Role Phone Rey Soriano MD Primary [...] MG capsule daily. Acti ve sodium chloride ([place] Nasal [place]) 0.65 % nasal sprayIndications:N angus congestion 1-2 [...] Under the care of liver clinic at [facility] Dr Justin Crook Elevated antinuclear antibody (LUCÍA) [...] sexually active pre-menopausal Pt was evaluated by [facility]'s leiter who recommended to proceed with Transvaginal US [...] the care of Dr Justin Rehman at [facility]. Last seen in 2022 had EGD that [...] HIV being followed by PrEP navigator at [facility] health care 10/01/2022 Assessment & Plan [...] personal goal for weight loss. Seen by Property Management Intern twice Will repeat Lipid profile Assessment & [...] personal goal for weight loss. Seen by Property Management Intern twice Microscopic hematuria 07/06/2012 Assessment & Plan [...] Encounters Date Type Department Care Team Description 01/28/2025 Telephone [facility] [place] [address] Rey Soriano MD Appointment Request 01/25/2025 Telephone [facility] [place] [place] [address] Rey Soriano MD Chart Prep 01/12/2025 Orders Only GENERIC EXTERNAL DATA DEPARTMENT Provider, Generic External Data 12/24/2024 Telephone [facility] [place] [address] Rey Soriano MD Durable Medical Equipment (Compression socks) 12/24/2024 Telephone [facility] [address] [place] [address] Oliver Ford CNP 12/23/2024 Orders Only [facility] [address] [facility] [place] [place] [address] Oliver Ford CNP Other cirrhosis of liver (CMS/HCC) (Primary Dx) 12/23/2024 Telephone [facility] [place] [address] Rey Soriano MD Lab Orders 12/22/2024 11:00 AM EDT Office Visit [facility] [address] [place] [address] Oliver Ford CNP Other cirrhosis of liver (CMS/HCC) (Primary Dx) 12/22/2024 Travel 12/20/2024 Telephone [facility] [address] [place] [address] Rey Soriano MD Nurse Triage 12/16/2024 Orders Only [facility] [address] [place] [address] Rey Soriano MD 12/02/2024 Telephone [facility] [address] [place], [place] [phone] Saira Ashton OD from Last 3 Months Immunizations Name Administration [...] Description 04/07/2025 2:30 PM EDT Office Visit [facility] [address] [place] [address] Rey Soriano MD [address] [place] [address] Health Maintenance Due Date Last Done Comments [...] Procedure Name Priority Date/Time Associated Diagnosis Comments LUCÍA SCREEN, IFA, W/REFL TITER AND PATTERN Routine 01/12/2025 3:09 PM EDT DNA (DS) ANTIBODY Routine 01/12/2025 3:0 9 PM EDT SCL-70 ANTIBODY Routine 01/12/2025 3:09 PM EDT SM AND SM/ADMINISTRATIVE OFFICE MANAGER ANTIBODIES Routine 01/12/2025 3:09 PM EDT SJOGREN'S ANTIBODIES (SS-A,SS-B) Routine 01/12/2025 3:09 PM EDT COMPLEMENT COMPONENT C4C Routine 01/12/2025 3:09 PM EDT COMPLEMENT COMPONENT C3C Routine 01/12/2025 3:09 PM EDT FERRITIN Routine 01/12/2025 3:09 PM EDT C-REACTIVE PROTEIN [...] Recently Relevant to Health Maintenance Results * Sm and Sm/ADMINISTRATIVE OFFICE MANAGER Antibodies (01/12/2025 3:09 PM EDT) SM Antibody <1.0 NEG <1.0 NEG [facility] SM/ADMINISTRATIVE OFFICE MANAGER Antibody <1.0 NEG <1.0 NEG [facility] Comment:THIS TEST WAS PERFOR MED AT:[id number] [place] [phone] LAW MD 01/12/2025 3:09 PM EDT 01/12/2025 3:09 PM EDT us Generic External Data Provider LAB BLOOD ORDERAB LES Final Result Performing Organization Address [facility] Co de Phone Number [facility] [address] [place] [phone] * Sjogren's Antibodies (SS-A,SS-B) (01/12/2025 3:09 PM EDT) Sjogren's Antibody (SS-A) <1.0 NEG <1.0 NEG [facility] Sjogren's Antibody (SS-B) <1.0 NEG <1.0 NEG [facility] Comment:THIS TEST WAS PERFOR MED AT:[id number] [place] [phone] LAW MD 01/12/2025 3:09 PM EDT 01/12/2025 3:09 PM EDT us Generic External Data Provider LAB BLOOD ORDERAB LES Final Result Performing Organization Address [facility]/ZIP Co de Phone Number [facility] [address] [place] [phone] * (ABNORMAL) CBC auto differential (01/12/2025 3:09 PM EDT) Only the most recent of2 resultswithin the time period is included. White Blood Count 6.6 4.8 - 10.8 X10*3/uL [facility] Red Blood Count 3.88(L) 4.20 - 5.50 X10*6/uL [facility] Hemoglobin 10.4(L) 12.0 - 16.0 g/dl [facility] Hematocrit 33.5(L) 37.0 - 47.0 % [facility] Mean Corpuscular Volume 86.3 80.0 - 98.0 fL [facility] Mean Corpuscular Hemoglobin 26.8(L) 27.0 - 33.0 pg [facility] Mean Corpuscular HGB Conc 31.0 31.0 - 35.0 g/dl [facility] Red Cell Distribution Width 18.9(H) 11.0 - 16.0 % [facility] Platelet Count 116(L) 160 - 400 X10*3/uL [facility] Mean Platelet Volume 11.9 9.4 - 12.3 fL [facility] Neutrophils Percent Auto 62.7 45 - 73 % [facility] Imm Gran Pct Auto 0.5(H) 0.0 - 0.4 % [facility] Lymphocytes Percent Auto 23.3 20 - 40 % [facility] Monocytes Percent Auto 8.1 2 - 11 % [facility] Eosinophils Percent Auto 4.6(H) 0 - 4 % [facility] Basophils Percent Auto 0.8 0 - 2 % [facility] NRBC Pct Auto 0.0 0.0 - 0.2 /100WBC [facility] Neutrophils Absolute Auto 4.1 2.0 - 8.3 x10*3/uL [facility] Imm Gran Abs Auto 0.03 0.00 - 0.03 X10*3/uL [facility] Lymphocytes Absolute Auto 1.5 1.2 - 4.9 X10*3/uL [facility] Monocytes Absolute Auto 0.5 0.1 - 1.2 X10*3/uL [facility] Eosinophils Absolute Auto 0.3 0.0 - 0.4 X10*3/uL [facility] Basophils Absolute Auto 0.1 0.0 - 0.2 X10*3/uL [facility] NRBC Abs Auto 0.000 0.0 - 0.012 X10*3/uL [facility] 01/12/2025 3:09 PM EDT 01/12/2025 3:09 PM EDT Generic External Data Provider LAB BLOOD ORDERAB LES Final Result Performing Organization Address [facility] Co de Phone Number [facility] [address] [place] [phone] * Iron And Total Iron Binding Capacity (01/12/2025 3:09 PM EDT) Iron 84 30 - 160 mcg/dL [facility] Total Iron Binding Capacity 346 228 - 428 mcg/dL [facility] Percent Iron Saturation 24 15 - 50 % [facility] Unsaturated Iron Binding 262 ug/dL [facility] 01/12/2025 3:09 PM EDT 01/12/2025 3:09 PM EDT Generic External Data Provider LAB BLOOD ORDERAB LES Final Result Performing Organization Address [facility] de Phone Number [facility] [address] [place] [phone] * SCL-70 Antibody (01/12/2025 3:09 PM EDT) SCL-70 Antibody <1.0 NEG <1.0 NEG AI [facility] Comment:THIS TEST WAS PERFOR MED AT:[id number] [place] [phone] LAW MD 01/12/2025 3:09 PM EDT 01/12/2025 3:09 PM EDT Generic External Data Provider LAB BLOOD ORDERAB LES Final Result Performing Organization Address [facility] de Phone Number [facility] [address] [place] [phone] * (ABNORMAL) DNA (ds) Antibody (01/12/2025 3:09 PM EDT) Pathologist [facility] Anti DNA DS Antibody 5(A) IU/mL [facility] Comment:IU/mL Interpretation < or = 4 Negative 5-9 Indeterminate > or = 10 PositiveTHIS TEST WAS PERFORMED AT:[id number] [place] [phone] LAW MD 01/12/2025 3:09 PM EDT 01/12/2025 3:09 PM EDT Generic External Data Provider LAB BLOOD ORDERAB LES Final Result Performing Organization Address [facility] Co de Phone Number [facility] [address] [place] [phone] * Sed Rate by Modified Monicaren (01/12/2025 3:09 PM EDT) [facility] Erythrocyte Sedimentation Rate 10 0 - 20 MM/HR [facility] Comment:Patients with polycy themia and many hemoglobin abnormalitiesmay have depressed sed rates whereas patients with anemiamay have elevated sed rates. 01/12/2025 3:09 PM EDT 01/12/2025 3:09 PM EDT Generic External Data Provider LAB BLOOD ORDERAB LES Final Result Performing Organization Address [facility] Co de Phone Number [facility] [address] [place] [phone] [phone] * Direct Antiglobulin Test (MENG) (01/12/2025 3:09 PM EDT) Pathologist [facility] MENG Result Polyspecific NEGATIVE [facility] MENG Result Comment TNP [facility] Comment:Test not indicated 01/12/2025 3:09 PM EDT 01/12/2025 3:33 PM EDT Generic External Data Provider LAB BLOOD ORDERAB LES Final Result Performing Organization Address [facility] Co de Phone Number [facility] [address] [place] [phone] * Complement Component C3c (01/12/2025 3:09 PM EDT) Complement C3 106 83 - 193 mg/dL [facility] Comment:THIS TEST WAS PERFOR MED AT:[id number] [place] [phone] LAW MD 01/12/2025 3:09 PM EDT 01/12/2025 3:09 PM EDT Generic External Data Provider LAB BLOOD ORDERAB LES Final Result Performing Organization Address [facility] Co de Phone Number [facility] [address] [place] [phone] * (ABNORMAL) Complement Component C4c (01/12/2025 3:09 PM EDT) Complement C4 9(A) 15 - 57 mg/dL [facility] Comment:THIS TEST WAS PERFOR MED AT:[id number] [place] [phone] LAW MD 01/12/2025 3:09 PM EDT 01/12/2025 3:09 PM EDT Generic External Data Provider LAB BLOOD ORDERAB LES Final Result Performing Organization Address [facility] Co de Phone Number [facility] [address] [place] [phone] * (ABNORMAL) C-reactive Protein (01/12/2025 3:09 PM EDT) C Reactive Protein 0.77(H) < or = 0.50 mg/dL [facility] 01/12/2025 3:09 PM EDT 01/12/2025 3:09 PM EDT us Generic External Data Provider LAB BLOOD ORDERAB LES Final Result [facility] [address] [place] [phone] * LUCÍA Screen,IFA, with Reflex to Titer and Pattern (01/12/2025 3:09 PM EDT) Anti Nuclear Antibody Screen NEGATIVE NEGATIVE [facility] Comment:LUCÍA IFA is a first l ine screen for detecting thepresence of up to approximately 150 autoantibodies invarious autoimmune diseases. A negative LUCÍA IFA resultsuggests an LUCÍA-associated autoimmune disease is notpresent at this time, but is not definitive. If thereis high clinical suspicion for Sjogren's syndrome,testing for anti-SS-A/Ro antibody should be considered.Anti-Precious-1 antibody should be considered for clinicallysuspected inflammatory myopathies.AC-0: NegativeInternational Consensus on LUCÍA Patterns(https://doi.org/10.1515/zkus-3943-7086)For additional information, please refer tohttp://education.ANDalyze.Fanaticall/faq/IWZ721(This link is being provided for informational/educational purposes only.)THIS TEST WAS PERFORMED AT:[id number] [place] [phone] LAW MD LUCÍA Titer TNP [facility] LUCÍA Pattern [facility] LUCÍA TITER 2 (REF LAB) [facility] LUCÍA Pattern 2 [facility] LUC[facility] TITER 3 [facility] LUCÍA PATTERN 3 [facility] 01/12/2025 3:09 PM EDT 01/12/2025 3:09 PM EDT us Generic External Data Provider LAB BLOOD ORDERAB LES Final Result Performing Organization Address City/[facility]/ZIP Co de Phone Number [facility] [address] [place] [phone] * Ferritin (01/12/2025 3:09 PM EDT) Ferritin 33 10 - 250 ng/mL [facility] 01/12/2025 3:09 PM EDT 01/12/2025 3:09 PM EDT Generic External Data Provider LAB BLOOD ORDERAB LES Final Result Performing Organization Address [facility] Co de Phone Number [facility] [address] [place] [phone] * (ABNORMAL) Comprehensive Metabolic Panel (01/12/2025 3:09 PM EDT) Only the most recent of2 resultswithin the time period is included. Pathologist [facility] Sodium 141 135 - 145 mmol/L [facility] Potassium 4.2 3.3 - 5.1 mmol/L [facility] Chloride 111(H) 96 - 108 mmol/L [facility] Carbon Dioxide 25 22 - 29 mmol/L [facility] Anion Gap 9(L) 12 - 20 [facility] Urea Nitrogen (BUN) 9 9 - 16 mg/dL [facility] Creatinine, Serum 0.71 0.5 - 1.4 mg/dL [facility] Estimated Glomerular Filt Rate >60 [facility] Comment:Chronic Kidney Disea se: Estimated GFR < 60 mL/min/[id number] Kidney Disease: Estimated GFR < 15 mL/min/1.73m2 Glucose 92 60 - 115 mg/dL [facility] Calcium 8.8 8.4 - 10.2 mg/dL [facility] Bilirubin, Total 1.6(H) 0.0 - 1.0 mg/dL [facility] Aspartate Amino Transferase 36(H) 5 - 31 U/L [facility] Alanine Aminotransferase 11 0 - 31 U/L [facility] Total Protein 5.8(L) 6.5 - 8.0 g/dL [facility] Albumin Level 3.0(L) 3.5 - 5.0 g/dL [facility] Alkaline Phosphatase 145(H) 39 - 117 U/L [facility] 01/12/2025 3:09 PM EDT 01/12/2025 3:09 PM EDT Generic External Data Provider LAB BLOOD ORDERAB LES Final Result Performing Organization Address [facility] Co de Phone Number [facility] [address] [place] [phone] * Protein Creatinine Ratio, Urine (01/12/2025 3:03 PM EDT) Creatinine, Urine 149.17 mg/dL [facility] Protein, Total, Random Urine <7 <12 mg/dL [facility] Protein/Creatin ine Ratio, Ur TNP <0.2 [facility] Comment:Unable to calculate urine protein creatinine ratio due tolow creatinine or protein result. 01/12/2025 3:03 PM EDT 01/12/2025 3:36 PM EDT Generic External Data Provider LAB URINE ORDERAB LES Final Result Performing Organization Address [facility] Co de Phone Number [facility] [address] [place] [phone] * Urinalysis Complete (01/12/2025 3:03 PM EDT) Color Urine Dark Yellow [facility] Appearance Urine Clear [facility] PH 6.5 5.0 - 9.0 [facility] Glucose Urine UA Negative Negative mg/dL [facility] Urine Blood Negative Negative [facility] Specific [place] - Urine 1.025 1.005 - 1.025 [facility] Urine Protein Negative Neg-Trace mg/dL [facility] Urine Ketones Negative Negative mg/dL [facility] Nitrite Urine Negative Negative [facility] Leukocyte Esterase Urine Negative Negative [facility] RBC Urine 0-2 0 - 2 /HPF [facility] Urine WBC 0-5 0 - 5 /HPF [facility] Urine Squamous Epithelial Cell 0-2 0 - 2 /HPF [facility] Urine Bacteria None Seen None Seen [facility] Hyaline Casts, Urine 0-2 0 - 2 /LPF [facility] 01/12/2025 3:03 PM EDT 01/12/2025 3:36 PM EDT Narrative [facility] - 01/12/2025 3:54 PM EDT Urine, Clean Catch Generic External Data Provider LAB URINE ORDERAB LES Final Result Performing Organization Address City/State/[facility] Co de Phone Number [facility] [address] [place] [phone] * (ABNORMAL) POCT Urinalysis (12/22/2024 12:03 PM EDT) Color, UA Josephine Clarity, UA Clear Glucose, UA Negative Bilirubin, UA Negative Ketones, UA Negative Spec Grav, UA 1.025 Blood, UA Positive(A) Negative, None Detected pH, UA 6.0 Protein, UA Trace Urobilinogen, UA 1.0 Leukocytes, UA Negative Negative, Rare, Trace Nitrite, UA Negative Negative, None Detected Appearance, UA Josephine QC [employer] Lot # [id number] Lot# Expiration Date [id number] Urine 12/22/2024 12:0 3 PM EDT [facility] POINT OF CARE TEST ENTER/ EDIT ORDERABLES Final Result * Culture, Urine, Routine (12/22/2024 12:00 AM EDT) Urine Urine specimen obtained by clean catch procedure / Unknown 12/22/2024 12/22/2024 Comment:UACC Narrative [facility] - 12/24/2024 10:12 AM EDT Urine Culture No growth. Specimen Source: Urine clean catch [facility] MICROBIOLOGY - GENERA L ORDERABLES Final Result [facility] [address] [facility] [place] [address] [phone] * BI Mammogram Screening Tomosynthesis Bilateral (12/16/2024 9:46 AM EDT) Anatomical Region Laterality Modality Breast Bilateral Mammography 12/16/2024 9:46 AM EDT Narrative 12/24/2024 3:51 PM EDT ? [facility] [place] ? [address] ?[place] [address] ?[phone] ? Mammography Report ? Signed ? Patient: Magriz,Carissa ?MR#: [id number] ? : 1965 ?Acct:[id number] ? Age/Sex: 59 / F ?ADM Date: 12/16/ ? Loc: HO.MAMMO ? Attending Dr: Rey Bess MD ? Ordering Physician: Rey Bess MD ?Resu ?? lts: 1Negative ? Date of Service: 12/16/ ?Follow Up: 1 Year From Orig ?? inal Mammogram ? Procedure(s): MM tomosynthesis screening BI ?? Accession Number(s): [id number] ? cc: Rey Bess MD ? EXAMINATION: [...] ? Signed By: ?<Electronically signed by Selma Combs DO in OV> ? 12/24/24 1548 ? DD/ 0946 ? TD/TT: 12/16/24 1010 ? Hat Sizer: ? Procedure Note Fadia, Image - 12/24/2024 [facility] [address] [place] [address] [place] [address] Mammography Report Signed Patient: Dawna Winslow#: [id number] : 1965Acct:[id number] Age/Sex: 59 / FADM Date: 12/16/24 Loc: [place].MAMMO Attending Dr: Rey Bess MD Ordering Physician: Rey Bess MDResu lts: 1Negative Date of Service: 12/16/24Follow Up: 1 Year From Orig inal Mammogram Procedure(s): MM tomosynthesis screening BI Accession Number(s): [id number] cc: Rey Bess MD EXAMINATION: MM SCREENING [...] 12/24/24 1548 DD/ 0946 TD/TT: 12/16/24 1010 Hat Sizer: us Rey Ellis MD IMG BI PROCEDURES Fin al Result * (ABNORMAL) Lipid Panel with Reflex to Direct LDL (07/07/2023 9:16 AM EDT) Triglycerides 115 <150 mg/dL [facility] Comment:Desirable Triglyceri de: less than 150 mg/dLBorderline High Triglyceride 150-199 mg/dLHigh Triglyceride: 200-499 mg/dLVery High Triglyceride: greater than or equal to 5OO mg/dL Cholesterol 154 <200 mg/dL [facility] Comment:Desirable Cholestero l: less than 200 mg/dLBorderline High Cholesterol: 200-239 mg/dLHigh Cholesterol: greater than 239 mg/dL LDL Cholesterol Calculated 104(H) <100 mg/dL [facility] Comment:Desirable LDL: less than 100 mg/dLNear Optimal/Above Optimal LDL: 110- 129 mg/dLBorderline High LDL: 130-159 mg/dLHigh LDL: 160-189 mg/dLVery High LDL: greater than or equal to 190 mg/dL HDL Cholesterol 27(L) >40 mg/dL [facility] Comment:Desirable HDL: great er than 40 mg/dL Note: This HDL assay may give artificially low results in patients with liver disease. Blood 07/07/2023 9:16 AM EDT 07/07/2023 9:16 AM EDT Rey Ellis MD LAB BLOOD ORDERABLES Final Result [facility] [address] [place] [phone] * Pap Smear (11/28/2022) Pap Negative [...] a test for HCV RNA (test code 68488) is suggested. ?? For additional information please refer to http://education.Adar IT/faq/WGJ30k8 (This link is being provided for informational/ educational purposes only.) ?? 07/02/2021 9:13 AM EDT us Aziza Otto ANP HISTORICAL/NON ORDERABLE LABS Fi nal Result Performing Organization Address [facility] Co de Phone Number [facility] [address] [place] [address], * HIV 1/2 ANTIGEN/ANTIBODY,FOURTH GENERATION W/RFL (07/02/2021 9:13 AM EDT) HIV-1/2 ANTIGEN AND ANTIBODIES, 4TH GENERATION W/ REFLEX NON-REACT PARK NON-REACT PARK [facility] Comment: HIV-1 antigen and [...] ? For additional information please refer to http://education.Adar IT/faq/PFL162 (This link is being provided for informational/ educational purposes only.) ? The performance of this assay has not been clinically validated in patients less than 2 years old. ?? 07/02/2021 9:13 AM EDT us Aziza Otto ANP LAB BLOOD ORDERABLES Final Resul t Performing Organization Address [facility] Co de Phone Number [facility] [address] [place] [address], [place] * Hm Colonoscopy (02/13/2015 8:32 AM EDT) Colonoscopy Normal Normal Alpa Scott - 02/13/2015 8:32 AM EDT Recommended 10 year follow up per pcp note hyperplastic polyp us Historical Provider HEALTH MAINTENANCE Edited Result - Final from Last 3 Months or Most Recently Relevant to Health Maintenance Insurance [facility] ONE CARE < 65 Care Teams Cinder Block Maker Relationship Specialty Start Date End Date Rey Soriano MD [address] [place] [phone] PCP - General Internal Medicine 07/04/14
--- OUTSIDE RECORDS SUMMARY | 2025-02-02 14:45 | XMS_ITS | Encounter Summary ---
Author Organization [employer] Address [address] [facility] 7[address] [place] [address] Care Team Providers Care Chief Writer Name Role Phone Rey Soriano MD Primary Care Provide r Reason for Visit * Reason Onset Date Comments Durable Medical Equipment 12/24/2024 Compre ssion socks Encounter Details Date Type Department Care Team ([facility] st Contact Info) Description 12/24/2024 Telephone [facility] MEDICINE [address] [place] [address] Rey Soriano MD [address] [place] [address] Durable Medical Equipment (Compression socks) Social History [...] * Telephone Encounter - Digna Levi - 01/28/2025 4:06 PM EDT Pt no showed to 01/27 appt with pcp. [facility] global coordinator notified of missed appt and informed pt will need to schedule appt for DME. * Telephone Encounter - Digna Levi - 01/26/2025 9:53 AM EDT Please see message below from [facility] patient care associate. Pt scheduled for tomorrow. Thank you ----- Message ----- From: Zulma Segundo Sent: 01/19/2025 12:27 PM EDT To: Digna Levi Subject: DME question Good afternoon, I have a script for compression stockings for member however, there is No lymphedema diagnosis present so this patient does not currently qualify for this product without lymphedema on script. Can you possibly send message to PCP? They would also need leg measurements. Thank you. * Telephone Encounter - Digna Levi - 01/04/2025 11:18 AM EDT Signed Rx for compression socks received and scanned into media. [facility] care team supevisors Ying Singer and Rachele Singer notified via [employer] staff message. * Telephone Encounter - Digna Levi - 12/24/2024 1:39 PM EDT DME RX for Compression stockings generated and placed on providers desk for signature. * Telephone Encounter - Digna Levi - 12/24/2024 1:39 PM EDT ----- Message from Oliver Ford sent at 12/23/2024 6:17 PM EDT ----- Hi Digna knee high and 20-30 mmHg please and [...] Description 04/07/2025 2:30 PM EDT Office Visit [facility] [address] [place] [address] Rey Soriano MD [address] [place] [address] documented as of this encounter Visit Diagnoses Not on filedocumented in this encounter Care Teams Chief Writer Relationship Specialty Start Date End Date Rey Soriano MD [address] [place] [address] PCP - General Internal Medicine 07/04/14 documented as of this encounter
--- OUTSIDE RECORDS SUMMARY | 2025-02-02 14:45 | XMS_ITS | Encounter Summary ---
Author Organization [employer] [facility] Address [address] [place] [address] [address] [place] [address] Care Team Providers Care Thermite Welder Name Role Phone Rey Soriano MD Primary Care Provide r Encounter Details Date Type Department Care Team (Late Contact Info) Description 02/06/2023 Abstract [facility] MEDICINE [address] [place] [address] [phone] Rey Soriano MD [address] [place] [address] [phone] Social History Tobacco Use Types Packs/Day Years [...] Description 04/07/2025 2:30 PM EDT Office Visit [facility] MEDICINE [address] [place] [address] [phone] Rey Soriano MD [address] [place] [phone] documented as of this encounter Procedures Procedure Name Priority Date/Time Associated Diagnosis Comments HM COLONOSCOPY Routine 02/13/2015 8:32 AM EDT documented in this encounter Results * Colonoscopy (02/13/2015 8:32 AM EDT) Colonoscopy Normal Normal Narrative Alpa Concepcion - 02/13/2015 8:32 AM EDT Recommended 10 year follow up per pcp note hyperplastic polyp us Historical Provider [facility] Edited Result - Final documented in this encounter Visit Diagnoses Not on filedocumented in this encounter Care Teams Thermite Welder Relationship Specialty Start Date End Date Rey Soriano MD [address] [place] [phone] PCP - General Internal Medicine 07/04/14 documented as of this encounter
--- OUTSIDE RECORDS SUMMARY | 2025-02-02 14:45 | XMS_ITS | Encounter Summary ---
Author Organization [employer] [facility] Address [address] [place] [address] 7[address] [place] [address] Care Team Providers Care Sales Activity Manager Name Role Phone Rey Soriano MD Primary Care Provide r Encounter Details Date Type Department Care Team ([facility] Contact Info) Description 09/23/2022 Telephone [facility] MEDICINE [address] [place] [address] [phone] Rey Soriano MD [address] [place] [address] [phone] Social History Tobacco Use Types Packs/Day Years [...] Department Care Team (Late Contact Info) Description 04/07/2025 2:30 PM EDT Office Visit [facility] MEDICINE [address] [place] [address] [phone] Rey Soriano MD [address] [place], [place] [phone] documented as of this encounter Visit Diagnoses Not on filedocumented in this encounter Care Teams Sales Activity Manager Relationship Specialty Start Date End Date Rey Soriano MD [address] [place] [address] PCP - General Internal Medicine 07/04/14 documented as of this encounter
--- OUTSIDE RECORDS SUMMARY | 2025-02-02 14:45 | XMS_ITS | Encounter Summary ---
Author Organization [facility] Address [address] [place] [address] 7 [place] [address] Care Team Providers Care Driver/Sales Workers Name Role Phone Rey Soriano MD Primary Care Provide r Reason for Visit * Reason Comments Med Refill Encounter Details Date Type Department Care Team (Late st Contact Info) Description 05/14/2023 Refill [facility]INE [address] [place], [place] [phone] Chiquis Kumar MD [address] [place], [place] [phone] Acute nonintractable headache, unspecified headache type Social [...] Description 04/07/2025 2:30 PM EDT Office Visit [facility]INE [address] [place], [place] [phone] Rey Soriano MD [address] [place], [place] [phone] documented as of this encounter Visit Diagnoses Diagnosis Acute nonintractable headache, unspecified headache type documented in this encounter Care Teams Driver/Sales Workers Relationship Specialty Start Date End Date Rey Soriano MD [address] [place] [phone] PCP - General Internal Medicine 07/04/14 documented as of this encounter
--- OUTSIDE RECORDS SUMMARY | 2025-02-02 14:46 | XMS_ITS | Encounter Summary ---
Author Organization [employer] Address [address] [facility] 7t [place] [address] Care Team Providers Care Real Estate Investor Name Role Phone Rey Soriano MD Primary Care Provide r Reason for Visit * Reason Comments Med Refill Encounter Details Date Type Department Care Team ([facility] st Contact Info) Description 08/12/2023 Refill [facility] MEDICINE [address] [place], [place] [phone] Rey Soriano MD [address] [place], [place] [phone] Pain Social History Tobacco Use Types Packs/Day [...] Description 04/07/2025 2:30 PM EDT Office Visit [facility] MEDICINE [address] [place] [address] Rey Soriano MD [address] [place] [phone] documented as of this encounter Visit Diagnoses Diagnosis Pain Generalized pain documented in this encounter Care Teams Real Estate Investor Relationship Specialty Start Date End Date Rey Soriano MD [address] [place] [address] PCP - General Internal Medicine 07/04/14 documented as of this encounter
[2025-02-04 11:03] LABS: Alpha Fetoprotein 6.5 ng/mL
[2025-02-07 01:28] LABS: FIB-ALT 19 U/L (6-29); FIB-Alpha-2-Macroglobulin 254 mg/dL (106-279); FIB-Apolipoprotein A1 86 mg/dL (101-198); FIB-GGT 18 U/L (3-65); FIB-Haptoglobin 12 mg/dL (43-212); FIB-Total Bilirubin 1.2 mg/dL (0.2-1.2); Liver Fibrosis Score 0.85; Liver Fibrosis Stage F4; Nec Inflam Act Grade A0; Nec Inflam Act Score 0.16; Reference ID 5467960
== END 2025-02-02 13:28 | disposition home or self-care (01) ==
LOC: HO.LAB 13:27
PROVIDERS: PCP Internal Medicine; Visit Provider Internal Medicine
DX: K76.0 Fatty (change of) liver, not elsewhere classified (principal)
CPT/HCPCS: 36415; 80076; 81596; 82105; 85025; 85610